=== PATIENT | female | born 1940 | race Caucasian/White ===

== ENCOUNTER → 2016-10-13 | Outpatient (CLI) | payer OTHER ==
[~2016-10-13] MED LIST: ACETTAB14 PO; ALPR-385 PO; ALPR-411 PO; AMLO-110 PO; CHOL1000 PO; COEN100C11 PO; CYAN50TA2 PO; DOCU-94 PO; DOCU100C31 PO; ESOM20CA PO; HYDR-3419 PO; LETR2TAB PO; MAGN1CAP2 PO; MAGN400T6 PO; MONT1TAB3 PO; NRV5 PO; ONDA4TAB4 PO; ONDA4TAB46 PO; PRLSR20 PO; SULF800T23 PO; TURM500T PO; [UNRECOGNIZED DRUG - CODE] PO; coq10 PO; tumeric PO
--- NOTE | 2016-10-13 13:21 | DIAGNOSTIC IMAGING REPORT ---
ABDOMEN 2VIEW W/PA CHEST RTN CLINICAL HISTORY: R14.0 Abdominal [id number] COMPARISON STUDY: Chest x-ray dated 12/05/2014 FINDINGS: The left-sided A-Port catheter has been removed. Surgical clips project over both axillary regions. The heart is at the upper limits of normal in size. There is no free air. There are suspected bilateral breast implants. There is no focal pulmonary consolidation. There are no abnormally dilated loops of large or small bowel. There are no transition zone to indicate bowel obstruction. There are scattered stool throughout the colon. Degenerative changes are present within the lumbar spine. IMPRESSION: No evidence of bowel obstruction. No evidence of free air. Electronically signed by: Je Romero M.D. 10/13/2016 1:19 PM Dictated Date/Time: 10/13/2016 1:18 PM
== END | disposition home or self-care (01) ==
LOC: C.RAD1850 12:44
PROVIDERS: ATTEND Internal Medicine
DX: R14.0 Abdominal distension (gaseous) (principal)

== ENCOUNTER → 2016-10-20 | Outpatient (CLI) | payer OTHER ==
--- NOTE | 2016-10-20 13:54 | DIAGNOSTIC IMAGING REPORT ---
NUCLEAR GASTRIC EMPTYING STUDY HISTORY: Abdominal bloating. COMPARISON: None. TECHNIQUE: Following the oral administration of 1 mCi of technetium 99m sulfur colloid in egg sandwich and 8 ounces of water, static abdominal images are obtained anteriorly and posteriorly at 0 minutes, 1 hour, 2 hour, and 4 hour time intervals. Gastric emptying was calculated utilizing the geometric mean method. FINDINGS: There is approximately 83% activity remaining at the 1 hour time interval (normal is less than 90%), 47% remaining at the 2 hour time interval (normal is less than 60%), and 1% activity remaining at the 4 hour time interval (normal is less than 10%). IMPRESSION: No evidence for delayed gastric emptying. Electronically signed by: Emil Lindsey M.D. 10/20/2016 1:53 PM Dictated Date/Time: 10/20/2016 1:52 PM
== END | disposition home or self-care (01) ==
LOC: C.NUCL 09:10
PROVIDERS: ATTEND Internal Medicine
DX: R14.0 Abdominal distension (gaseous) (principal)

== ENCOUNTER → 2016-11-01 | Outpatient (CLI) | payer OTHER ==
--- NOTE | 2016-11-01 14:09 | DIAGNOSTIC IMAGING REPORT ---
LEFT SHOULDER 3 VIEWS CLINICAL HISTORY: Left shoulder pain. FINDINGS: 3 views of the left shoulder are compared to study dated 07/05/2014. The skeletal structures are osteopenic. There is no radiographic evidence of fracture or dislocation. Minimal productive change is seen at the acromioclavicular articulation. The glenohumeral joint is preserved. The overlying soft tissues are within normal limits. Left axillary surgical clips are identified. The visualized left lung parenchyma appears clear. There is atherosclerotic calcification of the thoracic area. IMPRESSION: No acute bony abnormality is seen in the left shoulder. Electronically signed by: Rashid Jarvis M.D. 11/01/2016 2:08 PM Dictated Date/Time: 11/01/2016 2:07 PM
== END | disposition home or self-care (01) ==
LOC: C.RAD1850 13:15
PROVIDERS: ATTEND Internal Medicine
DX: M25.512 Pain in left shoulder (principal)

== ENCOUNTER → 2016-12-01 | Outpatient (CLI) | payer OTHER ==
[2016-12-01 17:27] LABS: BASO % 1.2 %; BASO ABS # 0.06 K/uL (0-0.2); COMPLETE YES; EOS % 2.3 %; HEMATOCRIT 37.3 % (37-47); IG% 0.4 %; LYMPH % 26.3 %; LYMPH ABS # 1.37 K/uL (1.2-3.4); MEAN CELL VOLUME 85.2 fL (80-100); MEAN CORPUSCULAR HEMOGLOBIN 29.2 pg (25-34); MEAN CORPUSCULAR HGB CONC 34.3 g/dl (32-36); MONO % 6.7 %; NEUT % 63.1 %; PLATELET COUNT 243 K/uL (130-400); RED BLOOD COUNT 4.38 M/uL (4.2-5.4)
[2016-12-01 17:39] LABS: ALT/SGPT 21 U/L (12-78); AST/SGOT 10 U/L (15-37); BLOOD UREA NITROGEN 15 mg/dl (7-18); BUN/CREATININE RATIO 14.9 (10-20); CALCIUM 9.8 mg/dl (8.5-10.1); CARBON DIOXIDE 29 mmol/L (21-32); CHLORIDE 101 mmol/L (98-107); GLUCOSE 100 mg/dl (70-99); SODIUM 139 mmol/L (136-145)
[2016-12-01 17:42] LABS: ALB/GLOB RATIO 1.1 (0.9-2); ALKALINE PHOSPHATASE 84 U/L (45-117)
== END | disposition home or self-care (01) ==
LOC: C.LABBFT 10:16
PROVIDERS: ATTEND Internal Medicine Hematology & Oncology
DX: C50.912 Malignant neoplasm of unspecified site of left female breast (principal); I10 Essential (primary) hypertension

== ENCOUNTER → 2016-12-09 | Outpatient (CLI) | payer OTHER ==
--- NOTE | 2016-12-09 09:53 | DIAGNOSTIC IMAGING REPORT ---
CHEST CT WITH CONTRAST CT DOSE: 341.00 mGy.cm HISTORY: PULMONARY NODULES TECHNIQUE: Multiaxial CT images of the chest were performed following the intravenous administration of contrast. COMPARISON: 12/04/2015 FINDINGS: The small pleural-based nodules present described are stable to slightly diminished in size. There is no evidence for new interval or progressive process. Lungs currently are considered clear. There is no significant hilar or mediastinal adenopathy. Limited evaluation the upper abdomen shows fatty infiltration of liver. Bilateral breast augmentation mammoplasties are noted. IMPRESSION: Stable to improved low suspicion ulnar nodularity primarily of the right hemithorax. 2. No evidence for new interval or progressive process. 3. One additional 1 year follow-up is suggested Electronically signed by: Anthony Hamilton M.D. 12/09/2016 9:52 AM Dictated Date/Time: 12/09/2016 9:47 AM
== END | disposition home or self-care (01) ==
LOC: C.CTS 09:27
PROVIDERS: ATTEND Internal Medicine
DX: R91.1 Solitary pulmonary nodule (principal)

== ENCOUNTER → 2017-01-28 | Outpatient (CLI) | payer OTHER ==
[~2017-01-28] MED LIST changes: -ACETTAB14 PO; +ACETTAB15 PO
== END | disposition home or self-care (01) ==
LOC: C.LABSPEC 14:47
PROVIDERS: ATTEND Internal Medicine
DX: D64.9 Anemia, unspecified (principal)

== ENCOUNTER → 2017-02-01 | Outpatient (CLI) | payer OTHER ==
--- NOTE | 2017-02-15 07:48 | CODING QUERY MEDICAL NECESSITY ---
SUPPORTING DIAGNOSIS NEEDED Dr. Tinajero, A supporting diagnosis is required for the test/procedure performed on this patient in order for us to be reimbursed by the patient's insurance. Please provide a supporting diagnosis for the following test/procedure listed below next to the test name along with your signature. *If there is no additional diagnosis for this patient that would support the following test/procedure please document that below next to the test/procedure. Test(s)/Procedure(s) that require a supporting diagnosis: * ([id number]) DXA BONE DENSITY, AXIAL DIAGNOSIS: DATE OF SERVICE: 02/01/17 Provider Signature: Date: Thank you Aristides Nevarez [facility] Information Management Once completed, please kindly fax back to [phone] For questions please call [phone]
== END | disposition home or self-care (01) ==
LOC: C.MAMM 09:23
PROVIDERS: ATTEND Internal Medicine Hematology & Oncology
DX: C50.412 Malignant neoplasm of upper-outer quadrant of left female breast (principal)

== ENCOUNTER → 2017-03-14 | Outpatient (CLI) | payer OTHER ==
--- NOTE | 2017-03-14 16:46 | DIAGNOSTIC IMAGING REPORT ---
ULTRASOUND RIGHT VENOUS DOPPLER UPR EXT UNILAT CLINICAL HISTORY: Right arm pain and swelling COMPARISON STUDY: No previous studies for comparison. FINDINGS: No intraluminal thrombus was visualized. The internal jugular, subclavian, axillary, cephalic, brachial, basilic, radial, and ulnar veins were patent. IMPRESSION: No evidence of right upper extremity DVT. Electronically signed by: Je Romero M.D. 03/14/2017 4:44 PM Dictated Date/Time: 03/14/2017 4:44 PM
--- NOTE | 2017-03-18 11:26 | CODING QUERY MEDICAL NECESSITY ---
SUPPORTING DIAGNOSIS NEEDED Shapich, A supporting diagnosis is required for the test/procedure performed on this patient in order for us to be reimbursed by the patient's insurance. Please provide a supporting diagnosis for the following test/procedure listed below next to the test name along with your signature. *If there is no additional diagnosis for this patient that would support the following test/procedure please document that below next to the test/procedure. Test(s)/Procedure(s) that require a supporting diagnosis: * ([id number]) VENOUS DOPPLER UPPER EXT UNILA DIAGNOSIS: DATE OF SERVICE: 03/14/17 Provider Signature: Date: Thank you Aristides Nevarez [facility] Information Management Once completed, please kindly fax back to [phone] For questions please call [phone]
== END | disposition home or self-care (01) ==
LOC: C.ULTR 15:27
PROVIDERS: ATTEND Physician Assistant Medical
DX: M79.89 Other specified soft tissue disorders (principal)

== ENCOUNTER 2017-03-25 12:22 | Emergency (ER) | payer OTHER ==
[~2017-03-25] VITALS: Ht 160 cm; Wt 65.1 kg
[~2017-03-25 12:22] MED LIST changes: -ACETTAB15 PO; -ALPR-385 PO; -AMLO-110 PO; -CHOL1000 PO; -COEN100C11 PO; -CYAN50TA2 PO; -DOCU-94 PO; -MAGN400T6 PO; -ONDA4TAB46 PO; -PRLSR20 PO; -SULF800T23 PO; -TURM500T PO; -[UNRECOGNIZED DRUG - CODE] PO
[2017-03-25 12:24] VITALS: Ht 160 cm; Wt 65.1 kg
[2017-03-25] MEDS ORDERED: TURM500T PO (13:15)
[2017-03-25] MEDS ORDERED: DOCU-94 PO (13:15)
[2017-03-25] MEDS ORDERED: CYAN50TA2 PO (13:15)
[2017-03-25] MEDS ORDERED: SULF800T23 PO (13:15)
[2017-03-25] MEDS ORDERED: [UNRECOGNIZED DRUG - CODE] PO (13:15)
[2017-03-25] MEDS ORDERED: ALPR-385 PO (13:15)
[2017-03-25] MEDS ORDERED: MAGN400T6 PO (13:15)
[2017-03-25] MEDS ORDERED: AMLO-110 PO (13:15)
[2017-03-25] MEDS ORDERED: CHOL1000 PO (13:15)
[2017-03-25] MEDS ORDERED: COEN100C11 PO (13:15)
[2017-03-25] MEDS ORDERED: ONDA4TAB46 PO (13:15)
[2017-03-25] MEDS ORDERED: PRLSR20 PO (13:15)
[2017-03-25] MEDS ORDERED: ACETTAB14 PO (13:18)
[2017-03-25 14:34] LABS: BASO % 1.1 %; BASO ABS # 0.05 K/uL (0-0.2); COMPLETE YES; EOS % 1.7 %; HEMATOCRIT 39.2 % (37-47); IG% 0.2 %; LYMPH % 21.8 %; LYMPH ABS # 1.02 K/uL (1.2-3.4); MEAN CELL VOLUME 89.3 fL (80-100); MEAN CORPUSCULAR HEMOGLOBIN 29.6 pg (25-34); MEAN CORPUSCULAR HGB CONC 33.2 g/dl (32-36); MEAN PLATELET VOLUME 8.4 fL (7.4-10.4); MONO % 7.3 %; NEUT % 67.9 %; PLATELET COUNT 217 K/uL (130-400); RED BLOOD COUNT 4.39 M/uL (4.2-5.4); WHITE BLOOD COUNT 4.68 K/uL (4.8-10.8)
[2017-03-25 14:55] LABS: INR 0.9 (0.9-1.1); PARTIAL THROMBOPLASTIN RATIO 0.9; PROTHROMBIN TIME (PATIENT) 9.2 SECONDS (9.0-12.0)
[2017-03-25 15:00] LABS: BUN/CREATININE RATIO 12.9 (10-20); CALCIUM 9.6 mg/dl (8.5-10.1); CREATININE 1.1 mg/dl (0.60-1.20); POTASSIUM 4.8 mmol/L (3.5-5.1)
--- NOTE | 2017-03-25 15:05 | DIAGNOSTIC IMAGING REPORT ---
RIGHT UPPER EXTREMITY VENOUS DOPPLER ULTRASOUND CLINICAL HISTORY: Right arm swelling. COMPARISON STUDY: Right upper extremity venous Doppler March 14, 2017. FINDINGS: No deep venous thrombus is identified within the right upper extremity. The right internal jugular subclavian, axillary, brachial, basilic, radial and ulnar veins were patent. IMPRESSION: No deep venous thrombus within the right upper extremity. Electronically signed by: Stalin Booth M.D. 03/25/2017 3:03 PM Dictated Date/Time: 03/25/2017 3:02 PM
--- NOTE | 2017-03-25 15:50 | EMERGENCY ROOM VISIT NOTE ---
History Report prepared by Alpa: Cici Hodges Under the Supervision of: Dr. Mauricio De La Cruz M.D. First contact with patient: 13:07 Chief Complaint: SWELLING TO EXTREMITY Stated Complaint: SWELLING AND TIGHTNESS TO RIGHT ARM History of Present Illness The patient is a 76 year old female who presents to the Emergency Room with complaints of right arm swelling beginning 2 weeks ago. The patient reports no pain of her arm, just swelling. She reports that the swelling started to go down slowly but then her arm became more swollen this morning. The patient was placed on Bactrim for her symptoms. She reports that she is right-handed and has been doing yard work recently. She also states that she had breast cancer and that 21 lymph nodes were taken out of her right arm. She denies fevers, chest pain, and shortness of breath. Source of History: patient Onset: 2 weeks ago Position: arm (right) Quality: other (swollen ) Associated Symptoms: No fevers, No chest pain, No SOB Note: additional symptom: blisters on tongue Review of Systems See HPI for pertinent positives & negatives. A total of 10 systems reviewed and were otherwise negative. Past Medical & Surgical Medical Problems: (1) Anxiety (2) Breast cancer (3) Carcinoma of upper-outer quadrant of right female breast (4) Gastroenteritis (5) History of left knee replacement (6) Hypertension (7) Kidney stones (8) Urinary tract infection Surgical Problems: (1) H/O bilateral mastectomy (2) H/O: hysterectomy (3) S/P tonsillectomy Family History Cancer Heart disease Hypertension Kidney stones Lung disease Social History Smoking Status: Former Smoker Alcohol Use: occasionally Housing Status: unknown Occupation Status: unemployed Current/Historical Medications Scheduled Alprazolam (Xanax), 1 MG PO BID Amlodipine (Norvasc), 5 MG PO DAILY Cholecalciferol (Vitamin D3), 1 TAB PO DAILY Coenzyme Q10 (Ubidecarenone) (Coq-10), 1 TAB PO DAILY Cyanocobalamin (Vitamin B-12), 1 TAB PO DAILY Docusate Sodium (Colace), 1 CAP PO BID Letrozole (Femara), 2.5 MG PO DAILY Magnesium Oxide (Mag-Ox), 800 MG PO DAILY Montelukast Sodium (Montelukast Sodium), 5 MG PO DAILY Omeprazole (Prilosec), 20 MG PO BID Sulfa/Trimethoprim (Bactrim Ds 800MG/160MG), 1 TAB PO BID Turmeric (Curcuma Longa) (Turmeric), 1 TAB PO DAILY Scheduled PRN Acetaminophen-Caffeine (Excedrin Tension Headache), 1 TAB PO UD PRN for Headache Ondansetron Hcl (Zofran), 4 MG PO UD PRN for Nausea Allergies Coded Allergies: Tetanus Toxoids (Verified Allergy, Severe, Anaphylaxis, 03/07/15) Penicillins (Verified Allergy, Intermediate, Rash, 03/07/15) Sulfa Antibiotics (Verified Allergy, Unknown, RASH, 03/07/15) Physical Exam Vital Signs Date Time Temp Pulse Resp B/P (MAP) Pulse Ox O2 Delivery O2 Flow Rate FiO2 03/25/17 14:13 51 18 149/78 98 Room Air 03/25/17 12:24 36.7 83 18 149/83 93 Room Air Physical Exam Constitutional: Vital signs reviewed. Eyes: Pupils are equal round reactive to light. Conjunctiva are noninjected. ENT: Pharynx is clear without erythema or exudate. Mucous membranes are moist. Neck supple without meningeal signs. Respiratory: Clear to auscultation bilaterally. Breath sounds are equal bilaterally. Cardiovascular: Regular rate and rhythm. No rubs or gallops. GI: Soft, nondistended and nontender. Bowel sounds are present. Musculoskeletal: Swelling to right arm with normal distal pulses. No erythema or increased warmth. No lower extremity tenderness. Integumentary: No cyanosis. Neurological: The patient is awake and alert. No focal deficits. Psychiatric: Normal affect. Medical Decision & Procedures ER Provider Diagnostic Interpretation: Radiology results as stated below per my review and the radiologist's interpretation: RIGHT UPPER EXTREMITY VENOUS DOPPLER ULTRASOUND CLINICAL HISTORY: Right arm swelling. COMPARISON STUDY: Right upper extremity venous Doppler March 14, 2017. FINDINGS: No deep venous thrombus is identified within the right upper extremity. The right internal jugular subclavian, axillary, brachial, basilic, radial and ulnar veins were patent. IMPRESSION: No deep venous thrombus within the right upper extremity. Electronically signed by: Stalin Booth M.D. 03/25/2017 3:03 PM Dictated Date/Time: 03/25/2017 3:02 PM Laboratory Results 03/25/17 14:10 Red Blood Count 4.39, Mean Corpuscular Volume 89.3, Mean Corpuscular Hemoglobin 29.6, Mean Corpuscular Hemoglobin Concent 33.2, Mean Platelet Volume 8.4, Neutrophils (%) (Auto) 67.9, Lymphocytes (%) (Auto) 21.8, Monocytes (%) (Auto) 7.3, Eosinophils (%) (Auto) 1.7, Basophils (%) (Auto) 1.1, Neutrophils # (Auto) 3.18, Lymphocytes # (Auto) 1.02, Monocytes # (Auto) 0.34, Eosinophils # (Auto) 0.08, Basophils # (Auto) 0.05 03/25/17 14:10 Test 03/25/17 14:10 White Blood Count 4.68 K/uL (4.8-10.8) Red Blood Count 4.39 M/uL (4.2-5.4) Hemoglobin 13.0 g/dL (12.0-16.0) Hematocrit 39.2 % (37-47) Mean Corpuscular Volume 89.3 fL (80-100) Mean Corpuscular Hemoglobin 29.6 pg (25-34) Mean Corpuscular Hemoglobin Concent 33.2 g/dl (32-36) Platelet Count 217 K/uL (130-400) Mean Platelet Volume 8.4 fL (7.4-10.4) Neutrophils (%) (Auto) 67.9 % Lymphocytes (%) (Auto) 21.8 % Monocytes (%) (Auto) 7.3 % Eosinophils (%) (Auto) 1.7 % Basophils (%) (Auto) 1.1 % Neutrophils # (Auto) 3.18 K/uL (1.4-6.5) Lymphocytes # (Auto) 1.02 K/uL (1.2-3.4) Monocytes # (Auto) 0.34 K/uL (0.11-0.59) Eosinophils # (Auto) 0.08 K/uL (0-0.5) Basophils # (Auto) 0.05 K/uL (0-0.2) RDW Standard Deviation 44.6 fL (36.4-46.3) RDW Coefficient of Variation 13.5 % (11.5-14.5) Immature Granulocyte % (Auto) 0.2 % Immature Granulocyte # (Auto) 0.01 K/uL (0.00-0.02) Prothrombin Time 9.2 SECONDS (9.0-12.0) Prothromb Time International Ratio 0.9 (0.9-1.1) Activated Partial Thromboplast Time 23.0 SECONDS (21.0-31.0) Partial Thromboplastin Ratio 0.9 Anion Gap 5.0 mmol/L (3-11) Est Creatinine Clear Calc Drug Dose 40.1 ml/min Estimated GFR () 56.9 Estimated GFR (Non- 49.1 BUN/Creatinine Ratio 12.9 (10-20) Calcium Level 9.6 mg/dl (8.5-10.1) Laboratory results as reviewed by me. ED Course 1310: The patient was evaluated in room B6. A complete history and physical exam was performed. 1522: I talked to the patient about her test results. She will continue her Bactrim as prescribed. 1524: Upon reevaluation, the patient appeared to have improvement of her symptoms. I discussed dawnight's findings with her. She verbalized agreement of the treatment plan. She was discharged home. Medical Decision This is a 76-year-old female who presents with right arm swelling. Differential diagnosis includes lymphedema, DVT, superficial thrombophlebitis, infection, myositis. I did perform a limited focused review of portions of the patient's old chart on the electronic medical record. The patient had an ultrasound of the right upper extremity done on March 14 which showed no clot. Blood Pressure Screening: Patient was found to have an elevated blood pressure and was referred to their primary doctor for recheck and further treatment. Medication Reconciliation: I attest that I have personally reviewed the patient' s current medication list. I did evaluate the patient as noted above. The patient is presenting with swelling to her right arm without any pain or any other symptoms. She denies any fever, chest pain or shortness of breath. The arm is unremarkable other than some swelling. She is on antibiotics which was prescribed by her doctor although there are no signs of cellulitis or infection. She does have a prior history of lymph node dissection on that side. IV access was established. I did order and review the patient's blood work as noted in the electronic medical record. I did order Doppler ultrasound of the right upper extremity. I did review the images myself as well as the radiology report as described above. There is no DVT. I did discuss the test results with the patient and her family. I did recommend close follow up with her doctor for further evaluation. She will continue the antibiotics as prescribed and was discharged in good condition. She was given return instructions as outlined below. Impression Primary Impression: Swelling of right upper extremity Scribe Attestation The scribe's documentation has been prepared under my direct and personally reviewed by me in its entirety. I confirm that the note above accurately reflects all work, treatment, procedures, and medical decision making performed by me. Departure Information Dispostion Home / Self-Care Referrals Tip Byers M.D. Forms HOME CARE DOCUMENTATION FORM, IMPORTANT VISIT INFORMATION, WORK / SCHOOL INSTRUCTIONS Patient Instructions My [facility] Additional Instructions You have been examined and treated today on an emergency basis only. This is not a substitute for, or an effort to provide, complete comprehensive medical care. It is impossible to recognize and treat all injuries or illnesses in a single emergency department visit. It is therefore important that you follow up closely with your physician. Call as soon as possible for an appointment. Return for worsening symptoms or if you develop fever, vomiting, chest pain, shortness breath, redness or increased warmth the arm, numbness or weakness to the arm, or any other concerning symptoms.
[2017-03-25 15:55] VITALS: BP 146/76; PULSE 55; TEMP 36.7; O2SAT 96
== END 2017-03-25 15:56 | disposition home or self-care (01) ==
LOC: C.EDB 12:24
DX: M79.89 Other specified soft tissue disorders (principal); Z85.3 Personal history of malignant neoplasm of breast; F41.9 Anxiety disorder, unspecified; I10 Essential (primary) hypertension; Z87.442 Personal history of urinary calculi; Z87.440 Personal history of urinary (tract) infections; Z96.652 Presence of left artificial knee joint; Z80.9 Family history of malignant neoplasm, unspecified; Z82.49 Family history of ischemic heart disease and other diseases of the circulatory system; Z84.1 Family history of disorders of kidney and ureter; Z83.6 Family history of other diseases of the respiratory system; Z87.891 Personal history of nicotine dependence; Z79.899 Other long term (current) drug therapy; M79.601 Pain in right arm

== ENCOUNTER → 2017-07-06 | Outpatient (CLI) | payer OTHER ==
[~2017-07-06] MED LIST changes: +ACETTAB15 PO; +ALPR-385 PO; -ALPR-411 PO; +AMLO-110 PO; +CHOL1000 PO; +COEN100C11 PO; +CYAN50TA2 PO; +DOCU-94 PO; -DOCU100C31 PO; -ESOM20CA PO; -HYDR-3419 PO; -MAGN1CAP2 PO; +MAGN400T6 PO; -MONT1TAB3 PO; -NRV5 PO; -ONDA4TAB4 PO; +ONDA4TAB46 PO; +PRLSR20 PO; +SULF800T23 PO; +TURM500T PO; +[UNRECOGNIZED DRUG - CODE] PO; -coq10 PO; -tumeric PO
[2017-07-06 14:37] VITALS: BP 116/74; PULSE 78; TEMP 36.5; O2SAT 94
--- NOTE | 2017-07-06 17:05 | Radiation Oncology Follow-Up ---
Radiation Oncology Follow-Up Date of Visit Jul 06, 2017. Reason For Visit Annual follow-up Radiation Completion Date 05/16/14 Diagnosis (1) Breast cancer Status: Resolved Onset Date: 06/22/2013 Histology Subtype: ductal Stage: lll Permanent Comment: Abnormal right breast mammogram Status post ultrasound-guided biopsy 06/22/2013 revealing moderately differentiated invasive ductal carcinoma Estrogen receptor positive, progesterone receptor positive HER-2/ismael negative Status post left breast biopsy 07/13/2013 that was benign Status post bilateral mastectomies with sentinel lymph node biopsy, placement of tissue expanders Stage pT3 pN2 M0 Status post completion of systemic chemotherapy comprised of Adriamycin and Cytoxan followed with Taxol Status post completion of radiation therapy 05/16/2014 received 6120 cGy Status post placement of permanent implants Last Edited By: Yolanda Colmenares on Jun 20, 2015 07:52 Interim History She has noticed no changes to the chest wall over this past year. There is no complaint of tenderness. She is noted no masses and no change of the axilla. She did unfortunately develop lymphedema of her right arm. She was seen and referred to [facility]. She received treatment and now wears a sleeve on a regular basis. She is doing her saws exercises as instructed. She does continue to have some swelling in the arm. She continues on Femara. She denies side effects. She is having follow-up X scans through medical oncology. She wished to review the results of her last DEXA scan. She also wanted to review her laboratory studies. She is unhappy that she has gained 30 pounds over this past year. She states that she is very hungry at night. Throughout the day she does well with the calorie intake. Allergies Coded Allergies: Tetanus Toxoids (Verified Allergy, Severe, Anaphylaxis, 03/07/15) Penicillins (Verified Allergy, Intermediate, Rash, 03/07/15) Sulfa Antibiotics (Verified Allergy, Unknown, RASH, 03/07/15) Home Medications Scheduled Alprazolam (Xanax), 1 MG PO BID Amlodipine (Norvasc), 5 MG PO DAILY Cholecalciferol (Vitamin D3), 1 TAB PO DAILY Coenzyme Q10 (Ubidecarenone) (Coq-10), 1 TAB PO DAILY Cyanocobalamin (Vitamin B-12), 1 TAB PO DAILY Docusate Sodium (Colace), 1 CAP PO BID Letrozole (Femara), 2.5 MG PO DAILY Magnesium Oxide (Mag-Ox), 800 MG PO DAILY Montelukast Sodium (Montelukast Sodium), 5 MG PO DAILY Omeprazole (Prilosec), 20 MG PO BID Turmeric (Curcuma Longa) (Turmeric), 1 TAB PO DAILY Scheduled PRN Acetaminophen-Caffeine (Excedrin Tension Headache), 1 TAB PO UD PRN for Headache Ondansetron Hcl (Zofran), 4 MG PO UD PRN for Nausea Review of Systems Gastrointestinal: Symptoms: Indigestion Oral: Symptoms: No Problems Respiratory: Symptoms: WNL Urinary: Symptoms: WNL Skin: Symptoms: No Problems Breast: Right Upper Arm Measurement: 33.5 Right Mid Arm Measurement: 28.0 Right Wrist Measurement: 16.5 Left Upper Arm Measurement: 29.0 Left Mid Arm Measurement: 21.5 Left Wrist Measurement: 15.0 Arm Dominence: Right Physical Exam Vital Signs Date Time Temp Pulse Resp B/P (MAP) Pulse Ox O2 Delivery O2 Flow Rate FiO2 07/06/17 14:37 36.5 78 18 116/74 94 Pain: Patient Pain Scale: 0 - 10 Initial Pain Intensity: 0.0 Fatigue: None General Appearance: no apparent distress Eyes: normal inspection, EOMI ENT: normal ENT inspection, hearing grossly normal Neck: no adenopathy, thyroid normal Respiratory/Chest: lungs clear, no respiratory distress, no accessory muscle use Breast: Examination reveals bilateral implanted breasts. There are no masses or tenderness and no axillary adenopathy. Using the Dublin score cosmesis she has a good outcome. There is some mild fibrous changes the lateral aspect of the right breast. Cardiovascular: regular rate, rhythm, no gallop, no murmur Abdomen: non tender, soft, no organomegaly Extremities: no pedal edema Neurologic/Psychiatric: no motor/sensory deficits, alert, normal mood/affect Skin: warm/dry Laboratory Studies Test 04/22/17 09:40 White Blood Count 4.90 K/uL (4.8-10.8) Red Blood Count 4.40 M/uL (4.2-5.4) Hemoglobin 13.0 g/dL (12.0-16.0) Hematocrit 39.3 % (37-47) Mean Corpuscular Volume 89.3 fL (80-100) Mean Corpuscular Hemoglobin 29.5 pg (25-34) Mean Corpuscular Hemoglobin Concent 33.1 g/dl (32-36) Platelet Count 216 K/uL (130-400) Mean Platelet Volume 8.7 fL (7.4-10.4) Neutrophils (%) (Auto) 56.7 % Lymphocytes (%) (Auto) 30.8 % Monocytes (%) (Auto) 8.4 % Eosinophils (%) (Auto) 2.7 % Basophils (%) (Auto) 1.2 % Neutrophils # (Auto) 2.78 K/uL (1.4-6.5) Lymphocytes # (Auto) 1.51 K/uL (1.2-3.4) Monocytes # (Auto) 0.41 K/uL (0.11-0.59) Eosinophils # (Auto) 0.13 K/uL (0-0.5) Basophils # (Auto) 0.06 K/uL (0-0.2) RDW Standard Deviation 42.3 fL (36.4-46.3) RDW Coefficient of Variation 13.0 % (11.5-14.5) Immature Granulocyte % (Auto) 0.2 % Immature Granulocyte # (Auto) 0.01 K/uL (0.00-0.02) CA 27.29 41 U/ML (<38) Assessment & Plan Plan: We reviewed her DEXA scan. This showed her fracture risk to be low. We discussed her laboratory studies. Though her CA-27-29 is mild elevated it is very stable. We discussed her weight gain. We reviewed increasing exercise. She does have an exercise bicycle that she could use. We discussed her use of Xanax for anxiety. This can cause daytime fatigue which will cause her to nap and then have difficulty with sleep at night. This can lead to weight gain also. She stated that she had contemplated restarting cigarette smoking. This was unadvised. I've asked her to make an appointment with her primary care physician if she continues to have issues with weight gain. We discussed using melatonin to help with sleep at bedtime. We asked her to return to our office in 1 year. She may call if she has any questions or concerns in the interim. Total Time In Follow-Up I spent 25 minutes with the patient performing examination. I spent 15 minutes reviewing information in completing this note. Copy To Tip Byers M.D.; Cinthya Cruz CRNP Problem Qualifiers (1) Breast cancer: Breast location: upper outer quadrant of breast Estrogen receptor status: positive Patient sex: female Laterality: right Qualified Codes: C50.411 - Malignant neoplasm of upper-outer quadrant of right female breast; Z17.0 - Estrogen receptor positive status [ER+]
== END | disposition home or self-care (01) ==
LOC: C.ONC 14:20
PROVIDERS: ATTEND Physician Assistant Medical
DX: Z08 Encounter for follow-up examination after completed treatment for malignant neoplasm (principal); Z92.3 Personal history of irradiation; Z85.3 Personal history of malignant neoplasm of breast

== ENCOUNTER → 2017-12-12 | Outpatient (CLI) | payer OTHER ==
[~2017-12-12] MED LIST changes: -SULF800T23 PO
--- NOTE | 2017-12-12 15:01 | DIAGNOSTIC IMAGING REPORT ---
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 Follow-up study in a patient with pulmonary nodules and history of breast cancer TECHNIQUE: Multiaxial CT images of the chest were performed without contrast. A dose lowering technique was utilized adhering to the principles of ALARA. COMPARISON: CT chest 12/09/2016. FINDINGS: No dominant thyroid nodule identified. Surgical clips of the bilateral axilla compatible with prior axillary node dissection. Bilateral saline breast augmentation devices are noted with suggested radial folds. Heart is normal in size without pericardial effusion. Coronary arterial disease. Moderate calcification of the thoracic aorta without aneurysm. No pathologically enlarged lymph nodes are identified. Mild biapical pleural-parenchymal scarring with moderate centrilobular emphysema. Subpleural reticulation about the right upper lobe may reflect posttreatment changes/pleural parenchymal scarring. Small left Bochdalek hernia. 2 mm nodule of the right upper lobe is noted on image 61 of series 4, not definitely seen on comparison. No new suspicious pulmonary nodules identified. The central airways appear patent. Mild degree of secretions are seen within the bronchi at the level of the lung bases. Unchanged pleural-based 8 mm area of reticulation of the right upper lobe suggest scarring. No acute abnormality of the imaged upper abdomen. Small sliding-type hiatal hernia. No suspicious lytic or blastic bony lesions. Moderate multilevel spurring about the spine. IMPRESSION: 1. No acute intrathoracic abnormality identified. No new or enlarging suspicious pulmonary nodules identified to suggest metastatic disease. 2. No pathologic adenopathy or focal airspace consolidation. 3. Emphysema with areas of chronic scarring. 4. Prior bilateral axillary node dissection with bilateral breast augmentation. Electronically signed by: Zeeshan Birmingham M.D. 12/12/2017 2:59 PM Dictated Date/Time: 12/12/2017 2:46 PM
== END | disposition home or self-care (01) ==
LOC: C.CTS 14:28
PROVIDERS: ATTEND Internal Medicine
DX: C50.919 Malignant neoplasm of unspecified site of unspecified female breast (principal); R91.1 Solitary pulmonary nodule; J43.9 Emphysema, unspecified; Z98.82 Breast implant status

== ENCOUNTER → 2018-01-24 | Outpatient (CLI) | payer OTHER ==
[2018-01-24 16:48] LABS: ALBUMIN 3.6 gm/dl (3.4-5.0); ALT/SGPT 26 U/L (12-78); AST/SGOT 19 U/L (15-37); BLOOD UREA NITROGEN 16 mg/dl (7-18); CARBON DIOXIDE 28 mmol/L (21-32); CREATININE 0.87 mg/dl (0.60-1.20); GLUCOSE 106 mg/dl (70-99); POTASSIUM 4.1 mmol/L (3.5-5.1); SODIUM 136 mmol/L (136-145)
[2018-01-24 16:51] LABS: ALKALINE PHOSPHATASE 86 U/L (45-117); TOTAL PROTEIN 7.3 gm/dl (6.4-8.2)
[2018-01-24 16:54] LABS: BASO % 0.9 %; BASO ABS # 0.04 K/uL (0-0.2); EOS % 3.4 %; EOS ABS # 0.15 K/uL (0-0.5); HEMATOCRIT 38.3 % (37-47); LYMPH % 30.3 %; LYMPH ABS # 1.32 K/uL (1.2-3.4); MEAN CELL VOLUME 83.4 fL (80-100); MEAN CORPUSCULAR HEMOGLOBIN 28.3 pg (25-34); MEAN CORPUSCULAR HGB CONC 33.9 g/dl (32-36); MEAN PLATELET VOLUME 8.9 fL (7.4-10.4); MONO % 8.3 %; MONO ABS # 0.36 K/uL (0.11-0.59); NEUT % 57.1 %; NEUT ABS # 2.48 K/uL (1.4-6.5); PLATELET COUNT 271 K/uL (130-400); RED CELL DISTRIBUTION WIDTH CV 13.6 % (11.5-14.5); RED CELL DISTRIBUTION WIDTH SD 41.3 fL (36.4-46.3); WHITE BLOOD COUNT 4.35 K/uL (4.8-10.8)
== END | disposition home or self-care (01) ==
LOC: C.LABBFT 13:24
PROVIDERS: ATTEND Nurse Practitioner Family
DX: C50.412 Malignant neoplasm of upper-outer quadrant of left female breast (principal)

== ENCOUNTER → 2018-01-26 | Outpatient (CLI) | payer OTHER ==
[~2018-01-26] MED LIST changes: +GADAVIST IV PRN
--- NOTE | 2018-01-26 17:24 | DIAGNOSTIC IMAGING REPORT ---
CHEST COMBO CLINICAL HISTORY: 77 years-old Female presenting with BREAST CA, history of saline breast implants, double mastectomy, status post radiation and chemotherapy, clinical concern for mass behind the implants. TECHNIQUE: Multisequence, multiplanar MR imaging of the chest was performed before and after the administration of intravenous contrast. IV contrast: 6.3 mL of Gadavist. COMPARISON: CT chest from 12/12/2017. FINDINGS: Localizer images: Unremarkable. Postsurgical changes of bilateral mastectomy with bilateral subpectoral breast implants. Signal intensity of the implants is most suggestive of silicone given the loss of signal on fat suppressed images. No evidence of intracapsular or extracapsular implant rupture. No mass lesion superficial or deep to the implants. Postcontrast imaging demonstrates no suspicious nodular enhancement. No axillary, supraclavicular, internal mammary, or mediastinal lymphadenopathy is apparent. Normal heart size. No focal consolidation within limitations of MR. No pericardial or pleural effusion. Atherosclerosis of the normal caliber aorta Upper abdomen demonstrates grossly normal solid and hollow viscera apart from small hiatal hernia. Normal bone marrow signal intensity. IMPRESSION: Expected postsurgical appearance status post bilateral mastectomy with bilateral subpectoral breast implants. No evidence of intracapsular or extracapsular rupture of the presumed silicone implants based on signal characteristics. No suspicious nodular enhancement on postcontrast imaging. No mass identified. No lymphadenopathy. Electronically signed by: Bobby Neves M.D. 01/26/2018 5:23 PM Dictated Date/Time: 01/26/2018 5:13 PM
== END | disposition home or self-care (01) ==
LOC: C.MRI 16:04
PROVIDERS: ATTEND Nurse Practitioner Family
DX: C50.412 Malignant neoplasm of upper-outer quadrant of left female breast (principal); Z98.82 Breast implant status

== ENCOUNTER → 2018-02-13 | Outpatient (CLI) | payer OTHER ==
[~2018-02-13] MED LIST changes: -GADAVIST IV PRN
== END | disposition home or self-care (01) ==
LOC: C.RDSM 17:05
PROVIDERS: ATTEND Family Medicine Sports Medicine
DX: M25.561 Pain in right knee (principal); M25.562 Pain in left knee

== ENCOUNTER 2019-11-21 09:23 | Inpatient (IN) ==
[2019-11-21] MEDS ORDERED: DAPTOmycin 400 MG in SYRINGE 0 ML IV ONE (09:44)
[2019-11-21] MEDS ORDERED: SODIUM CHLORIDE 0.9% 500 ML IV ONE (09:44)
[2019-11-21] MEDS ORDERED: CEFEPIME 2,000 MG/20 ML VIAL IV STA (09:44)
--- NOTE | 2019-11-21 10:17 | XRay Report ---
XR chest 1V portable HISTORY: 79 years-old Female SEPSIS acute sepsis COMPARISON: Chest and rib radiographs 01/10/2019 TECHNIQUE: Portable AP view of the chest FINDINGS: Cardiac silhouette is mildly enlarged. Calcified plaque of the thoracic aortic arch. Unchanged mild r ight hemidiaphragmatic elevation. Emphysema. No pneumothorax, pleural effusion, overt pulmonary edema or airspace consolidation to suggest pneumonia. Surgical clips of the bilateral axilla. Degenerative changes of the shoulders and spine. IMPRESSION: No acute process. ACT 112: Negative or not required by law. The above report was generated using voice recognition software. It may contain grammatical, syntax o r spelling errors. Electronically signed by: Zeeshan Birmingham M.D. 11/21/2019 10:16 AM
[2019-11-21 10:20] LABS: Basophils # (auto) 0.03 K/uL (0-0.2); Basophils % (auto) 0.4 %; Eosinophils # (auto) 0.05 K/uL (0-0.5); Eosinophils % (auto) 0.6 %; Hematocrit (blood only) 31.4 % (37-47); Hemoglobin 10.7 g/dL (12.0-16.0); Immature Granulocytes # (auto) 0.02 K/uL (0.00-0.02); Immature Granulocytes % (auto) 0.3 %; Lymphocytes # (auto) 0.69 K/uL (1.2-3.4); Lymphocytes % (auto) 8.9 %; Mean Corpuscular Hemoglobin 29.6 pg (25-34); Mean Corpuscular Hgb Conc 34.1 g/dL (32-36); Mean Corpuscular Volume 86.7 fL (80-100); Mean Platelet Volume 8.5 fL (7.4-10.4); Monocytes # (auto) 0.68 K/uL (0.11-0.59); Monocytes % (auto) 8.7 %; Neutrophils # (auto) 6.31 K/uL (1.4-6.5); Neutrophils % (auto) 81.1 %; Platelet Count 277 K/uL (130-400); RDW Coefficient of Variation 13.3 % (11.5-14.5); RDW Standard Deviation 42.7 fL (36.4-46.3); Red Blood Count 3.62 M/uL (4.2-5.4); White Blood Count 7.78 K/uL (4.8-10.8)
[2019-11-21 10:37] LABS: Albumin Level 2.7 gm/dl (3.4-5.0); BUN Creatinine Ratio 14.8 (10-20); Calcium 9.5 mg/dl (8.5-10.1); Creatinine Clr Calc Pharmacy 45.2 ml/min; Est GFR (Non-African American) 60.4; Magnesium 1.7 mg/dl (1.8-2.4); Potassium 3.3 mmol/L (3.5-5.1)
[2019-11-21 10:39] LABS: Partial Thromboplastin Ratio 0.9; Partial Thromboplastin Time 25.3 Seconds (21.0-31.0); Prothrombin Time 9.8 Seconds (9.0-12.0)
[2019-11-21 10:40] LABS: Albumin Globulin Ratio 0.6 (0.9-2); Bilirubin,Total 0.5 mg/dl (0.2-1); Globulin 4.3 gm/dl (2.5-4.0)
[2019-11-21] MEDS ORDERED: MAGNESIUM SULFATE / D5W 1 GM/100 ML BAG IV ONE (10:47)
[2019-11-21 11:14] LABS: Appearance Urine Clear (Clear); Bacteria Urine Automated Negative (Negative); Bilirubin Urine Negative (Negative); Blood Urine Trace (Negative); Color Urine Yellow; Glucose Urine UA Negative (Negative); Ketones Urine Negative (Negative); Leukocyte Esterase Urine Negative (Negative); Nitrite Urine Negative (Negative); Protein Urine 2+ (Negative); Urobilinogen Urine Negative (Negative); pH Urine 6.5 (4.5-7.5)
--- NOTE | 2019-11-21 11:17 | Ultrasound Report ---
US extremity non-vascular ltd HISTORY: 79 years-old Female right chest wall, axilla for abscess acute right chest wall pain and so ft tissue swelling with concern for abscess COMPARISON: Chest radiograph 11/21/2019 TECHNIQUE: Multiple real-time sonographic images of the right breast/chest wall distribution was obta ined assessing grayscale appearance and color flow. FINDINGS: Reported postoperative changes of bilateral mastectomy. Large complex fluid collection of the right c hest wall with multiple loculations measures up to 13.0 x 3.3 cm. No significant hypervascularity. Mi ld subcutaneous edema. IMPRESSION: Reported history of prior mastectomy. There is a large complex multiloculated collection with internal septations of the right chest wall measuring up to 13.0 cm. A complex seroma is the anu dom differential consideration. Correlate with clinical exam findings to exclude soft tissue infecti on. ACT 112: Negative or not required by law. The above report was generated using voice recognition software. It may contain grammatical, syntax o r spelling errors. Electronically signed by: Zeeshan Birmingham M.D. 11/21/2019 11:16 AM
--- NOTE | 2019-11-21 11:48 | History & Physical Report ---
Date of Service November 21, 2019 Assessment & Plan (1) Cellulitis of chest wall: Patient with recurrent cellulitis of right upper chest wall status post remote mastectomy. Ultrasound shows fluid collection, consideration to seroma which would be consistent with fluid that is currently draining. Patient was given daptomycin and cefepime in the emergency room as we can continue. Fluid was cultured. I did ask infectious disease as she has seen them in the past to manage antibiotics. Due to the fluid collection, will ask general surgery to evaluate to ensure that no further intervention is required at this time. Patient is on [place] as an outpatient which can be continued. (2) Hypokalemia: Oral repletion of potassium and magnesium. Recheck in the morning. (3) Hypertension: Patient is on amlodipine 5 mg daily, will continue to monitor blood pressure. Consider additional agents if blood pressure remains elevated. History of Present Illness Primary Care Provider: Tip Byers MD This is a 79-year-old female with past medical history of breast cancer status post right mastectomy, lymphedema, recurrent cellulitis that presents today complaining of cellulitis. Patient is pleasant and a very good historian. Patient has had ongoing issues with cellulitis in the right chest wall and right upper extremity. Typically it resolves with a course of doxycycline. However, patient started having flulike symptoms around . These progressed into some localized swelling and erythema in the right upper chest wall near the surgical wound, which is her typical area. She was seen at the cancer center on 11/19 and was started again on oral doxycycline. When she woke up this morning, she found that her bed linens were saturated secondary to drainage from the wound. She says while she does have erythema and pain, the draining is not typical of her course of cellulitis and she came to the emergency room for further evaluation. Patient seems to be in good spirits and is in no distress. She does have some soreness in that area. She is currently afebrile. She does note that the wound continues to drain and the erythema has tracked into her very proximal right upper extremity. Of note, patient has a history of lymphedema but she says that this is improved greatly over time and her arm is only mildly chronically swollen at this point. Allergies Allergy/AdvReac Type Severity Reaction Status Date / Time tetanus toxoid, adsorbed Allergy Severe Anaphylaxis Verified 11/21/19 10:58 vancomycin Allergy Severe throat Verified 11/21/19 10:58 swelling Penicillins Allergy Intermediate Rash Verified 11/21/19 10:58 Sulfa (Sulfonamide Allergy Intermediate RASH Verified 11/21/19 10:58 Antibiotics) erythromycin base Allergy Unknown Unknown Verified 11/21/19 10:58 Cygalir-Fjr-Qlf Reductase AdvReac Mild Leg cramps Verified 11/21/19 10:58 Inhibitor Home Medications Home Medications Medication Instructions Recorded Confirmed Type omeprazole 20 mg capsule,delayed 20 mg PO BID #180 cap 04/04/19 11/21/19 Rx release coenzyme Q10 10 mg capsule 10 mg PO TID 05/03/19 11/21/19 History fluticasone propionate 50 2 sprays INTNAS DAILY PRN 05/03/19 11/21/19 History mcg/actuation nasal spray,suspension magnesium chloride 71.5 mg 143 mg PO BID tab 05/03/19 11/21/19 History (magnesium chloride) tablet,delayed release triamcinolone acetonide 0.1 % 1 appln TOP BID 05/03/19 11/21/19 History topical cream docusate sodium 100 mg capsule 100 mg PO BID #180 cap 05/07/19 11/21/19 History ondansetron HCl 4 mg tablet 4 mg PO Q8H PRN #90 tab 09/14/19 11/21/19 Rx doxycycline hyclate 100 mg capsule 100 mg PO BID #20 cap 10/05/19 11/21/19 Rx alprazolam 1 mg tablet 1 mg PO BID PRN #180 tab 10/12/19 11/21/19 Rx amlodipine 5 mg tablet 5 mg PO DAILY #90 tab 11/08/19 11/21/19 Rx montelukast 10 mg tablet 10 mg PO DAILY #90 tab 11/08/19 11/21/19 Rx acetaminophen-codeine 1 - 2 tab PO Q6H PRN 11/21/19 11/21/19 History cyclobenzaprine 10 mg PO TID PRN 11/21/19 11/21/19 History diclofenac sodium 1 % TOPICAL QID PRN 11/21/19 11/21/19 History fluocinolone acetonide oil 1 drp OTIC (EAR) UD 11/21/19 11/21/19 History ipratropium-albuterol [Combivent 1 puff INHALATION QID 11/21/19 11/21/19 History Respimat] letrozole 2.5 mg PO DAILY 11/21/19 11/21/19 History meloxicam 15 mg PO DAILY PRN 11/21/19 11/21/19 History Past Med/Surg History Medical History Anxiety (Chronic) Breast cancer (Resolved 06/22/13) "Abnormal right breast mammogram Status post ultrasound-guided biopsy 06/22/2013 revealing moderately differentiated invasive ductal carcinoma Estrogen receptor positive, progesterone receptor positive HER-2/ismael negative Status post left breast biopsy 07/13/2013 that was benign Status post bilateral mastectomies with sentinel lymph node biopsy, placement of tissue expanders Stage pT3 pN2 M0 Status post completion of systemic chemotherapy comprised of Adriamycin and Cytoxan followed with Taxol Status post completion of radiation therapy 05/16/2014 received 6120 cGy Status post placement of permanent implants" Breast cancer Carcinoma of upper-outer quadrant of right female breast Dehydration (Acute) Gastroenteritis (Resolved) Headache (Acute) History of left knee replacement (Resolved) Hypertension (Chronic) Hypomagnesemia (Acute) Kidney stones (Resolved) Myalgia (Acute) Nausea, vomiting and diarrhea (Acute) Upper respiratory infection (Acute ~09/2014) Urinary tract infection (Resolved) Surgical History H/O bilateral mastectomy (Resolved) H/O colonoscopy H/O: hysterectomy (Resolved) History of bladder surgery S/P bilateral salpingo-oophorectomy S/P tonsillectomy (Resolved) S/P total abdominal hysterectomy S/P total knee arthroplasty Family History Other Breast cancer Denies family history of Ovarian cancer Colorectal cancer Social History Preferred Language: Belarusian Communication Ability: 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 Beliefs That Will Affect Care: None marital status: Current Living Situation: Spouse and Family current occupational status: retired Other Information That Helps Us Care for You: No Feels Safe at Home: Yes Safety Concerns: Feels Safe At This Time Smoking Status: Former smoker Tobacco Type: cigarettes ; Do You Dip or Chew Tobacco: No ; Second Hand Exposure: No ; Tobacco Cessation Education Requested by Patient: No Hx Alcohol Use: No Hx Substance Use: No Review of Systems Constitutional: + body aches and + fatigue; no fever, no chills, no weakness, no weight loss and no weight gain Eyes: as per Subjective / HPI Respiratory: no cough, no chest congestion, no dyspnea and no dyspnea on exertion Cardiovascular: no chest pain, no orthopnea, no palpitations, no lightheadedness and no edema Gastrointestinal: no abdominal pain, no nausea, no vomiting, no constipation and no diarrhea/loose stools Genitourinary: no dysuria, no difficulty urinating, no urinary frequency, no urinary hesitancy, no urinary urgency and no flank pain Musculoskeletal: no back pain, no neck pain, no joint pain, no stiffness and no myalgia Integumentary: + erythema; no rash Serous drainage as reported above Neurologic: no gait abnormality, no unsteadiness, no falls and no generalized weakness Physical Exam Constitutional: cooperative; no acute distress Neck: trachea midline, no thyromegaly Respiratory: normal respiratory effort Auscultation: lungs clear to auscultation bilaterally; no crackles, no rales, no rhonchi and no wheezes Cardiovascular: Rate/Rhythm: regular rate and regular rhythm Heart Sounds: normal S1, normal S2 and + murmur Chest (Breasts): Additional Comments: Right breast status post mastectomy. Old surgical wound noted. There is erythema around this area is localized. There is no obvious fluid collection to palpation. There is a small opening which is draining small amounts of serous fluid. Gastrointestinal (Abdomen): Inspection/Auscultation: abdomen normal to inspection Percussion/Palpation: abdomen soft; abdomen nontender, no guarding, abdomen not rigid and no hepatosplenomegaly Skin: no rashes, warm and dry Results & Data Vital Signs (Past 12 Hours) Vital Signs Temp Pulse Resp BP Pulse Ox 11/21/19 10:30 67 25 H 143/81 H 96 11/21/19 10:25 69 22 131/56 L 96 11/21/19 09:58 95 11/21/19 09:28 36.9 C 88 20 126/76 94 Laboratory Results WC is a 7.78, hemoglobin 10.7 hematocrit 31.4. Platelets are 277. Sodium 133. Potassium 3.3. Renal function is normal. Glucose 139. Magnesium 1.7. UA has 5-10 RBCs, 1-5 WBCs and 2+ protein. Diagnostic Findings XR chest 1V portable HISTORY: 79 years-old Female SEPSIS acute sepsis COMPARISON: Chest and rib radiographs 01/10/2019 TECHNIQUE: Portable AP view of the chest FINDINGS: Cardiac silhouette is mildly enlarged. Calcified plaque of the thoracic aortic arch. Unchanged mild right hemidiaphragmatic elevation. Emphysema. No pneumothorax, pleural effusion, overt pulmonary edema or airspace consolidation to suggest pneumonia. Surgical clips of the bilateral axilla. Degenerative changes of the shoulders and spine. IMPRESSION: No acute process. --- US extremity non-vascular ltd HISTORY: 79 years-old Female right chest wall, axilla for abscess acute right chest wall pain and soft tissue swelling with concern for abscess COMPARISON: Chest radiograph 11/21/2019 TECHNIQUE: Multiple real-time sonographic images of the right breast/chest wall distribution was obtained assessing grayscale appearance and color flow. FINDINGS: Reported postoperative changes of bilateral mastectomy. Large complex fluid collection of the right chest wall with multiple loculations measures up to 13.0 x 3.3 cm. No significant hypervascularity. Mild subcutaneous edema. IMPRESSION: Reported history of prior mastectomy. There is a large complex multiloculated collection with internal septations of the right chest wall measuring up to 13.0 cm. A complex seroma is the primary differential consideration. Correlate with clinical exam findings to exclude soft tissue infection. Code Status & VTE Plan VTE Prophylaxis Plan VTE Prophylaxis will be ordered: Yes PG Care Time/CCT Total # of Minutes Spent Total Time Spent with Patient: Total time spent is greater than 50% in coordination of care (as documented) at patient's floor/unit and/or counseling patient: Coding Level of Care Code 26464 Initial Inpt Care Lvl 3 Diagnoses Cellulitis of chest wall L03.313 Hypokalemia E87.6 Hypertension I10
[2019-11-21] MEDS ORDERED: MAGNESIUM OXIDE 400 MG TAB PO ONE (13:40)
[2019-11-21] MEDS ORDERED: ZOLPIDEM TARTRATE 5 MG TAB PO PRN (13:40)
[2019-11-21] MEDS ORDERED: POTASSIUM CHLORIDE 20 MEQ TABCR PO STA (13:40)
[2019-11-21] MEDS ORDERED: FLUTICASONE PROPIONATE NA SPR 16 GM BTL PRN (13:40)
[2019-11-21] MEDS ORDERED: MELOXICAM 7.5 MG TAB PO PRN (13:40)
[2019-11-21] MEDS ORDERED: CYCLOBENZAPRINE HCL 10 MG TAB PO PRN (13:44)
[2019-11-21] MEDS ORDERED: ONDANSETRON 4 MG OD TAB PO PRN (13:56)
[2019-11-21] MEDS ORDERED: NON-FORMULARY MEDICATION (Coenzyme Q10 10 MG) PO SCH (14:00)
[2019-11-21] MEDS ORDERED: IPRATROPIUM BROMIDE/ALBUTEROL respimat INH INH ONE (14:00)
--- NOTE | 2019-11-21 15:22 | Surgery Consultation ---
Date of Consultation November 21, 2019 Assessment & Plan (1) Cellulitis of chest wall: This is a 79yF with a PMH of bilateral mastectomy 6 years ago at [place] who presents to the [facility] ED on 11/21/19 with pain and soreness of her right chest along her mastectomy scar. Patient currently receiving IV abx for treatment. Site is draining serous fluid. We will plan to check on the patient tomorrow morning, if the area is not improved or worsening we may consider drainage in the OR tomorrow. Will make NPO at midnight tonight. We will continue to follow. Patient seen and examined with Dr. Faust. History of Present Illness Attending Physician: Ulises Zaidi DO History of Present Illness This is a 79yF with a PMH of bilateral mastectomy 6 years ago at [place] who presents to the [facility] ED on 11/21/19 with pain and soreness of her right chest along her mastectomy scar. The patient reports she has had issues with recurrent cellulitis of this area, 4 times in the past 6 months. Usually the swelling and redness starts by her lower arm and works its way up, but this time it started along her chest. Yesterday the patient reported to the cancer center and they prescribed her with a course of doxycycline. During the night last night patient states that the area started draining through her clothes which worried her and prompted her to come in today for further evaluation. She said the area has never drained before. In the ED patient's WBC 7.7 and she is afebrile. An US of the area was obtained that revealed a large complex multiloculated collection with internal septations of the right chest wall measuring up to 13.0 cm. She was admitted under medicine, started on IV abx, and ID and surgery consulted. Allergies Allergy/AdvReac Type Severity Reaction Status Date / Time tetanus toxoid, adsorbed Allergy Severe Anaphylaxis Verified 11/21/19 10:58 vancomycin Allergy Severe throat Verified 11/21/19 10:58 swelling Penicillins Allergy Intermediate Rash Verified 11/21/19 10:58 Sulfa (Sulfonamide Allergy Intermediate RASH Verified 11/21/19 10:58 Antibiotics) erythromycin base Allergy Unknown Unknown Verified 11/21/19 10:58 Tschxjk-Lrp-Zqb Reductase AdvReac Mild Leg cramps Verified 11/21/19 10:58 Inhibitor Home Medications Home Medications Medication Instructions Recorded Confirmed Type omeprazole 20 mg capsule,delayed 20 mg PO BID #180 cap 04/04/19 11/21/19 Rx release coenzyme Q10 10 mg capsule 10 mg PO TID 05/03/19 11/21/19 History fluticasone propionate 50 2 sprays INTNAS DAILY PRN 05/03/19 11/21/19 History mcg/actuation nasal spray,suspension magnesium chloride 71.5 mg 143 mg PO BID tab 05/03/19 11/21/19 History (magnesium chloride) tablet,delayed release triamcinolone acetonide 0.1 % 1 appln TOP BID 05/03/19 11/21/19 History topical cream docusate sodium 100 mg capsule 100 mg PO BID #180 cap 05/07/19 11/21/19 History ondansetron HCl 4 mg tablet 4 mg PO Q8H PRN #90 tab 09/14/19 11/21/19 Rx doxycycline hyclate 100 mg capsule 100 mg PO BID #20 cap 10/05/19 11/21/19 Rx alprazolam 1 mg tablet 1 mg PO BID PRN #180 tab 10/12/19 11/21/19 Rx amlodipine 5 mg tablet 5 mg PO DAILY #90 tab 11/08/19 11/21/19 Rx montelukast 10 mg tablet 10 mg PO DAILY #90 tab 11/08/19 11/21/19 Rx acetaminophen-codeine 1 - 2 tab PO Q6H PRN 11/21/19 11/21/19 History cyclobenzaprine 10 mg PO TID PRN 11/21/19 11/21/19 History diclofenac sodium 1 % TOPICAL QID PRN 11/21/19 11/21/19 History fluocinolone acetonide oil 1 drp OTIC (EAR) UD 11/21/19 11/21/19 History ipratropium-albuterol [Combivent 1 puff INHALATION QID 11/21/19 11/21/19 History Respimat] letrozole 2.5 mg PO DAILY 11/21/19 11/21/19 History meloxicam 15 mg PO DAILY PRN 11/21/19 11/21/19 History Patient History Medical History Anxiety (Chronic) Breast cancer (Resolved 06/22/13) "Abnormal right breast mammogram Status post ultrasound-guided biopsy 06/22/2013 revealing moderately differentiated invasive ductal carcinoma Estrogen receptor positive, progesterone receptor positive HER-2/ismael negative Status post left breast biopsy 07/13/2013 that was benign Status post bilateral mastectomies with sentinel lymph node biopsy, placement of tissue expanders Stage pT3 pN2 M0 Status post completion of systemic chemotherapy comprised of Adriamycin and Cytoxan followed with Taxol Status post completion of radiation therapy 05/16/2014 received 6120 cGy Status post placement of permanent implants" Breast cancer Carcinoma of upper-outer quadrant of right female breast Dehydration (Acute) Gastroenteritis (Resolved) Headache (Acute) History of left knee replacement (Resolved) Hypertension (Chronic) Hypomagnesemia (Acute) Kidney stones (Resolved) Myalgia (Acute) Nausea, vomiting and diarrhea (Acute) Upper respiratory infection (Acute ~09/2014) Urinary tract infection (Resolved) Surgical History H/O bilateral mastectomy (Resolved) H/O colonoscopy H/O: hysterectomy (Resolved) History of bladder surgery S/P bilateral salpingo-oophorectomy S/P tonsillectomy (Resolved) S/P total abdominal hysterectomy S/P total knee arthroplasty Family History Other Breast cancer Denies family history of Ovarian cancer Colorectal cancer Social History Preferred Language: Czech Communication Ability: Effective 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 Beliefs That Will Affect Care: None marital status: Current Living Situation: Spouse and Family current occupational status: retired Other Information That Helps Us Care for You: No Feels Safe at Home: Yes Safety Concerns: Feels Safe At This Time Smoking Status: Former smoker Tobacco Type: cigarettes ; Do You Dip or Chew Tobacco: No ; Second Hand Exposure: No ; Tobacco Cessation Education Requested by Patient: No Hx Alcohol Use: No Hx Substance Use: No Review of Systems Integumentary: redness & pain of right chest with + drainage Physical Exam Physical Exam: awake/alert Constitutional: well developed and well nourished; no acute distress Respiratory: normal respiratory effort Chest (Breasts): Additional Comments: h/o bilateral mastectomy, ttp over R mastectomy scar w/ fluctuation. serous output on 4x4 gauze Results & Data Vital Signs (Past 12 Hours) Vital Signs Temp Pulse Resp BP BP Pulse Ox 11/21/19 13:15 36.9 C 16 152/88 H 96 11/21/19 12:15 68 20 142/74 H 95 11/21/19 12:00 68 18 151/79 H 96 11/21/19 11:45 68 22 135/91 95 11/21/19 10:30 67 25 H 143/81 H 96 11/21/19 10:25 69 22 131/56 L 96 11/21/19 09:58 95 11/21/19 09:28 36.9 C 88 20 126/76 94 US extremity non-vascular ltd HISTORY: 79 years-old Female right chest wall, axilla for abscess acute right chest wall pain and soft tissue swelling with concern for abscess COMPARISON: Chest radiograph 11/21/2019 TECHNIQUE: Multiple real-time sonographic images of the right breast/chest wall distribution was obtained assessing grayscale appearance and color flow. FINDINGS: Reported postoperative changes of bilateral mastectomy. Large complex fluid collection of the right chest wall with multiple loculations measures up to 13.0 x 3.3 cm. No significant hypervascularity. Mild subcutaneous edema. IMPRESSION: Reported history of prior mastectomy. There is a large complex multiloculated collection with internal septations of the right chest wall measuring up to 13.0 cm. A complex seroma is the primary differential consideration. Correlate with clinical exam findings to exclude soft tissue infection. ACT 112: Negative or not required by law. The above report was generated using voice recognition software. It may contain grammatical, syntax or spelling errors. Electronically signed by: Zeeshan Birmingham M.D. 11/21/2019 11:16 AM PG Care Time/CCT Total # of Minutes Spent Total Time Spent with Patient: Total time spent is greater than 50% in coordination of care (as documented) at patient's floor/unit and/or counseling patient: Coding Level of Care Code 06196 Initial Inpt Care Lvl 1 Diagnoses Cellulitis of chest wall L03.313
[2019-11-21] MEDS: IPRATROPIUM BROMIDE/ALBUTEROL respimat INH INH SCH ×2 (17:07→19:41)
--- NOTE | 2019-11-21 18:15 | Emergency Department Note ---
Entered by Jerel Dotson acting as a scribe for History of Present Illness General Chief complaint: Infection Stated complaint: CELLULITIS RT ARM, OPEN AND DRAINING Time Seen by Provider: 11/21/19 09:32 Source: patient Limitations: no limitations History of Present Illness Onset (ago): day(s) 5 Location: right (breast) Severity: similar to prior episodes Pain Consistency: + constant Quality: + other (feeling hot, area is damp, fluid draining) Associated symptoms: + denies other symptoms (diarrhea) and + nausea/vomiting (nausea. No vomiting) Treatments prior to arrival: other (Doxycycline) The patient is a 79 year old female who presents to the Emergency Room with complaints of constant and worsening cellulitis on her right breast starting 5 days ago. The patient states she has a history of breast cancer. She states she had a double mastectomy and then had implants put in. She states she would frequently get infections, and so she got the implants removed. She states she keeps getting an infection on her right breast. She states she saw Cinthya Cruz at the cancer center. She notes Cinthya Cruz gave her doxycycline, and the patient states she started taking doxycycline yesterday. She states her right arm is more swollen. She states the area is more red this morning and there is liquid coming from the incision site today. She states her right breast area is damp now. She states she has been feeling hot. The patient states she has been feeling nauseous. She denies having diarrhea and vomiting. She states her PCP is Dr. Byers. She states she recently had surgery on her right arm about [address] Vega. Home Medications Home Medications Medication Instructions Recorded Confirmed Type omeprazole 20 mg capsule,delayed 20 mg PO BID #180 cap 04/04/19 11/21/19 Rx release coenzyme Q10 10 mg capsule 10 mg PO TID 05/03/19 11/21/19 History fluticasone propionate 50 2 sprays INTNAS DAILY PRN 05/03/19 11/21/19 History mcg/actuation nasal spray,suspension magnesium chloride 71.5 mg 143 mg PO BID tab 05/03/19 11/21/19 History (magnesium chloride) tablet,delayed release triamcinolone acetonide 0.1 % 1 appln TOP BID 05/03/19 11/21/19 History topical cream docusate sodium 100 mg capsule 100 mg PO BID #180 cap 05/07/19 11/21/19 History ondansetron HCl 4 mg tablet 4 mg PO Q8H PRN #90 tab 09/14/19 11/21/19 Rx doxycycline hyclate 100 mg capsule 100 mg PO BID #20 cap 10/05/19 11/21/19 Rx alprazolam 1 mg tablet 1 mg PO BID PRN #180 tab 10/12/19 11/21/19 Rx amlodipine 5 mg tablet 5 mg PO DAILY #90 tab 11/08/19 11/21/19 Rx montelukast 10 mg tablet 10 mg PO DAILY #90 tab 11/08/19 11/21/19 Rx acetaminophen-codeine 1 - 2 tab PO Q6H PRN 11/21/19 11/21/19 History cyclobenzaprine 10 mg PO TID PRN 11/21/19 11/21/19 History diclofenac sodium 1 % TOPICAL QID PRN 11/21/19 11/21/19 History fluocinolone acetonide oil 1 drp OTIC (EAR) UD 11/21/19 11/21/19 History ipratropium-albuterol [Combivent 1 puff INHALATION QID 11/21/19 11/21/19 History Respimat] letrozole 2.5 mg PO DAILY 11/21/19 11/21/19 History meloxicam 15 mg PO DAILY PRN 11/21/19 11/21/19 History Allergies Allergy/AdvReac Type Severity Reaction Status Date / Time tetanus toxoid, adsorbed Allergy Severe Anaphylaxis Verified 11/21/19 10:58 vancomycin Allergy Severe throat Verified 11/21/19 10:58 swelling Penicillins Allergy Intermediate Rash Verified 11/21/19 10:58 Sulfa (Sulfonamide Allergy Intermediate RASH Verified 11/21/19 10:58 Antibiotics) erythromycin base Allergy Unknown Unknown Verified 11/21/19 10:58 Ibyofaf-Jhr-Ajn Reductase AdvReac Mild Leg cramps Verified 11/21/19 10:58 Inhibitor Past Med/Surg History Medical History Anxiety (Chronic) Breast cancer (Resolved 06/22/13) "Abnormal right breast mammogram Status post ultrasound-guided biopsy 06/22/2013 revealing moderately differentiated invasive ductal carcinoma Estrogen receptor positive, progesterone receptor positive HER-2/ismael negative Status post left breast biopsy 07/13/2013 that was benign Status post bilateral mastectomies with sentinel lymph node biopsy, placement of tissue expanders Stage pT3 pN2 M0 Status post completion of systemic chemotherapy comprised of Adriamycin and Cytoxan followed with Taxol Status post completion of radiation therapy 05/16/2014 received 6120 cGy Status post placement of permanent implants" Breast cancer Carcinoma of upper-outer quadrant of right female breast Dehydration (Acute) Gastroenteritis (Resolved) Headache (Acute) History of left knee replacement (Resolved) Hypertension (Chronic) Hypomagnesemia (Acute) Kidney stones (Resolved) Myalgia (Acute) Nausea, vomiting and diarrhea (Acute) Upper respiratory infection (Acute ~09/2014) Urinary tract infection (Resolved) Surgical History H/O bilateral mastectomy (Resolved) H/O colonoscopy H/O: hysterectomy (Resolved) History of bladder surgery S/P bilateral salpingo-oophorectomy S/P tonsillectomy (Resolved) S/P total abdominal hysterectomy S/P total knee arthroplasty Family History Other Breast cancer Denies family history of Ovarian cancer Colorectal cancer Social History Preferred Language: Thai Communication Ability: Effective 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 and A total of 10 systems reviewed and were otherwise negative Physical Exam Vital Signs Vital Signs - 24 hr 11/21/19 09:28 11/21/19 09:58 11/21/19 10:25 Temperature 36.9 C Temperature Source Oral Pulse Rate 88 69 Pulse Rate from SpO2 Sensor 69 Respiratory Rate 20 22 Blood Pressure 126/76 131/56 L Blood Pressure Mean 92 73 Pulse Oximetry 94 95 96 Oxygen Delivery Method Room Air Room Air Sepsis Recent Fever Within 48 Hours Yes Sepsis New/Unexplained Change in Mental Status No Sepsis Action Taken by Nursing No Action Required 11/21/19 10:30 Temperature Temperature Source Pulse Rate 67 Pulse Rate from SpO2 Sensor 67 Respiratory Rate 25 H Blood Pressure 143/81 H Blood Pressure Mean 95 Pulse Oximetry 96 Oxygen Delivery Method Sepsis Recent Fever Within 48 Hours Sepsis New/Unexplained Change in Mental Status Sepsis Action Taken by Nursing GENERAL: Patient is in no acute distress. HEENT: No acute trauma, normocephalic atraumatic, mucous membranes moist, no nasal congestion, no scleral icterus. NECK: No stridor, no adenopathy, no meningismus, trachea is midline. CHEST: Yellow liquidy drainage from an old incision from the right breast/chest wall. There is surrounding erythema and warmth. The area is tender to touch. Culture obtained. LUNGS: Clear to auscultation bilaterally, no wheeze, no rhonchi, breath sounds equal. HEART: Without murmurs gallops or rubs, regular rate and rhythm. ABDOMEN: Soft, nontender, bowel sounds positive, no hernias, no peritonitis. EXTREMITIES: No edema to the lower extremities. There is some edema to the right upper extremity with some mild forearm erythema. NEUROLOGIC: Oriented x 3, no acute motor or sensory deficits, no focal weakness. SKIN: No rash, no jaundice, no diaphoresis. Course Course 09: The patient was evaluated in room B9, and a complete history and physical examination were performed. 1055: I discussed the patient's case with Dr. Zaidi - [facility] Hospitalist. He will evaluate the patient for further management. 1128: I updated the patient on her labs and imaging results. I recommended admission, and she agrees with the plan. Administered Medications Albuterol (Combivent Respimat) 1 puffs INH QID [facility] Stop: 12/21/19 16:59 Last Admin: 11/21/19 17:07 Dose: 1 puffs Documented by: [id number] Miscellaneous (Order Awaiting Action) 1 ea N/A QS DEJA Stop: 12/21/19 15:59 Last Admin: 11/21/19 15:44 Dose: Not Given Documented by: [id number] Discontinued Medications Albuterol (Combivent Respimat) 1 puffs INH ONE ONE Stop: 11/21/19 14:01 Last Admin: 11/21/19 14:29 Dose: 1 puffs Documented by: [id number] Sodium Chloride (Nss) 500 mls @ 999 mls/hr IV .Q31M ONE Stop: 11/21/19 10:14 Last Infusion: 11/21/19 11:01 Dose: 0 mls/hr Documented by: [id number] Admin: 11/21/19 10:25 Dose: 999 mls/hr Documented by: [id number] Daptomycin 400 mg/ Syringe 8 mls @ 4 mls/min IV NOW ONE; Protocol Stop: 11/21/19 09:45 Last Admin: 11/21/19 10:26 Dose: 4 mls/min Documented by: [id number] Cefepime HCl (Maxipime) 2,000 mg in 20 mls @ 5 mls/min IV NOW STA; Protocol Stop: 11/21/19 09:47 Last Admin: 11/21/19 10:25 Dose: 5 mls/min Documented by: [id number] Magnesium Sulfate/Dextrose (Magnesium Sulfate / D5w) 1 gm in 100 mls @ 100 mls/hr IV ONE ONE Stop: 11/21/19 11:46 Last Infusion: 11/21/19 12:38 Dose: 0 mls/hr Documented by: [id number] Admin: 11/21/19 11:30 Dose: 100 mls/hr Documented by: [id number] Magnesium Oxide (Mag-Ox) 400 mg PO ONCE ONE Stop: 11/21/19 13:41 Last Admin: 11/21/19 14:26 Dose: 400 mg Documented by: [id number] Potassium Chloride (Klor-Con M20) 40 meq PO NOW STA Stop: 11/21/19 13:41 Last Admin: 11/21/19 14:26 Dose: 40 meq Documented by: [id number] Medical Decision Making Differential Diagnosis Differential Diagnosis includes but is not limited to cellulitis, abscess, failed outpatient treatment, sepsis, bacteremia, pneumonia, UTI, dehydration, and electrolyte or metabolic abnormality. Medical Records Attestation: I reviewed the patient's medical records. Home Medications Current Medication List: was personally reviewed by me Laboratory Data Attestation: I reviewed the patient's lab results. Result diagrams: 11/21/19 09:59 11/21/19 09:59 Lab Results 11/21/19 11/21/19 11/21/19 Range/Units 09:59 09:59 09:59 WBC 7.78 (4.8-10.8) K/uL RBC 3.62 L (4.2-5.4) M/uL Hgb 10.7 L (12.0-16.0) g/dL Hct 31.4 L (37-47) % MCV 86.7 (80-100) fL MCH 29.6 (25-34) pg MCHC 34.1 (32-36) g/dL RDW Std Deviation 42.7 (36.4-46.3) fL RDW Coeff of [place] 13.3 (11.5-14.5) % Plt Count 277 (130-400) K/uL MPV 8.5 (7.4-10.4) fL Immature Gran % (Auto) 0.3 % Neut % (Auto) 81.1 % Lymph % (Auto) 8.9 % [place] % (Auto) 8.7 % Eos % (Auto) 0.6 % Baso % (Auto) 0.4 % Immature Gran # (Auto) 0.02 (0.00-0.02) K/uL Neut # (Auto) 6.31 (1.4-6.5) K/uL Lymph # (Auto) 0.69 L (1.2-3.4) K/uL [place] # (Auto) 0.68 H (0.11-0.59) K/uL Eos # (Auto) 0.05 (0-0.5) K/uL Baso # (Auto) 0.03 (0-0.2) K/uL PT 9.8 (9.0-12.0) Seconds INR 1.0 (0.9-1.1) APTT 25.3 (21.0-31.0) Seconds PTT Ratio 0.9 Sodium 133 L (136-145) mmol/L Potassium 3.3 L (3.5-5.1) mmol/L Chloride 102 (98-107) mmol/L Carbon Dioxide 27 (21-32) mmol/L Anion Gap 4.0 (3-11) BUN 13 (7-18) mg/dl Creatinine 0.91 (0.6-1.2) mg/dl Est Cr Clr Drug Dosing 45.2 ml/min Est GFR ( Amer) 70.0 Est GFR (Non-Af Amer) 60.4 BUN/Creatinine Ratio 14.8 (10-20) Glucose 139 H (70-99) mg/dl Lactate (0.4-2.0) mmol/L Calcium 9.5 (8.5-10.1) mg/dl Magnesium 1.7 L (1.8-2.4) mg/dl Total Bilirubin 0.5 (0.2-1) mg/dl AST 9 L (15-37) U/L ALT 15 (12-78) U/L Alkaline Phosphatase 75 (45-117) U/L Total Protein 7.0 (6.4-8.2) gm/dl Albumin 2.7 L (3.4-5.0) gm/dl Globulin 4.3 H (2.5-4.0) gm/dl Albumin/Globulin Ratio 0.6 L (0.9-2) Procalcitonin (0-0.5) ng/ml Urine Color Urine Appearance (Clear) Urine pH (4.5-7.5) Ur Specific Kimberly (1.000-1.030) Urine Protein (Negative) Urine Glucose (UA) (Negative) Urine Ketones (Negative) Urine Blood (Negative) Urine Nitrite (Negative) Urine Bilirubin (Negative) Urine Urobilinogen (Negative) Ur Leukocyte Esterase (Negative) Urine WBC (Auto) (0-5) /hpf Urine RBC (Auto) (0-4) /hpf U Hyaline Cast (Auto) (0-5) /lpf U Epithel Cells (Auto) (0-5) /lpf Urine Bacteria (Auto) (Negative) 11/21/19 11/21/19 11/21/19 Range/Units 09:59 09:59 10:46 WBC (4.8-10.8) K/uL RBC (4.2-5.4) M/uL Hgb (12.0-16.0) g/dL Hct (37-47) % MCV (80-100) fL MCH (25-34) pg MCHC (32-36) g/dL RDW Std Deviation (36.4-46.3) fL RDW Coeff of [place] (11.5-14.5) % Plt Count (130-400) K/uL MPV (7.4-10.4) fL Immature Gran % (Auto) % Neut % (Auto) % Lymph % (Auto) % [place] % (Auto) % Eos % (Auto) % Baso % (Auto) % Immature Gran # (Auto) (0.00-0.02) K/uL Neut # (Auto) (1.4-6.5) K/uL Lymph # (Auto) (1.2-3.4) K/uL [place] # (Auto) (0.11-0.59) K/uL Eos # (Auto) (0-0.5) K/uL Baso # (Auto) (0-0.2) K/uL PT (9.0-12.0) Seconds INR (0.9-1.1) APTT (21.0-31.0) Seconds PTT Ratio Sodium (136-145) mmol/L Potassium (3.5-5.1) mmol/L Chloride (98-107) mmol/L Carbon Dioxide (21-32) mmol/L Anion Gap (3-11) BUN (7-18) mg/dl Creatinine (0.6-1.2) mg/dl Est Cr Clr Drug Dosing ml/min Est GFR ( Amer) Est GFR (Non-Af Amer) BUN/Creatinine Ratio (10-20) Glucose (70-99) mg/dl Lactate 1.2 (0.4-2.0) mmol/L Calcium (8.5-10.1) mg/dl Magnesium (1.8-2.4) mg/dl Total Bilirubin (0.2-1) mg/dl AST (15-37) U/L ALT (12-78) U/L Alkaline Phosphatase (45-117) U/L Total Protein (6.4-8.2) gm/dl Albumin (3.4-5.0) gm/dl Globulin (2.5-4.0) gm/dl Albumin/Globulin Ratio (0.9-2) Procalcitonin 0.25 (0-0.5) ng/ml Urine Color Yellow Urine Appearance Clear (Clear) Urine pH 6.5 (4.5-7.5) Ur Specific Kimberly 1.020 (1.000-1.030) Urine Protein 2+ H (Negative) Urine Glucose (UA) Negative (Negative) Urine Ketones Negative (Negative) Urine Blood Trace H (Negative) Urine Nitrite Negative (Negative) Urine Bilirubin Negative (Negative) Urine Urobilinogen Negative (Negative) Ur Leukocyte Esterase Negative (Negative) Urine WBC (Auto) 1-5 (0-5) /hpf Urine RBC (Auto) 5-10 H (0-4) /hpf U Hyaline Cast (Auto) 1-5 (0-5) /lpf U Epithel Cells (Auto) 10-20 H (0-5) /lpf Urine Bacteria (Auto) Negative (Negative) Imaging Data Radiologist's Impression: Radiology results as stated below per my review and the radiologist's interpretation: XR chest 1V portable HISTORY: 79 years-old Female SEPSIS acute sepsis COMPARISON: Chest and rib radiographs 01/10/2019 TECHNIQUE: Portable AP view of the chest FINDINGS: Cardiac silhouette is mildly enlarged. Calcified plaque of the thoracic aortic arch. Unchanged mild right hemidiaphragmatic elevation. Emphysema. No pneumothorax, pleural effusion, overt pulmonary edema or airspace consolidation to suggest pneumonia. Surgical clips of the bilateral axilla. Degenerative changes of the shoulders and spine. IMPRESSION: No acute process. ACT 112: Negative or not required by law. The above report was generated using voice recognition software. It may contain grammatical, syntax or spelling errors. Electronically signed by: Zeeshan Birmingham M.D. 11/21/2019 10:16 AM extremity non-vascular ltd HISTORY: 79 years-old Female right chest wall, axilla for abscess acute right chest wall pain and soft tissue swelling with concern for abscess COMPARISON: Chest radiograph 11/21/2019 TECHNIQUE: Multiple real-time sonographic images of the right breast/chest wall distribution was obtained assessing grayscale appearance and color flow. FINDINGS: Reported postoperative changes of bilateral mastectomy. Large complex fluid collection of the right chest wall with multiple loculations measures up to 13.0 x 3.3 cm. No significant hypervascularity. Mild subcutaneous edema. IMPRESSION: Reported history of prior mastectomy. There is a large complex multiloculated collection with internal septations of the right chest wall measuring up to 13.0 cm. A complex seroma is the primary differential consideration. Correlate with clinical exam findings to exclude soft tissue infection. ACT 112: Negative or not required by law. The above report was generated using voice recognition software. It may contain grammatical, syntax or spelling errors. Electronically signed by: Zeeshan Birmingham M.D. 11/21/2019 11:16 AM Blood Pressure Blood Pressure Findings: Elevated blood pressure Blood Pressure Disposition: further management by hospitalist GUDELIA Narrative There is no leukocytosis. The patient does have a mild anemia with a hemoglobin of 10.7. No coagulopathy. Magnesium was somewhat low at 1.7, no kidney failure. No worrisome liver enzyme elevation. Lactic acid level was not elevated making sepsis less likely. Urinalysis did not show any obvious infection. Chest wall ultrasound did show a fluid collection. Chest film did not show pneumonia or CHF. The patient presents with a worsening chest wall and arm cellulitis. She is already on oral doxycycline. She has a history of similar infections. The patient was given IV daptomycin, IV cefepime, IV saline and IV magnesium, she is currently resting comfortably. I spoke to the patient about her findings. Given the worsening cellulitis despite the outpatient antibiotics, hospitalization is warranted. I did speak with case management, the on-call hospitalist was consulted. Impression & Plan Cellulitis of chest wall, Hypomagnesemia, Failure of outpatient treatment, History of breast cancer Discharge Plan Visit Data *Final* Discharge Date/Time: 11/21/19 12:36 Chief Complaint: Infection Stated Complaint: CELLULITIS RT ARM, OPEN AND DRAINING ED Provider: Rashid Banda Discharge Problem: Cellulitis of chest wall, Hypomagnesemia, Failure of outpatient treatment, History of breast cancer Patient Disposition: Admitted As Inpatient Discharge Instructions Interventions: ED Discharge Assessment Last Done: 11/21/19 12:36 The scribe's documentation has been prepared under my direction and personally reviewed by me in its entirety. I confirm that the note above accurately reflects all work, treatment, procedures, and medical decision making performed by me.
[2019-11-21] MEDS: MAGNESIUM CHLORIDE 64MG DELAYED REL TAB PO SCH (19:40)
[2019-11-21] MEDS: ACETAMINOPHEN W/CODEINE #3 1 TAB PO PRN (19:40)
[2019-11-21] MEDS: DOCUSATE SODIUM 100 MG CAP PO SCH (19:40)
[2019-11-21] MEDS: PANTOprazole 40 MG TAB PO SCH (19:41)
[2019-11-21] MEDS: ALPRAZolam 0.5 MG TABLET PO PRN (19:45)
[2019-11-21] MEDS ORDERED: ENOXAPARIN INJ 40 MG/0.4 ML SYR SQ SCH (21:00)
[2019-11-22 05:45] LABS: Basophils # (auto) 0.03 K/uL (0-0.2); Basophils % (auto) 0.5 %; Eosinophils # (auto) 0.08 K/uL (0-0.5); Eosinophils % (auto) 1.3 %; Hematocrit (blood only) 30.4 % (37-47); Hemoglobin 10.1 g/dL (12.0-16.0); Immature Granulocytes # (auto) 0.01 K/uL (0.00-0.02); Immature Granulocytes % (auto) 0.2 %; Lymphocytes # (auto) 1.25 K/uL (1.2-3.4); Mean Corpuscular Hemoglobin 29.1 pg (25-34); Mean Corpuscular Hgb Conc 33.2 g/dL (32-36); Mean Corpuscular Volume 87.6 fL (80-100); Mean Platelet Volume 8.7 fL (7.4-10.4); Monocytes # (auto) 0.55 K/uL (0.11-0.59); Monocytes % (auto) 8.8 %; Neutrophils # (auto) 4.33 K/uL (1.4-6.5); Neutrophils % (auto) 69.2 %; Platelet Count 268 K/uL (130-400); RDW Coefficient of Variation 13.6 % (11.5-14.5); RDW Standard Deviation 43.3 fL (36.4-46.3); Red Blood Count 3.47 M/uL (4.2-5.4); White Blood Count 6.25 K/uL (4.8-10.8)
--- NOTE | 2019-11-22 06:06 | Surgery Progress Note ---
Date of Service November 22, 2019 Assessment & Plan (1) Cellulitis of chest wall: Discussed with the patient will take her to the OR later this morning incision and drainage this multiloculated fluid collection likely packet obtain cultures and probably place a VAC system tomorrow This was discussed with the patient and she is agreeable to it She has been n.p.o. Present on Admission?: Yes Subjective Had a good night still has some discomfort on right chest wall Physical Exam Physical Exam: Area of fluctuance anterior chest wall site of previous mastectomy incision very tender abscess fairly unchanged with continued some serous drainage Results & Data Vital Signs (Past 12 Hours) Vital Signs Temp Pulse Resp BP Pulse Ox 11/21/19 23:05 36.8 C 67 18 115/71 93 PG Care Time/CCT Total # of Minutes Spent Total Time Spent with Patient: Total time spent is greater than 50% in coordination of care (as documented) at patient's floor/unit and/or counseling patient: Coding Level of Care Code 34077 Subseq Hosp Care Lvl 3 Diagnoses Cellulitis of chest wall L03.313
[2019-11-22 06:18] LABS: BUN Creatinine Ratio 15.1 (10-20); Calcium 9.4 mg/dl (8.5-10.1); Creatinine Clr Calc Pharmacy 47.8 ml/min; Est GFR (Non-African American) 64.7; Magnesium 1.9 mg/dl (1.8-2.4); Potassium 3.8 mmol/L (3.5-5.1)
[2019-11-22] MEDS: DOCUSATE SODIUM 100 MG CAP PO SCH ×2 (08:04→21:27)
[2019-11-22] MEDS: PANTOprazole 40 MG TAB PO SCH ×2 (08:05→21:29)
[2019-11-22] MEDS: IPRATROPIUM BROMIDE/ALBUTEROL respimat INH INH SCH ×4 (08:05→21:27)
[2019-11-22] MEDS: LETROZOLE 2.5 MG TAB PO SCH (08:05)
[2019-11-22] MEDS: MAGNESIUM CHLORIDE 64MG DELAYED REL TAB PO SCH ×2 (08:05→21:27)
[2019-11-22] MEDS: MONTELUKAST SODIUM 10 MG TABLET PO SCH (08:05)
[2019-11-22] MEDS: AMLODIPINE BESYLATE 5 MG TAB PO SCH (08:05)
[2019-11-22] MEDS: DAPTOmycin 200 MG in SYRINGE 0 ML IV SCH (09:27)
[2019-11-22] MEDS: CEFEPIME 2,000 MG in SYRINGE 7.5 ML IV SCH (09:27)
[2019-11-22] MEDS ORDERED: MIDAZOLAM HCL 1 MG/ML 2ML VIAL ONE (11:03)
[2019-11-22] MEDS ORDERED: fentaNYL citrate 100 MCG/2 ML VIAL ONE (11:03)
[2019-11-22] MEDS: ONDANSETRON INJ 2 MG/ML 2 ML VIAL IV PRN (11:12)
--- NOTE | 2019-11-22 11:12 | Hospitalist Progress Note ---
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: - This is recurrent and involves the R upper chest wall as well - S/P I&D on 11/22 - Cx obtained during surgery - Cx from drainage on admission with no growth - surgical cx with rare gram positive cocci - await further culture - Will continue Cefepime and Dapto currently - jt can de-escalate and can get ID input - Gen Surg following - appreciate surgical management (2) Hypertension: - Continue Norvasc 5 mg daily (3) Breast cancer: - S/P Mastectomy - Continue Femara 2.5 mg daily Disposition: Await Cx and antibiotic adjustment/surgical management - home on D/C Admission and Anticipated Discharge Date Admission Date: November 21, 2019 Supervising Physician Co-Signing Physician Notes Attending Attestation - Chart reviewed in detail, care plan d/w CHERRY Gallo. I agree w/ the car components of her documentation. Right chest wall cellulitis + abscess vs seroma -- s/p I/D by Dr Faust. Await culture. Continue IV abx. Oswald Mcelroy MD Subjective Reports currently not having pain but thinks the pain medication from over the night is still working. She is due for I&D this afternoon. She feels well overall. Has some nausea this morning which is normal for her and she takes Zofran daily for this. Review of Systems Constitutional: no fever and no chills Respiratory: no cough and no dyspnea Cardiovascular: no chest pain, no palpitations and no lightheadedness Gastrointestinal: + nausea; no abdominal pain, no vomiting, no constipation and no diarrhea/loose stools Genitourinary: no dysuria Integumentary: + erythema and + skin swelling (chronic - RUE edema) Physical Exam Constitutional: WD/WN, vitals as above Eyes: + anicteric sclerae ENMT: Ears: no hearing impairment Neck: trachea midline Respiratory: normal respiratory effort, lungs clear to auscultation Cardiovascular: RRR, no murmur, no edema Chest (Breasts): Additional Comments: Dressing C/D/I placed to anterior axillary line; mild purple/red coloration around, did not remove dressing at thi s time Gastrointestinal (Abdomen): Inspection/Auscultation: normal bowel sounds Percussion/Palpation: abdomen soft; abdomen nontender Musculoskeletal: no cyanosis or clubbing, extremities motor strength 5/5 Skin: no rashes, warm and dry (other then mentioned in chest) Neurologic: moves all extremities Psychiatric: A+Ox3, euthymic affect Results & Data ([facility]) Vital Signs (Past 12 Hours) Vital Signs Temp Pulse Resp BP Pulse Ox 11/22/19 07:20 37.0 C 81 16 152/85 H 92 PG Care Time/CCT Total # of Minutes Spent Total Time Spent with Patient: Total time spent is greater than 50% in coordination of care (as documented) at patient's floor/unit and/or counseling patient: Coding Level of Care Code 24440 Subseq Hosp Care Lvl 3 Diagnoses 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
[2019-11-22] MEDS ORDERED: BUPIVACAINE 0.5 % 5 MG/1 ML MPF 30ML VIAL ONE (11:25)
--- NOTE | 2019-11-22 11:30 | Anesthesiology Consultation ---
Date of Service November 22, 2019 Assessment & Plan Chart Review Chart Review: Acceptable Risk for Surgery and Patient NOT seen in Pre Admission Testing Consults Requested none ASA ASA4 Proposed Anesthesia Anesthesia Type: General History Surgery Operation Date: 11/22/19 11:15 Proposed Procedures p Incision and Drainage Chest Wall - Giorgio Faust MD Height/Weight Height: 5 ft 2 in Weight: 65.2 kg Allergies Allergy/AdvReac Type Severity Reaction Status Date / Time tetanus toxoid, adsorbed Allergy Severe Anaphylaxis Verified 11/21/19 10:58 vancomycin Allergy Severe throat Verified 11/21/19 10:58 swelling Penicillins Allergy Intermediate Rash Verified 11/21/19 10:58 Sulfa (Sulfonamide Allergy Intermediate RASH Verified 11/21/19 10:58 Antibiotics) erythromycin base Allergy Unknown Unknown Verified 11/21/19 10:58 [id number]-Iuo Reductase AdvReac Mild Leg cramps Verified 11/21/19 10:58 Inhibitor Medications Home Medications Medication Instructions Recorded Confirmed Last Taken omeprazole 20 mg capsule,delayed 20 mg PO BID #180 cap 04/04/19 11/21/19 Unknown release coenzyme Q10 10 mg capsule 10 mg PO TID 05/03/19 11/21/19 Unknown fluticasone propionate 50 2 sprays INTNAS DAILY PRN 05/03/19 11/21/19 Unknown mcg/actuation nasal spray,suspension magnesium chloride 71.5 mg 143 mg PO BID tab 05/03/19 11/21/19 Unknown (magnesium chloride) tablet,delayed release triamcinolone acetonide 0.1 % 1 appln TOP BID 05/03/19 11/21/19 Unknown topical cream docusate sodium 100 mg capsule 100 mg PO BID #180 cap 05/07/19 11/21/19 Unknown ondansetron HCl 4 mg tablet 4 mg PO Q8H PRN #90 tab 09/14/19 11/21/19 Unknown doxycycline hyclate 100 mg capsule 100 mg PO BID #20 cap 10/05/19 11/21/19 11/21/19 alprazolam 1 mg tablet 1 mg PO BID PRN #180 tab 10/12/19 11/21/19 11/21/19 amlodipine 5 mg tablet 5 mg PO DAILY #90 tab 11/08/19 11/21/19 Unknown montelukast 10 mg tablet 10 mg PO DAILY #90 tab 11/08/19 11/21/19 Unknown acetaminophen-codeine 1 - 2 tab PO Q6H PRN 11/21/19 11/21/19 Unknown cyclobenzaprine 10 mg PO TID PRN 11/21/19 11/21/19 Unknown diclofenac sodium 1 % TOPICAL QID PRN 11/21/19 11/21/19 Unknown fluocinolone acetonide oil 1 drp OTIC (EAR) UD 11/21/19 11/21/19 Unknown ipratropium-albuterol [Combivent 1 puff INHALATION QID 11/21/19 11/21/19 Unknown Respimat] letrozole 2.5 mg PO DAILY 11/21/19 11/21/19 Unknown meloxicam 15 mg PO DAILY PRN 11/21/19 11/21/19 Unknown Active Medications Generic Name Dose Route Start Last Admin Trade Name Freq PRN Reason Stop Dose Admin Acetaminophen/Codeine Phosphate 1 - 2 tab 11/21/19 13:40 11/21/19 19:40 Tylenol W/Codeine #3 PO 12/21/19 13:39 2 tab Q6H PRN Administration Pain Albuterol 1 puffs 11/21/19 17:00 11/22/19 08:05 Combivent Respimat INH 12/21/19 16:59 Not Given QID DEJA Alprazolam 1 mg 11/21/19 13:40 11/21/19 19:45 Xanax PO 12/21/19 13:39 0.5 mg BID PRN Administration anxiety Amlodipine Besylate 5 mg 11/22/19 09:00 11/22/19 08:05 Norvasc PO 12/22/19 08:59 Not Given DAILY [facility] Docusate Sodium 100 mg 11/21/19 21:00 11/22/19 08:04 Colace PO 12/21/19 20:59 Not Given BID [facility] Enoxaparin Sodium 40 mg 11/21/19 21:00 11/21/19 19:36 Lovenox SQ 12/21/19 20:59 Not Given Q24H DEJA Cefepime HCl 2,000 mg/ Syringe 20 mls @ 5.5 mls/min 11/22/19 10:00 11/22/19 09:27 IV 11/29/19 09:59 5.5 mls/min Q24H DEJA Administration Protocol Daptomycin 200 mg/ Syringe 4 mls @ 2 mls/min 11/22/19 10:00 11/22/19 09:27 IV 11/29/19 09:59 2 mls/min Q24H DEJA Administration Protocol Letrozole 2.5 mg 11/22/19 09:00 11/22/19 08:05 Femara PO 12/22/19 08:59 Not Given DAILY DEJA Magnesium Chloride 128 mg 11/21/19 21:00 11/22/19 08:05 Slow-Mag PO 12/21/19 20:59 Not Given BID DEJA Miscellaneous 1 ea 11/21/19 16:00 11/22/19 08:04 Order Awaiting Action N/A 12/21/19 15:59 Not Given QS DEJA Montelukast Sodium 10 mg 11/22/19 09:00 11/22/19 08:05 Singulair PO 12/22/19 08:59 Not Given DAILY DEJA Ondansetron HCl 4 mg 11/21/19 13:40 11/22/19 11:12 Zofran IV 12/21/19 13:39 4 mg Q6H PRN Administration Nausea Pantoprazole Sodium 40 mg 11/21/19 21:00 11/22/19 08:05 Protonix PO 12/21/19 20:59 Not Given BID DEJA NPO Date Last Intake of Fluids: 11/22/19 Time Last Intake of Fluids: 00:00 Past Medical History Medical History Anxiety (Chronic) Breast cancer (Resolved 06/22/13) "Abnormal right breast mammogram Status post ultrasound-guided biopsy 06/22/2013 revealing moderately differentiated invasive ductal carcinoma Estrogen receptor positive, progesterone receptor positive HER-2/ismael negative Status post left breast biopsy 07/13/2013 that was benign Status post bilateral mastectomies with sentinel lymph node biopsy, placement of tissue expanders Stage pT3 pN2 M0 Status post completion of systemic chemotherapy comprised of Adriamycin and Cytoxan followed with Taxol Status post completion of radiation therapy 05/16/2014 received 6120 cGy Status post placement of permanent implants" Breast cancer Carcinoma of upper-outer quadrant of right female breast Dehydration (Acute) Gastroenteritis (Resolved) Headache (Acute) History of left knee replacement (Resolved) Hypertension (Chronic) Hypomagnesemia (Acute) Kidney stones (Resolved) Myalgia (Acute) Nausea, vomiting and diarrhea (Acute) Upper respiratory infection (Acute ~09/2014) Urinary tract infection (Resolved) Exercise / Class Metabolic Activity III < 4 Walking/Shop/Light housework Past Family History Family History Other Breast cancer Denies family history of Ovarian cancer Colorectal cancer Past Surgical History Surgical History H/O bilateral mastectomy (Resolved) H/O colonoscopy H/O: hysterectomy (Resolved) History of bladder surgery S/P bilateral salpingo-oophorectomy S/P tonsillectomy (Resolved) S/P total abdominal hysterectomy S/P total knee arthroplasty Past Anesthesia History No Hx of Anesthesia Complications and No Family Hx of Anesthesia Complications History of PONV No Hx of PONV and No Hx of Motion Sickness Social History Smoking Status: Former smoker tobacco type: cigarettes Do You Dip or Chew Tobacco: No Hx Alcohol Use: No Hx Substance Use: No substance use type: does not use Physical Exam Vital Signs Last Vital Signs Temp 37.0 C 11/22/19 07:20 Pulse 81 11/22/19 07:20 Resp 16 11/22/19 07:20 BP 152/85 H 11/22/19 07:20 Pulse Ox 92 11/22/19 07:20 Testing Laboratory Results 11/22/19 05:11 11/22/19 05:11 PT 9.8 Seconds (9.0-12.0) 11/21/19 09:59 INR 1.0 (0.9-1.1) 11/21/19 09:59 APTT 25.3 Seconds (21.0-31.0) 11/21/19 09:59 Urine Color Yellow 11/21/19 10:46 Urine Appearance Clear (Clear) 11/21/19 10:46 Urine pH 6.5 (4.5-7.5) 11/21/19 10:46 Ur Specific [place] 1.020 (1.000-1.030) 11/21/19 10:46 Urine Protein 2+ (Negative) H 11/21/19 10:46 Urine Glucose (UA) Negative (Negative) 11/21/19 10:46 Urine Ketones Negative (Negative) 11/21/19 10:46 Urine Nitrite Negative (Negative) 11/21/19 10:46 Ur Leukocyte Esterase Negative (Negative) 11/21/19 10:46 Urine WBC (Auto) 1-5 /hpf (0-5) 11/21/19 10:46 Urine RBC (Auto) 5-10 /hpf (0-4) H 11/21/19 10:46 U Hyaline Cast (Auto) 1-5 /lpf (0-5) 11/21/19 10:46 U Epithel Cells (Auto) 10-20 /lpf (0-5) H 11/21/19 10:46 Urine Bacteria (Auto) Negative (Negative) 11/21/19 10:46 11/21/19 09:59 Aerobic Blood Culture - Preliminary Blood No growth in Aerobic bottle after 24 hours. Anaerobic Blood Culture - Preliminary No growth in Anaerobic bottle after 24 hours. 11/21/19 09:50 Gram Stain - Final Breast,Right Deep Wound Culture - Preliminary No growth to date.
--- NOTE | 2019-11-22 12:06 | Post Operative Brief Note ---
PG Immediate Post Op with CF Date of Surgery November 22, 2019 Pre & Post Diagnosis Operation Date: 11/22/19 11:15 Pre-Op Diagnosis: MASTITIS/CELLULITIS Post-Op Diagnosis: MASTITIS/CELLULITIS I identified the patient and participated in the time-out.: Yes Procedure Operation Date: 11/22/19 11:15 Actual Procedures p Incision and Drainage Right Chest Wall, Excision of Right wall abscess(Right) - Giorgio Faust MD Surgeon Giorgio Faust MD Industrial Economics Professor b arcelia skelton Estimated Blood Loss 5 Findings Consistent with Post-Op Diagnosis Specimens Specimen Description: Culture: A. Right chest wall abscess Permanent: B. Biopsy of right chest abscess cavity Drains Kade Drain
--- NOTE | 2019-11-22 12:16 | Operative Report ---
PG Post Operative Report Pre & Post Diagnosis Operation Date: 11/22/19 11:15 Pre-Op Diagnosis: MASTITIS/CELLULITIS Post-Op Diagnosis: MASTITIS/CELLULITIS I identified the patient and participated in the time-out.: Yes Procedure Operation Date: 11/22/19 11:15 Actual Procedures p Incision and Drainage Right Chest Wall, Excision of Right wall abscess(Right) - Giorgio Faust MD The patient was brought into the operating theater in supine position IV analgesics was given the right chest wall was prepped byline solution properly draped the patient was on antibiotics the area of interest which was a multiloculated fluid collection in the anterior chest wall through the previous incision that she has had for mastectomy and implants had a central core which were spontaneous drainage of serous fluid on this was what brought into the patient to the hospital she was admitted recently where at that time she was treated with IV antibiotics but never had any drainage from the incision until this time therefore I made an incision approximately an inch long easily get into the abscess cavity which was quite fluctuant we were able to suction things out and found mostly serous fluid was small to be loculated areas. We did take cultures of this for aerobes and anaerobes. Once we were done we could see that the this was a chronic and seroma that apparently was quite extensive and he broke through the skin wall we can feel the abscess cavity and it typically chronically inflamed in the inferior aspect of the incision I can feel indurated area which was similarly all probably the Cyst wall itself I did take a biopsy of that making sure that it was not anything's more significant than that issue at this time is whether to put a drain in or possibly just pack a day elected to pack of 1/4 inch Kade plain at this point and then tomorrow we will see how she does and await for cultures and then may consider putting a VAC system versu s drain addendum Brett skelton helped with exposure during the procedure Surgeon Giorgio Faust MD Synthetic Filament Extruder bianca skelton Estimated Blood Loss 5 Findings Consistent with Post-Op Diagnosis Specimens biopsy abscess cavity Description of Procedure c and s fluid I attest to the content of the Intraoperative Record and any orders documented therein. Any exceptions are noted below.
[2019-11-22] MEDS ORDERED: LIDOCAINE HCL 2% 2 ML VIAL/AMP(20MG/ML) INFIL ONE (12:17)
[2019-11-22] MEDS ORDERED: PROPOFOL IV EMULSION 10 MG/ML 20 ML VIAL IV ONE (12:17)
[2019-11-22] MEDS ORDERED: ATROPINE SULFATE 0.1 MG/ML 10ML SYR IV PRN (12:26)
[2019-11-22] MEDS ORDERED: ePHEDrine sulfate 50 MG/ML AMP IV PRN (12:26)
--- NOTE | 2019-11-22 12:28 | Anesthesiology Progress Note ---
Date of Service November 22, 2019 Anesthesia Post Procedure Vital Signs Vital Signs: Temp Pulse Pulse Resp BP Pulse Ox 11/22/19 12:20 65 16 128/65 99 11/22/19 12:12 37.5 C 66 16 120/73 98 11/22/19 07:20 37.0 C 81 16 152/85 H 92 11/21/19 23:05 36.8 C 67 18 115/71 93 11/21/19 15:39 37.1 C 73 17 144/74 H 94 11/21/19 13:15 36.9 C 16 152/88 H 96 Pain Intensity Right Breast: Pain Intensity: 2 Transfer of Care Handoff Completed per policy Notes Mental Status: alert / awake / arousable Patient Amnestic to Procedure: Yes Nausea / Vomiting: adequately controlled Pain: adequately controlled Airway Patency, RR, SpO2: stable & adequate BP & HR: stable & adequate Hydration State: stable & adequate Anesthetic Complications: no major complications apparent
[2019-11-22] MEDS ORDERED: MoRPHine SULFATE 2 MG/ML CARP IV PRN (12:49)
[2019-11-22] MEDS: ACETAMINOPHEN W/CODEINE #3 1 TAB PO PRN ×2 (15:24→21:33)
[2019-11-22] MEDS: ACETAMINOPHEN 325 MG TAB PO PRN (19:54)
[2019-11-23] MEDS: ONDANSETRON INJ 2 MG/ML 2 ML VIAL IV PRN ×2 (07:42→23:49)
[2019-11-23] MEDS: DOCUSATE SODIUM 100 MG CAP PO SCH ×2 (07:46→20:38)
[2019-11-23] MEDS: MAGNESIUM CHLORIDE 64MG DELAYED REL TAB PO SCH ×2 (07:46→20:38)
[2019-11-23] MEDS: MONTELUKAST SODIUM 10 MG TABLET PO SCH (07:46)
[2019-11-23] MEDS: IPRATROPIUM BROMIDE/ALBUTEROL respimat INH INH SCH ×4 (07:46→20:38)
[2019-11-23] MEDS: PANTOprazole 40 MG TAB PO SCH ×2 (07:46→20:38)
[2019-11-23] MEDS: AMLODIPINE BESYLATE 5 MG TAB PO SCH (07:46)
[2019-11-23] MEDS: LETROZOLE 2.5 MG TAB PO SCH (07:47)
--- NOTE | 2019-11-23 08:04 | Surgery Progress Note ---
Date of Service November 23, 2019 Assessment & Plan (1) Cellulitis of chest wall: POD 1 I&D right chest wall await wound care eval, packing can be removed, ? wound vac Subjective c/o AM nausea which is chronic Physical Exam Chest (Breasts): Additional Comments: dressing, clean, dry Results & Data Vital Signs (Past 12 Hours) Vital Signs Temp Pulse Pulse Resp BP Pulse Ox 11/23/19 07:14 36.9 C 82 16 155/86 H 91 11/23/19 03:44 36.9 C 67 16 146/82 H 92 11/22/19 23:20 36.7 C 67 16 136/74 93 PG Care Time/CCT Total # of Minutes Spent Total Time Spent with Patient: Total time spent is greater than 50% in coordination of care (as documented) at patient's floor/unit and/or counseling patient: Coding Level of Care Code None Diagnoses Cellulitis of chest wall L03.313
--- NOTE | 2019-11-23 09:16 | Anesthesiology Progress Note ---
Date of Service November 23, 2019 Anesthesia Post Procedure Vital Signs Vital Signs: Temp Pulse Pulse Resp BP Pulse Ox 11/23/19 07:14 36.9 C 82 16 155/86 H 91 11/23/19 03:44 36.9 C 67 16 146/82 H 92 11/22/19 23:20 36.7 C 67 16 136/74 93 11/22/19 20:00 36.6 C 72 18 154/74 H 92 11/22/19 15:19 36.8 C 64 18 127/77 96 11/22/19 14:49 36.5 C 79 16 133/79 97 11/22/19 13:45 71 16 149/80 H 98 11/22/19 13:18 67 16 148/78 H 97 11/22/19 12:45 36.9 C 69 69 16 123/74 93 11/22/19 12:30 37.2 C 68 16 131/70 99 11/22/19 12:20 65 16 128/65 99 11/22/19 12:12 37.5 C 66 16 120/73 98 Pain Intensity Right Breast: Pain Intensity: 4 Notes Mental Status: alert / awake / arousable and participated in evaluation Patient Amnestic to Procedure: Yes Nausea / Vomiting: adequately controlled Pain: adequately controlled Airway Patency, RR, SpO2: stable & adequate BP & HR: stable & adequate Hydration State: stable & adequate Anesthetic Complications: no major complications apparent and Pt Satisfied with anesthetic care
[2019-11-23] MEDS: CEFEPIME 2,000 MG in SYRINGE 7.5 ML IV SCH (09:52)
[2019-11-23] MEDS: DAPTOmycin 200 MG in SYRINGE 0 ML IV SCH (09:52)
[2019-11-23] MEDS: ACETAMINOPHEN W/CODEINE #3 1 TAB PO PRN ×2 (12:32→20:39)
--- NOTE | 2019-11-23 12:59 | Infectious Disease Consult ---
Date of Consultation November 23, 2019 Assessment & Plan (1) Cellulitis of chest wall: continue abx, follow culture results. local care to wound History of Present Illness Attending Physician: Oswald Mcelroy pt admitted with erythema pain ovre left breast mastectomy site, ultrasound showed [id number] collection, drained in OR, serous fluid, cultures pending, blood cutlures pending, afebrile. on vanco and cefepime and tolerating well. wbc 6. having some pain over incision, denies f/c no abd pain, no n/v/d. no cp, sob, cough. Allergies Allergy/AdvReac Type Severity Reaction Status Date / Time tetanus toxoid, adsorbed Allergy Severe Anaphylaxis Verified 11/21/19 10:58 vancomycin Allergy Severe throat Verified 11/21/19 10:58 swelling Penicillins Allergy Intermediate Rash Verified 11/21/19 10:58 Sulfa (Sulfonamide Allergy Intermediate RASH Verified 11/21/19 10:58 Antibiotics) erythromycin base Allergy Unknown Unknown Verified 11/21/19 10:58 Umuekez-Uvn-Oxg Reductase AdvReac Mild Leg cramps Verified 11/21/19 10:58 Inhibitor Home Medications Home Medications Medication Instructions Recorded Confirmed Type omeprazole 20 mg capsule,delayed 20 mg PO BID #180 cap 04/04/19 11/21/19 Rx release coenzyme Q10 10 mg capsule 10 mg PO TID 05/03/19 11/21/19 History fluticasone propionate 50 2 sprays INTNAS DAILY PRN 05/03/19 11/21/19 History mcg/actuation nasal spray,suspension magnesium chloride 71.5 mg 143 mg PO BID tab 05/03/19 11/21/19 History (magnesium chloride) tablet,delayed release triamcinolone acetonide 0.1 % 1 appln TOP BID 05/03/19 11/21/19 History topical cream docusate sodium 100 mg capsule 100 mg PO BID #180 cap 05/07/19 11/21/19 History ondansetron HCl 4 mg tablet 4 mg PO Q8H PRN #90 tab 09/14/19 11/21/19 Rx doxycycline hyclate 100 mg capsule 100 mg PO BID #20 cap 10/05/19 11/21/19 Rx alprazolam 1 mg tablet 1 mg PO BID PRN #180 tab 01/17/20 02/26/20 Rx amlodipine 5 mg tablet 5 mg PO DAILY #90 tab 11/08/19 11/21/19 Rx montelukast 10 mg tablet 10 mg PO DAILY #90 tab 11/08/19 11/21/19 Rx acetaminophen-codeine 1 - 2 tab PO Q6H PRN 11/21/19 11/21/19 History cyclobenzaprine 10 mg PO TID PRN 11/21/19 11/21/19 History diclofenac sodium 1 % TOPICAL QID PRN 11/21/19 11/21/19 History fluocinolone acetonide oil 1 drp OTIC (EAR) UD 11/21/19 11/21/19 History ipratropium-albuterol [Combivent 1 puff INHALATION QID 11/21/19 11/21/19 History Respimat] letrozole 2.5 mg PO DAILY 11/21/19 11/21/19 History meloxicam 15 mg PO DAILY PRN 11/21/19 11/21/19 History Patient History Medical History Anxiety (Chronic) Breast cancer (Resolved 06/22/13) "Abnormal right breast mammogram Status post ultrasound-guided biopsy 06/22/2013 revealing moderately differentiated invasive ductal carcinoma Estrogen receptor positive, progesterone receptor positive HER-2/ismael negative Status post left breast biopsy 07/13/2013 that was benign Status post bilateral mastectomies with sentinel lymph node biopsy, placement of tissue expanders Stage pT3 pN2 M0 Status post completion of systemic chemotherapy comprised of Adriamycin and Cytoxan followed with Taxol Status post completion of radiation therapy 05/16/2014 received 6120 cGy Status post placement of permanent implants" Breast cancer Carcinoma of upper-outer quadrant of right female breast Dehydration (Acute) Gastroenteritis (Resolved) Headache (Acute) History of left knee replacement (Resolved) Hypertension (Chronic) Hypomagnesemia (Acute) Kidney stones (Resolved) Myalgia (Acute) Nausea, vomiting and diarrhea (Acute) Upper respiratory infection (Acute ~09/2014) Urinary tract infection (Resolved) Surgical History H/O bilateral mastectomy (Resolved) H/O colonoscopy H/O: hysterectomy (Resolved) History of bladder surgery S/P bilateral salpingo-oophorectomy S/P tonsillectomy (Resolved) S/P total abdominal hysterectomy S/P total knee arthroplasty Family History Other Breast cancer Denies family history of Ovarian cancer Colorectal cancer Social History Preferred Language: Estonian Communication Ability: Effective Farm Machine Tender Required: No Beliefs That Will Affect Care: None marital status: Current Living Situation: Spouse and Family current occupational status: retired Other Information That Helps Us Care for You: No Feels Safe at Home: Yes Safety Concerns: Feels Safe At This Time Smoking Status: Former smoker Tobacco Type: cigarettes ; Do You Dip or Chew Tobacco: No ; Second Hand Exposure: No ; Tobacco Cessation Education Requested by Patient: No Hx Alcohol Use: No Hx Substance Use: No Review of Systems Review of Systems: All systems reviewed & are unremarkable except as noted in HPI & below Physical Exam Constitutional: WD/WN, vitals as above Eyes: PERRL, conjunctivae normal, anicteric sclerae ENMT: external ear and nose normal, oropharynx normal Neck: normal visual inspection Respiratory: normal respiratory effort, lungs clear to auscultation Cardiovascular: RRR, no murmur, no edema Gastrointestinal (Abdomen): normal bowel sounds, soft, nontender, no hepatosplenomegaly Musculoskeletal: no cyanosis or clubbing, extremities motor strength 5/5 Skin: no rashes, warm and dry + wound (dressing c/d/i) Psychiatric: A+Ox3, euthymic affect Results & Data ([facility]) Vital Signs (Past 12 Hours) Vital Signs Temp Pulse Pulse Resp BP Pulse Ox 11/23/19 07:14 36.9 C 82 16 155/86 H 91 11/23/19 03:44 36.9 C 67 16 146/82 H 92 Laboratory Results Microbiology 11/21/19 09:59 Blood Aerobic Blood Culture - Preliminary No growth in Aerobic bottle after 48 hours. 11/21/19 09:59 Blood Anaerobic Blood Culture - Preliminary No growth in Anaerobic bottle after 48 hours. 11/22/19 Unknown Chest Gram Stain - Final 11/22/19 Unknown Chest Aerobic and Anaerobic Culture - Preliminary Pin-point growth present, reincubating. 11/21/19 10:22 Blood Aerobic Blood Culture - Preliminary No growth in Aerobic bottle after 24 hours. 11/21/19 10:22 Blood Anaerobic Blood Culture - Preliminary No growth in Anaerobic bottle after 24 hours. 11/21/19 09:50 Breast,Right Gram Stain - Final 11/21/19 09:50 Breast,Right Deep Wound Culture - Preliminary No growth to date. PG Care Time/CCT Total # of Minutes Spent Total Time Spent with Patient: Total time spent is greater than 50% in coordination of care (as documented) at patient's floor/unit and/or counseling patient: Coding Level of Care Code 77088 Inpt Consult Level 4 Diagnoses Cellulitis of chest wall L03.313
[2019-11-23] MEDS: ACETAMINOPHEN 325 MG TAB PO PRN (15:39)
[2019-11-23] MEDS: ALPRAZolam 0.5 MG TABLET PO PRN ×2 (15:40→23:38)
--- NOTE | 2019-11-23 18:55 | Hospitalist Progress Note ---
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: - This is recurrent and involves the R upper chest wall as well - S/P I&D on 11/22 - Cx obtained during surgery - Cx from drainage on admission with no growth - surgical cx with rare gram positive cocci on stain but only pinpoint growth so far - Will continue Cefepime and Dapto currently - jt can de-escalate and can get ID input - Gen Surg following - appreciate surgical management - Wound care following - recommend wound vac to chest wall at - 150 mmHg continuous mode and change every MWF (2) Hypertension: - Continue Norvasc 5 mg daily (3) Breast cancer: - S/P Mastectomy - Continue Femara 2.5 mg daily Disposition: Await Cx and antibiotic adjustment/surgical management - home on D/C with [facility]; will need wound vac approval - possible D/C next 1-2 days Admission and Anticipated Discharge Date Admission Date: November 21, 2019 Supervising Physician Co-Signing Physician Notes Attending Attestation - Chart reviewed in detail, care plan d/w CHERRY Gallo. I agree w/ the car components of her documentation. Right chest wall cellulitis + abscess vs seroma -- s/p I/D by Dr Faust. Culture still negative. Continue IV abx however. Wound vac has been applied as well. Oswald Mcelroy MD Subjective Reports feeling well today. Pain is controlled. Tolerating diet and verbalizes no complaints. Re-visited in the afternoon and now has a wound vac placed and tolerating this. So far now growth on cultures. Remains afebrile Review of Systems Constitutional: no fever and no chills Respiratory: no cough and no dyspnea Cardiovascular: + edema (mild in RUE - chronic related to lymphedema); no chest pain and no palpitations Gastrointestinal: no abdominal pain, no nausea, no vomiting, no constipation and no diarrhea/loose stools Genitourinary: no dysuria Musculoskeletal: no body aches Physical Exam Constitutional: WD/WN, vitals as above Eyes: + anicteric sclerae ENMT: Ears: no hearing impairment Neck: trachea midline Respiratory: normal respiratory effort, lungs clear to auscultation Cardiovascular: RRR, no murmur, no edema Gastrointestinal (Abdomen): Inspection/Auscultation: normal bowel sounds Percussion/Palpation: abdomen soft; abdomen nontender Musculoskeletal: Head/Neck/Chest: normocephalic and head atraumatic Gait: normal gait Skin: surgical site with dressing on in AM; on reassessment wound vac in place - did review wound care imaging in chart Neurologic: moves all extremities Psychiatric: A+Ox3, euthymic affect Results & Data ([facility]) Vital Signs (Past 12 Hours) Vital Signs Temp Pulse Pulse Resp BP Pulse Ox 11/23/19 15:20 37.0 C 73 18 132/79 92 11/23/19 13:07 37.2 C 90 16 144/81 H 92 11/23/19 07:14 36.9 C 82 16 155/86 H 91 PG Care Time/CCT Total # of Minutes Spent Total Time Spent with Patient: Total time spent is greater than 50% in coordin ation of care (as documented) at patient's floor/unit and/or counseling patient: Coding Level of Care Code 42794 Subseq Hosp Care Lvl 2 Diagnoses 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
[2019-11-24 07:01] LABS: Hematocrit (blood only) 28.9 % (37-47); Hemoglobin 9.7 g/dL (12.0-16.0); Mean Corpuscular Hemoglobin 29.4 pg (25-34); Mean Corpuscular Hgb Conc 33.6 g/dL (32-36); Mean Corpuscular Volume 87.6 fL (80-100); Mean Platelet Volume 8.4 fL (7.4-10.4); Platelet Count 345 K/uL (130-400); RDW Coefficient of Variation 13.4 % (11.5-14.5); RDW Standard Deviation 43.1 fL (36.4-46.3); White Blood Count 6.51 K/uL (4.8-10.8)
[2019-11-24 07:25] LABS: BUN Creatinine Ratio 17.4 (10-20); Calcium 9.2 mg/dl (8.5-10.1); Creatinine Clr Calc Pharmacy 45.2 ml/min; Est GFR (Non-African American) 60.4; Potassium 4.3 mmol/L (3.5-5.1)
--- NOTE | 2019-11-24 08:51 | Surgery Progress Note ---
Date of Service November 24, 2019 Assessment & Plan (1) Cellulitis of chest wall: wound vac in place continue IV antibiotics doing well Subjective no complaints Review of Systems Constitutional: no fever and no chills Respiratory: no cough and no dyspnea Cardiovascular: no chest pain Gastrointestinal: no abdominal pain, no nausea and no vomiting Physical Exam Constitutional: WD/WN, vitals as above Neck: trachea midline Respiratory: normal respiratory effort, lungs clear to auscultation wound vac in place; tolerating well Cardiovascular: RRR, no murmur, no edema Gastrointestinal (Abdomen): normal bowel sounds, soft, nontender, no hepatosplenomegaly Musculoskeletal: Head/Neck/Chest: normocephalic and head atraumatic Skin: no rashes, warm and dry Results & Data Vital Signs (Past 12 Hours) Vital Signs Temp Pulse Pulse Resp BP Pulse Ox 11/24/19 08:00 36.9 C 72 18 134/79 91 11/23/19 23:34 36.8 C 76 16 138/75 91
[2019-11-24] MEDS: DOCUSATE SODIUM 100 MG CAP PO SCH ×2 (09:04→20:18)
[2019-11-24] MEDS: AMLODIPINE BESYLATE 5 MG TAB PO SCH (09:05)
[2019-11-24] MEDS: IPRATROPIUM BROMIDE/ALBUTEROL respimat INH INH SCH ×4 (09:05→20:18)
[2019-11-24] MEDS: MONTELUKAST SODIUM 10 MG TABLET PO SCH (09:06)
[2019-11-24] MEDS: PANTOprazole 40 MG TAB PO SCH ×2 (09:06→20:18)
[2019-11-24] MEDS: MAGNESIUM CHLORIDE 64MG DELAYED REL TAB PO SCH ×2 (09:07→20:18)
[2019-11-24] MEDS: LETROZOLE 2.5 MG TAB PO SCH (09:07)
[2019-11-24] MEDS: ACETAMINOPHEN W/CODEINE #3 1 TAB PO PRN ×2 (09:12→22:07)
[2019-11-24] MEDS: DAPTOmycin 200 MG in SYRINGE 0 ML IV SCH (10:10)
[2019-11-24] MEDS: CEFEPIME 2,000 MG in SYRINGE 7.5 ML IV SCH (10:14)
--- NOTE | 2019-11-24 19:39 | Hospitalist Progress Note ---
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: - This is recurrent and involves the R upper chest wall as well - S/P I&D on 11/22 - Cx obtained during surgery - Cx from drainage on admission with no growth - surgical cx with rare gram positive cocci on stain but only pinpoint growth so far but no identification - Will continue Cefepime and Dapto currently - jt can de-escalate and await ID input - Gen Surg following - appreciate surgical management - Wound care following - recommend wound vac to chest wall at - 150 mmHg continuous mode and change every MWF * Wound vac paperwork needs signed by a physician whether surgery or medicine - at medical secretary receptionist station - needs signed to get approval from insurance - pending approval likely can D/C home tomorrow or Tuesday (2) Hypertension: - Continue Norvasc 5 mg daily (3) Breast cancer: - S/P Mastectomy - Patient is no longer taking Femara - but was on med rec on admission - will remove but did get doses in hospital Disposition: Await Cx and antibiotic adjustment/surgical management - home on D/C with [facility]; will need wound vac approval (form needs signed by physician) - possible D/C when approved Admission and Anticipated Discharge Date Admission Date: November 21, 2019 Supervising Physician Co-Signing Physician Notes Attending Attestation - Chart reviewed in detail, care plan d/w CHERRY Gallo. I agree w/ the car components of her documentation. Right chest wall cellulitis + abscess vs seroma -- s/p I/D by Dr Faust. Culture remains negative but IV abx to be continued. Wound vac in place. Dispo planning. Oswald Mcelroy MD Subjective Reports feeling well today. Pain is controlled. Tolerating diet. Tolerating wound vac. So far no growth on culture and ID is following, should be able to de-escalate. Anticipate return home with home services. Wound vac paperwork needs signed. Review of Systems Constitutional: no fever and no chills Respiratory: no cough and no dyspnea Cardiovascular: no chest pain, no palpitations and no lightheadedness Gastrointestinal: no abdominal pain, no nausea, no vomiting, no constipation and no diarrhea/loose stools Genitourinary: no dysuria Musculoskeletal: no joint pain Integumentary: no rash Neurologic: no tingling and no numbness Physical Exam Constitutional: WD/WN, vitals as above Eyes: + anicteric sclerae ENMT: Ears: no hearing impairment Neck: trachea midline Respiratory: normal respiratory effort, lungs clear to auscultation Cardiovascular: RRR, no murmur, no edema Chest (Breasts): Additional Comments: wound vac placed to R upper chest/anterior axillary region Gastrointestinal (Abdomen): Inspection/Auscultation: normal bowel sounds Percussion/Palpation: abdomen soft; abdomen nontender Musculoskeletal: no cyanosis or clubbing, extremities motor strength 5/5 Head/Neck/Chest: normocephalic and head atraumatic Gait: normal gait Skin: no rashes, warm and dry (other then mentioned in chest) Neurologic: moves all extremities Psychiatric: A+Ox3, euthymic affect Results & Data ([facility]) Vital Signs (Past 12 Hours) Vital Signs Temp Pulse Pulse Resp BP Pulse Ox 11/24/19 15:22 36.5 C 64 18 112/68 94 11/24/19 08:00 36.9 C 72 18 134/79 91 PG Care Time/CCT Total # of Minutes Spent Total Time Spent with Patient: Total time spent is greater than 50% in coordination of care (as documented) at patient's floor/unit and/or counseling patient: Coding Level of Care Code 47513 Subseq Hosp Care Lvl 2 Diagnoses 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
[2019-11-24] MEDS: ALPRAZolam 0.5 MG TABLET PO PRN (22:05)
[2019-11-25] MEDS: DOCUSATE SODIUM 100 MG CAP PO SCH ×2 (08:46→20:09)
[2019-11-25] MEDS: PANTOprazole 40 MG TAB PO SCH ×2 (08:46→20:09)
[2019-11-25] MEDS: AMLODIPINE BESYLATE 5 MG TAB PO SCH (08:46)
[2019-11-25] MEDS: MONTELUKAST SODIUM 10 MG TABLET PO SCH (08:47)
[2019-11-25] MEDS: MAGNESIUM CHLORIDE 64MG DELAYED REL TAB PO SCH ×2 (08:47→20:09)
[2019-11-25] MEDS: ACETAMINOPHEN W/CODEINE #3 1 TAB PO PRN ×2 (09:32→21:53)
[2019-11-25] MEDS: DAPTOmycin 200 MG in SYRINGE 0 ML IV SCH (09:33)
[2019-11-25] MEDS: CEFEPIME 2,000 MG in SYRINGE 7.5 ML IV SCH (09:33)
--- NOTE | 2019-11-25 10:52 | Surgery Progress Note ---
Date of Service November 25, 2019 Assessment & Plan (1) Cellulitis of chest wall: continue IV abx await final cultures continue wound vac Subjective doing well no complaints wound vac in place likely change tomorrrow Review of Systems Constitutional: no fever and no chills Respiratory: no dyspnea Cardiovascular: no chest pain Gastrointestinal: no abdominal pain, no nausea and no vomiting Physical Exam Constitutional: WD/WN, vitals as above Neck: trachea midline Respiratory: normal respiratory effort, lungs clear to auscultation vac in place minimal surrounding erythema Cardiovascular: RRR, no murmur, no edema Gastrointestinal (Abdomen): Inspection/Auscultation: abdomen normal to inspection and normal bowel sounds; abdomen not distended Percussion/Palpation: abdomen nontender Musculoskeletal: Head/Neck/Chest: normocephalic and head atraumatic Skin: no rashes, warm and dry Results & Data Vital Signs (Past 12 Hours) Vital Signs Temp Pulse Resp BP Pulse Ox 11/25/19 07:09 36.5 C 62 16 131/77 93 11/24/19 23:02 37.0 C 78 16 131/82 91
[2019-11-25] MEDS: IPRATROPIUM BROMIDE/ALBUTEROL respimat INH INH SCH ×4 (12:31→20:06)
--- NOTE | 2019-11-25 17:42 | Hospitalist Progress Note ---
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 King today - appreciate recs - Gen Surg following - appreciate recs - Wound care following - recommend wound vac to chest wall at - 150 mmHg continuous mode and change every MWF * Wound vac paperwork needs signed by a physician whether surgery or medicine - at medical secretary teacher station - needs signed to get approval from insurance - pending approval - likely dc home tomorrow once [facility] with wound vac set up, appreciate CM assistance (2) Hypertension: - Continue Norvasc 5 mg daily (3) Breast cancer: - S/P Mastectomy - Patient is no longer taking Femara - but was on med rec on admission - will remove but did get doses in hospital Disposition: Follow wound cx, transition to oral abx upon dc with [facility]; will need wound vac approval (form needs signed by physician) Admission and Anticipated Discharge Date Admission Date: November 21, 2019 Supervising Physician Co-Signing Physician Notes Attending Attestation - Chart reviewed in detail, care plan d/w CHERRY Chahal. I agree w/ the car components of her documentation. Right chest wall cellulitis + suspected abscess -- s/p I/D by Dr Faust. Culture remains negative. ID consult appreciated; they have recommended transitioning IV abx to PO abx. Plan is for 2 weeks of PO abx. Wound vac in place. Discharge hopefully next 24 hours. Oswald Mcelroy MD Subjective The patient was seen and examined this morning. Pt states she is doing well. She reports that she has minimal pain but still feels swollen in the right chest wall and axilla. She denies any fevers or chills or sweats overnight. She has been eating and drinking without much difficulty. She reports hesitancy about discharge today as her daughter is not home this weekend to help care for her this evening. Her is much older than her and would be unable to help her at home. Wound VAC changes to be set up by case management with home health services, still in process as it is the weekend. Patient has no other acute complaints. Review of Systems Review of Systems: Constitutional: No fever, sweats or chills Eyes: No diplopia, no worsening or blurred vision ENT: normal hearing, no trouble swallowing Respiratory: No cough, sputum, dyspnea at rest or on exertion Chest wall: VAC in place, good seal, nontender Cardiovascular: No chest pain, tightness or palpitations Abdomen: No pain, nausea, vomiting, diarrhea or constipation Musculoskeletal: No joint pain, calf pain, swelling Neurologic: No weakness, numbness/tingling, or balance problems Psychiatric: No anxiety or depression Skin: No rash or itch Physical Exam Physical Exam: General: awake, alert, no apparent distress Head: Normocephalic, atraumatic ENT: PERRL, EOMI, no pharyngeal exudate, mucous membranes moist, + wearing sunglasses throughout exam Chest: + Wound VAC in place, minimally surrounding erythema, clear to auscultation, on room air, no adventitious breath sounds Cardiac: Regular rate and rhythm, no murmur, no JVD, normal peripheral pulses, good capillary refill Abdominal: NABS x 4 quadrants, soft, nontender to palpation, no rebound, guarding or tenderness Extremities: Normal inspection, no peripheral edema or erythema, calfs nontender to palpation Psych: Normal mood and affect Neuro: AAO x 3, strength intact bilaterally and rated 5/5, no motor deficits, speech is clear, no peripheral sensory deficits Skin: no rash or erythema Results & Data ([facility]) Vital Signs (Past 12 Hours) Vital Signs Temp Pulse Resp BP Pulse Ox 11/25/19 15:00 36.6 C 66 16 122/72 90 11/25/19 07:09 36.5 C 62 16 131/77 93 PG Care Time/CCT Total # of Minutes Spent Total Time Spent with Patient: Total time spent is greater than 50% in coordination of care (as documented) at patient's floor/unit and/or counseling patient: Coding Level of Care Code 61528 Inpt Consult Level 3 Diagnoses 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
[2019-11-25] MEDS: ALPRAZolam 0.5 MG TABLET PO PRN (21:53)
[2019-11-26 06:23] LABS: Creatinine Clr Calc Pharmacy 55.5 ml/min; Est GFR (African American) 89.9; Est GFR (Non-African American) 77.6
--- NOTE | 2019-11-26 08:13 | Surgery Progress Note ---
Date of Service November 26, 2019 Assessment & Plan (1) Cellulitis of chest wall: The patient can be discharged from my point of view and follow-up with the wound clinic there is no need to follow-up with us in the office unless new issues arise Present on Admission?: Yes Subjective No acute problems she states her right arm may be more swollen than normal he has minimal drainage from her VAC system no pain Physical Exam Physical Exam: Is alert coherent VAC system in place there is no surrounding edema or cellulitis grossly the right upper extremity appears the same to me as preop Results & Data Vital Signs (Past 12 Hours) Vital Signs Temp Pulse Pulse Resp BP Pulse Ox 11/26/19 07:51 36.8 C 70 14 118/68 91 11/25/19 22:56 36.7 C 78 16 138/74 91 PG Care Time/CCT Total # of Minutes Spent Total Time Spent with Patient: Total time spent is greater than 50% in coordination of care (as documented) at patient's floor/unit and/or counseling patient: Coding Level of Care Code None Diagnoses Cellulitis of chest wall L03.313
[2019-11-26 08:16] LABS: Hematocrit (blood only) 28.9 % (37-47); Hemoglobin 9.6 g/dL (12.0-16.0); Mean Corpuscular Hemoglobin 29.3 pg (25-34); Mean Corpuscular Hgb Conc 33.2 g/dL (32-36); Mean Corpuscular Volume 88.1 fL (80-100); Mean Platelet Volume 8.4 fL (7.4-10.4); Platelet Count 417 K/uL (130-400); RDW Coefficient of Variation 13.1 % (11.5-14.5); RDW Standard Deviation 42.6 fL (36.4-46.3); Red Blood Count 3.28 M/uL (4.2-5.4); White Blood Count 6.69 K/uL (4.8-10.8)
[2019-11-26 08:22] LABS: BUN Creatinine Ratio 19.4 (10-20); Calcium 9.9 mg/dl (8.5-10.1); Creatinine Clr Calc Pharmacy 54.8 ml/min; Est GFR (African American) 88.5; Est GFR (Non-African American) 76.3; Potassium 4.3 mmol/L (3.5-5.1)
[2019-11-26] MEDS: DOCUSATE SODIUM 100 MG CAP PO SCH (08:36)
[2019-11-26] MEDS: AMLODIPINE BESYLATE 5 MG TAB PO SCH (08:36)
[2019-11-26] MEDS: PANTOprazole 40 MG TAB PO SCH (08:37)
[2019-11-26] MEDS: MONTELUKAST SODIUM 10 MG TABLET PO SCH (08:37)
[2019-11-26] MEDS: MAGNESIUM CHLORIDE 64MG DELAYED REL TAB PO SCH (08:38)
[2019-11-26] MEDS: IPRATROPIUM BROMIDE/ALBUTEROL respimat INH INH SCH ×2 (08:38→13:20)
[2019-11-26] MEDS: ACETAMINOPHEN W/CODEINE #3 1 TAB PO PRN (08:45)
[2019-11-26] MEDS: CEFEPIME 2,000 MG in SYRINGE 7.5 ML IV SCH (09:30)
[2019-11-26] MEDS: DAPTOmycin 200 MG in SYRINGE 0 ML IV SCH (09:30)
[2019-11-26] MEDS: ALPRAZolam 0.5 MG TABLET PO PRN (11:47)
[2019-11-26] MEDS ORDERED: DOXYCYCLINE HYCLATE 100 MG CAP PO SCH (12:30)
--- NOTE | 2019-11-26 13:07 | Discharge Summary ---
Date of Service November 26, 2019 Admission HPI Per Admitting Provider This is a 79-year-old female with past medical history of breast cancer status post right mastectomy, lymphedema, recurrent cellulitis that presents today complaining of cellulitis. Patient is pleasant and a very good historian. Patient has had ongoing issues with cellulitis in the right chest wall and right upper extremity. Typically it resolves with a course of doxycycline. However, patient started having flulike symptoms around . These progressed into some localized swelling and erythema in the right upper chest wall near the surgical wound, which is her typical area. She was seen at the cancer center on 11/19 and was started again on oral doxycycline. When she woke up this morning, she found that her bed linens were saturated secondary to drainage from the wound. She says while she does have erythema and pain, the draining is not typical of her course of cellulitis and she came to the emergency room for further evaluation. Patient seems to be in good spirits and is in no distress. She does have some soreness in that area. She is currently afebrile. She does note that the wound continues to drain and the erythema has tracked into her very proximal right upper extremity. Of note, patient has a history of lymphedema but she says that this is improved greatly over time and her arm is only mildly chronically swollen at this point. Admission Exam Per Admitting Provider Constitutional: cooperative; no acute distress Neck: trachea midline, no thyromegaly Respiratory: normal respiratory effort Auscultation: lungs clear to auscultation bilaterally; no crackles, no rales, no rhonchi and no wheezes Cardiovascular: Rate/Rhythm: regular rate and regular rhythm Heart Sounds: normal S1, normal S2 and + murmur Chest (Breasts): Additional Comments: Right breast status post mastectomy. Old surgical wound noted. There is erythema around this area is localized. There is no obvious fluid collection to palpation. There is a small opening which is draining small amounts of serous fluid. 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 No erythema of posterior pharynx Neck: Supple and nontender Cardiac: RRR Lungs: CTA bilaterally Abdomen: Bowel normoactive X 4; Nontender to palpation Extremities: Warm. No edema present Neuro: No focal weakness Skin: Wound vac right chest wall, no surrounding erythema noted. Discharge Data Allergies Allergy/AdvReac Type Severity Reaction Status Date / Time tetanus toxoid, adsorbed Allergy Severe Anaphylaxis Verified 11/21/19 10:58 vancomycin Allergy Severe throat Verified 11/21/19 10:58 swelling Penicillins Allergy Intermediate Rash Verified 11/21/19 10:58 Sulfa (Sulfonamide Allergy Intermediate RASH Verified 11/21/19 10:58 Antibiotics) erythromycin base Allergy Unknown Unknown Verified 11/21/19 10:58 Emkqfps-Vys-Mit Reductase AdvReac Mild Leg cramps Verified 11/21/19 10:58 Inhibitor Consultations 11/21/19 11:25 ED Decision to Admit Stat 11/21/19 13:40 Consult General Surgery Stat 11/22/19 18:03 Consult Infectious Diseases Routine Procedures Performed Operation Date: 11/22/19 11:15 Actual Procedures p Incision and Drainage Right Chest Wall, Excision of Right chest wall abscess(Right) - Giorgio Ruth MD Ordered Studies 11/21/19 09:44 US extremity non-vascular ltd Stat CXR Hospital Course (1) 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 Blood cultures were negative. Received Cefepime/Daptomycin as inpatient; will transition to Levaquin/Doxycyline as outpatient per ID to complete total of 2 weeks. General surgery consulted, appreciate input. Wound care consulted -- wound vac was placed with -150 mmHg continuous mode. Wound vac will need changes qMWF - can be completed by home nursing but pt. will need to follow up with wound clinic periodically for evaluation by Dr. Lopez. F/u with PCP as well post discharge for evaluation. (2) Hypertension: Continued Norvasc 5 mg daily. (3) Anemia: Hgb 9.6 on day of discharge. Possibly related to acute blood loss anemia. Baseline hgb ~12-13. Consider outpatient lab monitoring per PCP. (4) Anxiety disorder: On Xanax 1 mg BID prn at home. Can continue med as prescribed if needed at discharge. (5) Gastroesophageal reflux disease: On Omeprazole 20 mg BID. Continue med at discharge. (6) Hyponatremia: Na level trending down, was 130 on day of discharge. Urine sodium >60 - not strictly related to dehydration. Consider outpatient labs per PCP to monitor Na levels. (7) Breast cancer: S/P Mastectomy Patient is no longer taking Femara - but was on med rec on admission. Now discontinued. Discharged to home on 11/26/19 with home health support. Has appt in wound clinic scheduled on December 02 at 9 am. Total Time Total Time Spent Total Time Spent (In Minutes): >30 minutes Total Time Includes: Examination of the Patient, Discharge Planning, Medication Reconciliation, Communication With Other Providers and Other Discharge Plan Discharge Items Patient Disposition: Home - Self-Care Reason For Visit: MASTITIS/CELLULITIS Discharge Diagnosis: Mastitis/Cellulitis Condition on Discharge: Fair Goals: You have been hospitalized for an acute medical problem. During your stay at [facility], we have made an effort to correct the problem that brought you to the hospital while keeping you as comfortable as possible. Medications were used to bring your condition under control and your discharge instructions will include directions for any medications you should take after leaving the hospital. Please make sure you see your Primary Care Provider as part of your follow up plan. Activity: As commented below Exercise/Sports: Gradually increase as tolerated Non-emergency contact: Primary Care Provider Call non-emergency contact if: you have any medication questions, your symptoms worsen, you have a fever, your wound has increased redness, your wound has increased drainage and your wound pain has increased Follow-up/Referrals: Gerson Byers MD [Primary Care Provider] - 12/03/19 12:30 pm (APPT MADE WITH CRISTINA CASTILLO AT THE [facility]. IF YOU NEED TO CHANGE APPT PLEASE CALL [phone].) Giorgio Ruth MD [Surgeon] - (DR RUTH DOESN'T NEED TO F/U WITH PATIENT. PATIENT IS TO F/U WITH WOUND CLINIC-PER OFFICE STAFF.) Saji Lopez DO [Physician] - 12/03/19 9:00 am Diet: Heart Healthy Addtl Attending Provider Instructions: 1. Right upper extremity wound * Home nursing has been arranged for wound vac changes every Tuesday, Tuesday and Tuesday. - Wound dressing instructions: [employer] wound vac to right chest wall, apply skin prep to periphery and allow to dry. Apply drape to periphery. Fill wound with white foam, top off with black foam. Set VAC to -150 mmhg continuous mode. * You will also need to follow up in the wound clinic periodically for evaluation by Dr. Lopez. Your first appointment is on December 02 at 9 am. Their office number is [phone]. * Please continue Levaquin 750 mg daily and Doxycycline 100 mg twice daily for treatment of infection. * Please follow up with PCP to discuss this hospital admission. Pending Studies at Discharge: Yes Studies:: Chest wound: Coag neg staph (prelim) Blood cultures 11/21: negative (prelim) Stand-Alone Forms: [facility], Opioid Pain Management Medications and DC Order Prescriptions: New doxycycline hyclate 100 mg Capsule 100 mg PO BID 8 Days Qty: 16 RF: 0 levofloxacin 750 mg Tablet 750 mg PO DAILY@1100 Qty: 8 RF: 0 Continued omeprazole 20 mg capsule,delayed release(DR/EC) 20 mg PO BID Qty: 180 RF: 3 ondansetron HCl 4 mg tablet 4 mg PO Q8H PRN (Reason: nausea and vomiting) Qty: 90 RF: 0 alprazolam 1 mg tablet 1 mg PO BID PRN (Reason: anxiety) Qty: 180 RF: 0 montelukast 10 mg tablet 10 mg PO DAILY Qty: 90 RF: 3 amlodipine 5 mg tablet 5 mg PO DAILY Qty: 90 RF: 3 fluticasone propionate 50 mcg/actuation spray,suspension 2 sprays INTNAS DAILY PRN (Reason: dryness) RF: 0 coenzyme Q10 10 mg capsule 10 mg PO TID RF: 0 Slow-Mag 71.5 mg tablet,delayed release (DR/EC) 143 mg PO BID RF: 0 triamcinolone acetonide 0.1 % cream 1 appln TOP BID RF: 0 docusate sodium 100 mg capsule 100 mg PO BID Qty: 180 RF: 0 cyclobenzaprine 10 mg Tablet 10 mg PO TID PRN (Reason: Muscle Spasm) RF: 0 meloxicam 15 mg Tablet 15 mg PO DAILY PRN (Reason: Pain) RF: 0 acetaminophen-codeine 300-30 mg tablet 1 - 2 tab PO Q6H PRN (Reason: Pain) RF: 0 fluocinolone acetonide oil 0.01 % drops 1 drp otic (ear) UD RF: 0 diclofenac sodium 1 % gel 1 % TOPICAL QID PRN (Reason: arthralgia) RF: 0 Combivent Respimat 20-100 mcg/actuation Mist 1 puff INHALATION QID RF: 0 Discontinued doxycycline hyclate 100 mg capsule 100 mg PO BID Qty: 20 RF: 0 Discharge Orders: Discharge Order (Routine); Ordered 11/26/19 Ordered By: Florence Mcallister/Other Patient Handouts: Surgery Prevent DVT After, Cellulitis Dc Admission Data Admit Date/Time: 11/21/19 11:29 Attending Provider: Stefan Martínez Admit Provider: Ulises Zaidi Primary Care Provider: Gerson Byers Other Providers: Shar Monterroso ; Marisa King ; [place] ; Florence Sinha Other Interventions: Discharge Summary Assessment (RN) Last Done: 11/26/19 08:25 Coding Level of Care Code D/C Day Management >30 mins Diagnoses 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
[2019-11-26 15:04] VITALS: BP 128/71; PULSE 66; TEMP 97.9; O2SAT 93
[2019-11-27] MEDS ORDERED: levoFLOXacin 750 MG TAB PO SCH (11:00)
== END 2019-11-26 18:36 | disposition home health service (06) | DRG 580 ==
LOC: ED 09:23 → SUATTDRO 11:29 → 3W 11:29

== ENCOUNTER 2020-10-18 22:39 | Observation (INO) ==
[2020-10-18] MEDS ORDERED: CEFEPIME 2,000 MG/20 ML VIAL IV STA (23:06)
[2020-10-18 23:25] LABS: Basophils # (auto) 0.01 K/uL (0-0.2); Basophils % (auto) 0.1 %; Hematocrit (blood only) 36.8 % (37-47); Hemoglobin 12.1 g/dL (12.0-16.0); Immature Granulocytes # (auto) 0.05 K/uL (0.00-0.02); Immature Granulocytes % (auto) 0.3 %; Lymphocytes # (auto) 1.01 K/uL (1.2-3.4); Lymphocytes % (auto) 5.8 %; Mean Corpuscular Hemoglobin 27.3 pg (25-34); Mean Corpuscular Hgb Conc 32.9 g/dL (32-36); Mean Corpuscular Volume 82.9 fL (80-100); Mean Platelet Volume 8.8 fL (7.4-10.4); Monocytes # (auto) 0.35 K/uL (0.11-0.59); Neutrophils # (auto) 15.87 K/uL (1.4-6.5); Neutrophils % (auto) 91.8 %; Platelet Count 253 K/uL (130-400); RDW Coefficient of Variation 15.9 % (11.5-14.5); RDW Standard Deviation 48.2 fL (36.4-46.3); Red Blood Count 4.44 M/uL (4.2-5.4); White Blood Count 17.29 K/uL (4.8-10.8)
[2020-10-18] MEDS ORDERED: DAPTOmycin 325 MG in SYRINGE 0 ML IV ONE (23:36)
[2020-10-18] MEDS ORDERED: SODIUM CHLORIDE 0.9% 1000ML 1,000 ML IV ONE (23:36)
--- NOTE | 2020-10-18 23:36 | Emergency Department Note ---
History of Present Illness General Chief complaint: Swelling/Edema to Extremity Stated complaint: HAND SWELLING Time Seen by Provider: 10/18/20 22:51 Source: patient Mode of arrival: ambulatory Limitations: no limitations History of Present Illness Maximum Pain Intensity: 4 This patient comes in redness and swelling of her right arm. She has a history of recurrent cellulitis in that arm. She has had abscesses before as well and had reconstructive surgery done at [place] a couple months ago. She said she has some mild discoloration and warmth for a couple days but got worse today where she had swelling. She did call and talk to her plastic surgeon Dr. Vega who recommend she come to the ER. No known exposure to Covid. No cough or shortness of breath or pleurisy. She felt a little nauseated earlier but think she was just anxious. No diarrhea. No injury to the arm. She normally does have a little bit of swelling on that arm. No history of blood clots. Home Medications Medication Instructions Recorded Confirmed Type montelukast 10 mg tablet 10 mg PO DAILY #90 tab 11/08/19 10/18/20 Rx coenzyme Q10 10 mg capsule 10 mg PO BID cap 11/27/19 10/18/20 History magnesium oxide 400 mg PO DAILY 12/03/19 10/18/20 History docusate sodium 100 mg capsule 100 mg PO BID #180 cap 12/18/19 10/18/20 Rx L.acid,gasseri,plant,rham-B.animalis-cran 250 mg PO UD 03/07/20 10/18/20 History 5 billion cell-250mg capsule melatonin 10 mg tablet 10 mg PO HS PRN 03/07/20 10/18/20 History multivitamin 1 tab PO DAILY 03/07/20 10/18/20 History sertraline 25 mg tablet 25 mg PO DAILY 03/10/20 10/18/20 History amlodipine 5 mg tablet 5 mg PO DAILY #90 tab 05/19/20 10/18/20 Rx omeprazole 20 mg capsule,delayed 20 mg PO BID #180 cap 06/03/20 10/18/20 Rx release diclofenac sodium 1 % topical gel 2 g TOPICAL QID PRN #100 g 08/20/20 10/18/20 Rx ondansetron HCl 4 mg tablet 4 mg PO Q8H PRN #90 tab 08/20/20 10/18/20 Rx acetaminophen 300 mg-codeine 30 mg 1 - 2 tab PO Q6H PRN #20 tab 08/29/20 10/18/20 Rx tablet alprazolam 1 mg tablet 1 mg PO BID PRN #180 tab 09/15/20 10/18/20 Rx doxycycline hyclate 100 mg PO BID 10/18/20 10/18/20 History Allergies Allergy/AdvReac Type Severity Reaction Status Date / Time tetanus toxoid, adsorbed Allergy Severe Anaphylaxis Verified 10/18/20 23:36 vancomycin Allergy Severe throat Verified 10/18/20 23:36 swelling Penicillins Allergy Intermediate Rash Verified 10/18/20 23:36 Sulfa (Sulfonamide Allergy Intermediate RASH Verified 10/18/20 23:36 Antibiotics) erythromycin base Allergy Unknown Unknown Verified 10/18/20 23:36 Lnyidav-Oeq-Urk Reductase AdvReac Mild Leg cramps Verified 10/18/20 23:36 Inhibitor Past Med/Surg History Medical History (Updated 10/19/20 @ 00:50 by Isaias De Anda MD) Allergic rhinitis Anemia Anxiety Atherosclerosis Breast cancer (06/22/13) "Abnormal right breast mammogram Status post ultrasound-guided biopsy 06/22/2013 revealing moderately differentiated invasive ductal carcinoma Estrogen receptor positive, progesterone receptor positive HER-2/ismael negative Status post left breast biopsy 07/13/2013 that was benign Status post bilateral mastectomies with sentinel lymph node biopsy, placement of tissue expanders Stage pT3 pN2 M0 Status post completion of systemic chemotherapy comprised of Adriamycin and Cytoxan followed with Taxol Status post completion of radiation therapy 05/16/2014 received 6120 cGy Status post placement of permanent implants" Breast cancer Carcinoma of upper-outer quadrant of right female breast Chronic interstitial cystitis Dehydration Depression Diverticulosis Dizziness Edema Gastroenteritis Gastroesophageal reflux disease Headache History of left knee replacement Hypercalcemia Hyperlipidemia Hypertension Hypokalemia Hypomagnesemia Hyponatremia Kidney stones Lymphedema Myalgia Nausea, vomiting and diarrhea Plantar fasciitis Restless legs syndrome Sacroiliitis Solitary pulmonary nodule Spondylosis Stress incontinence in female Surgical wound present Upper respiratory infection (~09/2014) Urinary tract infection Surgical History (Updated 10/19/20 @ 00:50 by Isaias De Anda MD) H/O bilateral mastectomy H/O colonoscopy H/O: hysterectomy History of bladder surgery S/P bilateral salpingo-oophorectomy S/P tonsillectomy S/P total abdominal hysterectomy S/P total knee arthroplasty Family History Other Breast cancer Denies family history of Ovarian cancer Prostate cancer Myocardial infarction Colorectal cancer Social History Smoking Status: Former smoker Second Hand Exposure: No; Hx Alcohol Use: No Hx Substance Use: No Preferred Language: Scottish Communication Ability: Effective Engineering Programmer Required: No Beliefs That Will Affect Care: None marital status: Current Living Situation: Spouse and Family current occupational status: retired Feels Safe at Home: Yes Assistive Devices: Glasses Review of Systems A total of 10 systems reviewed and were otherwise negative Physical Exam Vital Signs Vital Signs - 24 hr 10/18/20 22:41 10/18/20 23:15 10/19/20 00:06 Temperature 36.9 C Temperature Source Oral Pulse Rate 113 H Pulse Rate [Apical] 89 92 H Respiratory Rate 18 18 18 Respiratory Effort / Characteristics Non-Labored Non-Labored Respiratory Depth Normal Normal Normal Blood Pressure 138/79 Blood Pressure [Left Arm] 149/86 H Blood Pressure Mean 98 Blood Pressure Mean [Left Arm] 107 Pulse Oximetry 92 98 96 Oxygen Delivery Method Room Air Room Air Room Air Sepsis Recent Fever Within 48 Hours No Sepsis New/Unexplained Change in Mental Status No Sepsis Action Taken by Nursing No Action Required General: Well developed well nourished older female who appears in no acute distress, breathing comfortably on room air. Normal speech HEENT: Normal cephalic atraumatic. Pupils are equal round and reactive to light. Sclera anicteric. Extraocular movements are intact. Oropharynx is pink with moist mucous membranes. No swelling of the mouth lips or tongue. Neck: Supple with a midline trachea. No meningeal signs or stiffness, no JVD or bruits. No Stridor. Chest: Clear to auscultation bilaterally. No wheezes or rhonchi. No increased work of breathing. She has reconstructive surgery and scars but no obvious abscess or fluctuance or drainage. Heart: Regular rate and rhythm without murmurs or gallops. Abdomen: Soft nontender, nondistended without rebound guarding or rigidity. Extremities: The right arm is diffusely pink and warm. Extends up in the shoulder and slightly into the chest. There is no crepitus. She has full range of motion. She has good pulse exam and normal motor and sensation. No cyanosis clubbing or edema. No calf tenderness or assymetry Spine/Back. Non tender to palpation. No CVA tenderness Skin: Good turgor without rashes. Neurologic exam: Cranial nerves two through 12 are intact. Motor and sensation are intact and symmetrical throughout. Course Administered Medications Discontinued Medications Alprazolam (Alprazolam 0.5 Mg Tablet) 0.5 mg PO NOW STA Stop: 10/19/20 00:06 Last Admin: 10/19/20 00:14 Dose: 0.5 mg Documented by: [id number] Cefepime HCl (Maxipime) 2,000 mg in 20 mls @ 5 mls/min IV NOW STA Stop: 10/18/20 23:09 Last Admin: 10/18/20 23:42 Dose: 5 mls/min Documented by: [id number] Daptomycin 325 mg/ Syringe 6.5 mls @ 3.25 mls/min IV NOW ONE; Protocol Stop: 10/18/20 23:37 Last Admin: 10/19/20 00:00 Dose: 3.25 mls/min Documented by: [id number] Sodium Chloride (Nss 1000ml) 1,000 mls @ 999 mls/hr IV .Q1H1M ONE Stop: 10/19/20 00:36 Last Infusion: 10/19/20 00:38 Dose: 0 mls/hr Documented by: [id number] Admin: 10/18/20 23:41 Dose: 999 mls/hr Documented by: [id number] Medical Decision Making Differential Diagnosis Cellulitis, sepsis, abscess, DVT, postop complication, Covid, electrolyte or metabolic abnormality Medical Records Attestation: I reviewed the patient's medical records. Home Medications Current Medication List: was personally reviewed by me Laboratory Data Attestation: I reviewed the patient's lab results. Result diagrams: 10/18/20 23:10 10/18/20 23:10 Lab Results 10/18/20 10/18/20 10/18/20 Range/Units 23:10 23:10 23:10 WBC 17.29 H (4.8-10.8) K/uL RBC 4.44 (4.2-5.4) M/uL Hgb 12.1 (12.0-16.0) g/dL Hct 36.8 L (37-47) % MCV 82.9 (80-100) fL MCH 27.3 (25-34) pg MCHC 32.9 (32-36) g/dL RDW Std Deviation 48.2 H (36.4-46.3) fL RDW Coeff of Donavan 15.9 H (11.5-14.5) % Plt Count 253 (130-400) K/uL MPV 8.8 (7.4-10.4) fL Immature Gran % (Auto) 0.3 % Neut % (Auto) 91.8 % Lymph % (Auto) 5.8 % Forest % (Auto) 2.0 % Eos % (Auto) 0.0 % Baso % (Auto) 0.1 % Neut # (Auto) 15.87 H (1.4-6.5) K/uL Lymph # (Auto) 1.01 L (1.2-3.4) K/uL Forest # (Auto) 0.35 (0.11-0.59) K/uL Eos # (Auto) 0.00 (0-0.5) K/uL Baso # (Auto) 0.01 (0-0.2) K/uL Immature Gran # (Auto) 0.05 H (0.00-0.02) K/uL PT 10.8 (9.0-12.0) Seconds INR 1.0 (0.9-1.1) APTT 23.3 (21.0-31.0) Seconds PTT Ratio 0.8 Sodium 136 (136-145) mmol/L Potassium 3.9 (3.5-5.1) mmol/L Chloride 102 (98-107) mmol/L Carbon Dioxide 26 (21-32) mmol/L Anion Gap 8.0 (3-11) BUN 29 H (7-18) mg/dl Creatinine 1.12 (0.6-1.2) mg/dl Est Cr Clr Drug Dosing 32.2 ml/min Est GFR ( Amer) 54.1 Est GFR (Non-Af Amer) 46.7 BUN/Creatinine Ratio 26.3 H (10-20) Glucose 139 H (70-99) mg/dl Lactate (0.4-2.0) mmol/L Calcium 9.9 (8.5-10.1) mg/dl Magnesium 2.0 (1.8-2.4) mg/dl Total Bilirubin 0.4 (0.2-1) mg/dl AST 21 (15-37) U/L ALT 30 (12-78) U/L Alkaline Phosphatase 80 (45-117) U/L Total Protein 7.8 (6.4-8.2) gm/dl Albumin 3.7 (3.4-5.0) gm/dl Globulin 4.1 H (2.5-4.0) gm/dl Albumin/Globulin Ratio 0.9 (0.9-2) COVID-19 Eval Order SARS-CoV-2, RNA, NAAT (NEGATIVE) 10/18/20 10/18/20 10/18/20 Range/Units 23:10 23:36 23:36 WBC (4.8-10.8) K/uL RBC (4.2-5.4) M/uL Hgb (12.0-16.0) g/dL Hct (37-47) % MCV (80-100) fL MCH (25-34) pg MCHC (32-36) g/dL RDW Std Deviation (36.4-46.3) fL RDW Coeff of Donavan (11.5-14.5) % Plt Count (130-400) K/uL MPV (7.4-10.4) fL Immature Gran % (Auto) % Neut % (Auto) % Lymph % (Auto) % Forest % (Auto) % Eos % (Auto) % Baso % (Auto) % Neut # (Auto) (1.4-6.5) K/uL Lymph # (Auto) (1.2-3.4) K/uL Forest # (Auto) (0.11-0.59) K/uL Eos # (Auto) (0-0.5) K/uL Baso # (Auto) (0-0.2) K/uL Immature Gran # (Auto) (0.00-0.02) K/uL PT (9.0-12.0) Seconds INR (0.9-1.1) APTT (21.0-31.0) Seconds PTT Ratio Sodium (136-145) mmol/L Potassium (3.5-5.1) mmol/L Chloride (98-107) mmol/L Carbon Dioxide (21-32) mmol/L Anion Gap (3-11) BUN (7-18) mg/dl Creatinine (0.6-1.2) mg/dl Est Cr Clr Drug Dosing ml/min Est GFR ( Amer) Est GFR (Non-Af Amer) BUN/Creatinine Ratio (10-20) Glucose (70-99) mg/dl Lactate 1.3 (0.4-2.0) mmol/L Calcium (8.5-10.1) mg/dl Magnesium (1.8-2.4) mg/dl Total Bilirubin (0.2-1) mg/dl AST (15-37) U/L ALT (12-78) U/L Alkaline Phosphatase (45-117) U/L Total Protein (6.4-8.2) gm/dl Albumin (3.4-5.0) gm/dl Globulin (2.5-4.0) gm/dl Albumin/Globulin Ratio (0.9-2) COVID[facility]19 [facility]-2, RNA, NAAT NEGATIVE (NEGATIVE) Imaging Data Attestation: I personally reviewed and interpreted this imaging study as follows: My Impression: Chest x-rayno acute infiltrate, failure, pneumothorax seen MDM Narrative This patient comes in as described above she has cellulitis of her right arm she is had mastectomy there before she has had recurrent cellulitis. She has multiple allergies and I did review them in the chart she is had cefepime and daptomycin IV before I did order both of these. Blood work and blood culture cultures were obtained she did have an elevated white count 17. She did receive IV fluid bolus, she has been normotensive here. Her lactic acid was normal. She has no significant electrolyte or metabolic abnormalities. She did receive the IV antibiotics with both daptomycin and cefepime. Chest x-ray does not show congestive heart failure, pneumonia, or pneumothorax. I do think she needs to be admitted for IV antibiotics and further treatment. She has nothing on exam to suggest cellulitis or mastitis. I have consult Dr. Ca to see her in the ER for these measures. Continuous cardiac monitoring: Due to the patient's infection and concern for sepsis, an order was placed in the EMR for continuous cardiac monitoring. The patient was noted to be in normal sinus rhythm with a pulse of 90. 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, Cellulitis, S/P bilateral mastectomy Forms Stand Alone Forms: [employer] Prescriptions Prescriptions: No Action sertraline 25 mg tablet 25 mg PO DAILY RF: 0 montelukast 10 mg tablet 10 mg PO DAILY Qty: 90 RF: 3 docusate sodium 100 mg capsule 100 mg PO BID Qty: 180 RF: 3 omeprazole 20 mg capsule,delayed release(DR/EC) 20 mg PO BID Qty: 180 RF: 3 ondansetron HCl 4 mg tablet 4 mg PO Q8H PRN (Reason: nausea and vomiting) Qty: 90 RF: 0 diclofenac sodium 1 % gel 2 g TOPICAL QID PRN (Reason: arthralgia) Qty: 100 RF: 3 acetaminophen-codeine 300-30 mg tablet 1 - 2 tab PO Q6H PRN (Reason: Pain) Qty: 20 RF: 0 alprazolam 1 mg tablet 1 mg PO BID PRN (Reason: anxiety) Qty: 180 RF: 0 magnesium oxide 400 mg magnesium tablet 400 mg PO DAILY RF: 0 multivitamin [Daily Multi-Vitamin] Tablet 1 tab PO DAILY RF: 0 up4 Probiotics Women's 5 billion cell- 250 mg capsule 250 mg PO UD RF: 0 melatonin 10 mg tablet 10 mg PO HS PRN (Reason: Sleep) RF: 0 coenzyme Q10 10 mg capsule 10 mg PO BID RF: 0 amlodipine 5 mg tablet 5 mg PO DAILY Qty: 90 RF: 3 doxycycline hyclate 100 mg tablet 100 mg PO BID RF: 0 Discharge Problem: Cellulitis Qualifiers: Site of cellulitis: extremity Site of cellulitis of extremity: upper extremity Laterality: right Qualified Code(s): L03.113 - Cellulitis of right upper limb
[2020-10-18 23:38] LABS: Partial Thromboplastin Ratio 0.8; Partial Thromboplastin Time 23.3 Seconds (21.0-31.0); Prothrombin Time 10.8 Seconds (9.0-12.0)
[2020-10-18 23:42] LABS: Albumin Level 3.7 gm/dl (3.4-5.0); BUN Creatinine Ratio 26.3 (10-20); Calcium 9.9 mg/dl (8.5-10.1); Creatinine Clr Calc Pharmacy 32.2 ml/min; Est GFR (African American) 54.1; Est GFR (Non-African American) 46.7; Potassium 3.9 mmol/L (3.5-5.1)
[2020-10-18 23:45] LABS: Albumin Globulin Ratio 0.9 (0.9-2); Bilirubin,Total 0.4 mg/dl (0.2-1); Globulin 4.1 gm/dl (2.5-4.0); Total Protein 7.8 gm/dl (6.4-8.2)
[2020-10-19] MEDS ORDERED: ALPRAZolam 0.5 MG TABLET PO STA (00:05)
--- NOTE | 2020-10-19 00:52 | History & Physical Report ---
Date of Service October 19, 2020 Assessment & Plan (1) Right arm cellulitis: Secondary to underlying lymphedema associated with mastectomy- Continue daptomycin IV and cefepime IV begun in the ED Follow clinical examination Acetaminophen 650 mg p.o. every 6 hours as needed mild pain or temperature Present on Admission?: Yes (2) Anxiety: Anxiety and depression- Continue alprazolam 1 mg p.o. twice daily as needed, sertraline 25 mg daily and melatonin 10 mg p.o. at bedtime as needed Present on Admission?: Yes (3) Gastroesophageal reflux disease: Change omeprazole to pantoprazole Present on Admission?: Yes (4) Depression: See above Present on Admission?: Yes (5) Hypertension: Continue amlodipine 5 mg p.o. daily. Present on Admission?: Yes History of Present Illness Chief Complaint: The patient presents to the emergency department with complaint of worsening swelling, erythema, warmth and pain of right upper extremity that began 4 days ago. Primary Care Provider: Tip Byers MD The patient is a 80-year-old female with a past medical history including status post bilateral mastectomy, anxiety, right arm cellulitis, lymphedema, cellulitis of chest wall, urinary stress incontinence, solitary pulmonary nodule, restless leg syndrome, hyponatremia, hypokalemia, hyperlipidemia, hypercalcemia, GERD, anemia, impaired fasting glucose, hypertension, breast cancer and kidney stones. She presents with symptoms as noted above. Allergies Allergy/AdvReac Type Severity Reaction Status Date / Time tetanus toxoid, adsorbed Allergy Severe Anaphylaxis Verified 10/18/20 23:36 vancomycin Allergy Severe throat Verified 10/18/20 23:36 swelling Penicillins Allergy Intermediate Rash Verified 10/18/20 23:36 Sulfa (Sulfonamide Allergy Intermediate RASH Verified 10/18/20 23:36 Antibiotics) erythromycin base Allergy Unknown Unknown Verified 10/18/20 23:36 Avpdubs-Niw-Aug Reductase AdvReac Mild Leg cramps Verified 10/18/20 23:36 Inhibitor Home Medications Medication Instructions Recorded Confirmed Type montelukast 10 mg tablet 10 mg PO DAILY #90 tab 11/08/19 10/18/20 Rx coenzyme Q10 10 mg capsule 10 mg PO BID cap 11/27/19 10/18/20 History magnesium oxide 400 mg PO DAILY 12/03/19 10/18/20 History docusate sodium 100 mg capsule 100 mg PO BID #180 cap 12/18/19 10/18/20 Rx L.acid,gasseri,plant,rham-B.animalis-cran 250 mg PO UD 03/07/20 10/18/20 History 5 billion cell-250mg capsule melatonin 10 mg tablet 10 mg PO HS PRN 03/07/20 10/18/20 History multivitamin 1 tab PO DAILY 03/07/20 10/18/20 History sertraline 25 mg tablet 25 mg PO DAILY 03/10/20 10/18/20 History amlodipine 5 mg tablet 5 mg PO DAILY #90 tab 05/19/20 10/18/20 Rx omeprazole 20 mg capsule,delayed 20 mg PO BID #180 cap 06/03/20 10/18/20 Rx release diclofenac sodium 1 % topical gel 2 g TOPICAL QID PRN #100 g 08/20/20 10/18/20 Rx ondansetron HCl 4 mg tablet 4 mg PO Q8H PRN #90 tab 08/20/20 10/18/20 Rx acetaminophen 300 mg-codeine 30 mg 1 - 2 tab PO Q6H PRN #20 tab 08/29/20 10/18/20 Rx tablet alprazolam 1 mg tablet 1 mg PO BID PRN #180 tab 09/15/20 10/18/20 Rx doxycycline hyclate 100 mg PO BID 10/18/20 10/18/20 History Past Med/Surg History Medical History (Updated 10/19/20 @ 00:50 by Isaias De Anda MD) Allergic rhinitis Anemia Anxiety Atherosclerosis Breast cancer (06/22/13) "Abnormal right breast mammogram Status post ultrasound-guided biopsy 06/22/2013 revealing moderately differentiated invasive ductal carcinoma Estrogen receptor positive, progesterone receptor positive HER-2/ismael negative Status post left breast biopsy 07/13/2013 that was benign Status post bilateral mastectomies with sentinel lymph node biopsy, placement of tissue expanders Stage pT3 pN2 M0 Status post completion of systemic chemotherapy comprised of Adriamycin and Cytoxan followed with Taxol Status post completion of radiation therapy 05/16/2014 received 6120 cGy Status post placement of permanent implants" Breast cancer Carcinoma of upper-outer quadrant of right female breast Chronic interstitial cystitis Dehydration Depression Diverticulosis Dizziness Edema Gastroenteritis Gastroesophageal reflux disease Headache History of left knee replacement Hypercalcemia Hyperlipidemia Hypertension Hypokalemia Hypomagnesemia Hyponatremia Kidney stones Lymphedema Myalgia Nausea, vomiting and diarrhea Plantar fasciitis Restless legs syndrome Sacroiliitis Solitary pulmonary nodule Spondylosis Stress incontinence in female Surgical wound present Upper respiratory infection (~09/2014) Urinary tract infection Surgical History (Updated 10/19/20 @ 00:50 by Isaias De Anda MD) H/O bilateral mastectomy H/O colonoscopy H/O: hysterectomy History of bladder surgery S/P bilateral salpingo-oophorectomy S/P tonsillectomy S/P total abdominal hysterectomy S/P total knee arthroplasty Family History Other Breast cancer Denies family history of Ovarian cancer Prostate cancer Myocardial infarction Colorectal cancer Social History Smoking Status: Former smoker Second Hand Exposure: No; Hx Alcohol Use: Yes Alcohol type: beer and wine Hx Substance Use: No Preferred Language: Swedish Communication Ability: Effective Investigation Lieutenant Required: No Beliefs That Will Affect Care: None marital status: Current Living Situation: Spouse Current Living Situation Comment: current occupational status: retired Feels Safe at Home: Yes Safety Concerns: Feels Safe At This Time Assistive Devices: Glasses Review of Systems Review of Systems: The patient denies chest pain, palpitations, shortness of breath, dyspnea on exertion, cough, lower extremity swelling, sore throat, fevers, chills, sweats, weight change, fatigue, nausea, vomiting, diarrhea , constipation, abdominal pain, pelvic pain, blood in urine or stool, dysuria, urinary frequency or urgency, lightheadedness, dizziness, headache, memory loss, loss of consciousness, abnormal bruising or bleeding, imbalance, focal or generalized weakness, numbness or tingling in legs, generalized arthralgias or myalgias, back or neck pain, or night sweats. The review of systems is otherwise negative other than for that already noted above, and at least 10 systems have been reviewed. Physical Exam Physical Exam: The patient is awake, alert and oriented 3, well developed and well nourished, normocephalic and atraumatic, lying in bed and in no acute distress. HEENT--PERRL, EOMI, mucous membranes and oropharynx normal. Neck--supple. No JVD. No bruits. Thyroid normal, trachea midline, no adenopathy. Heart--normal S1 and S2. No murmurs, rubs or gallops. Lungs--clear bilaterally, no respiratory distress, no accessory muscle use. Abdomen--normal bowel sounds and soft. Nontender. Nondistended, no hernias or masses, no organomegaly. Extremities--normal lower extremity exam. --Right upper extremity with nonpitting edema, erythema and warmth from digits to shoulder Dermatologic--see above Neurologic--cranial nerves II through XII grossly intact. Rheumatologic--normal range of motion. Psychiatric--normal affect. Results & Data Results & Data ([facility]) Vital Signs (Past 12 Hours) Vital Signs Temp Pulse Pulse Resp BP BP Pulse Ox 10/19/20 00:06 92 H 18 149/86 H 96 10/18/20 23:15 89 18 98 10/18/20 22:41 98.4 F 113 H 18 138/79 92 Laboratory Results Laboratory Results WBC 17.29 K/uL (4.8-10.8) H 10/18/20 23:10 RBC 4.44 M/uL (4.2-5.4) 10/18/20 23:10 Hgb 12.1 g/dL (12.0-16.0) 10/18/20 23:10 Hct 36.8 % (37-47) L 10/18/20 23:10 MCV 82.9 fL (80-100) 10/18/20 23:10 MCH 27.3 pg (25-34) 10/18/20 23:10 MCHC 32.9 g/dL (32-36) 10/18/20 23:10 RDW Std Deviation 48.2 fL (36.4-46.3) H 10/18/20 23:10 RDW Coeff of Donavan 15.9 % (11.5-14.5) H 10/18/20 23:10 Plt Count 253 K/uL (130-400) 10/18/20 23:10 MPV 8.8 fL (7.4-10.4) 10/18/20 23:10 Immature Gran % (Auto) 0.3 % 10/18/20 23:10 Neut % (Auto) 91.8 % 10/18/20 23:10 Lymph % (Auto) 5.8 % 10/18/20 23:10 Mccormick % (Auto) 2.0 % 10/18/20 23:10 Eos % (Auto) 0.0 % 10/18/20 23:10 Baso % (Auto) 0.1 % 10/18/20 23:10 Neut # (Auto) 15.87 K/uL (1.4-6.5) H 10/18/20 23:10 Lymph # (Auto) 1.01 K/uL (1.2-3.4) L 10/18/20 23:10 Mccormick # (Auto) 0.35 K/uL (0.11-0.59) 10/18/20 23:10 Eos # (Auto) 0.00 K/uL (0-0.5) 10/18/20 23:10 Baso # (Auto) 0.01 K/uL (0-0.2) 10/18/20 23:10 Immature Gran # (Auto) 0.05 K/uL (0.00-0.02) H 10/18/20 23:10 PT 10.8 Seconds (9.0-12.0) 10/18/20 23:10 INR 1.0 (0.9-1.1) 10/18/20 23:10 APTT 23.3 Seconds (21.0-31.0) 10/18/20 23:10 PTT Ratio 0.8 10/18/20 23:10 Sodium 136 mmol/L (136-145) 10/18/20 23:10 Potassium 3.9 mmol/L (3.5-5.1) 10/18/20 23:10 Chloride 102 mmol/L (98-107) 10/18/20 23:10 Carbon Dioxide 26 mmol/L (21-32) 10/18/20 23:10 Anion Gap 8.0 (3-11) 10/18/20 23:10 BUN 29 mg/dl (7-18) H 10/18/20 23:10 Creatinine 1.12 mg/dl (0.6-1.2) 10/18/20 23:10 Est Cr Clr Drug Dosing 32.2 ml/min 10/18/20 23:10 Est GFR ( Amer) 54.1 10/18/20 23:10 Est GFR (Non-Af Amer) 46.7 10/18/20 23:10 BUN/Creatinine Ratio 26.3 (10-20) H 10/18/20 23:10 Glucose 139 mg/dl (70-99) H 10/18/20 23:10 Lactate 1.3 mmol/L (0.4-2.0) 10/18/20 23:10 Calcium 9.9 mg/dl (8.5-10.1) 10/18/20 23:10 Magnesium 2.0 mg/dl (1.8-2.4) 10/18/20 23:10 Total Bilirubin 0.4 mg/dl (0.2-1) 10/18/20 23:10 AST 21 U/L (15-37) 10/18/20 23:10 ALT 30 U/L (12-78) 10/18/20 23:10 Alkaline Phosphatase 80 U/L (45-117) 10/18/20 23:10 Total Protein 7.8 gm/dl (6.4-8.2) 10/18/20 23:10 Albumin 3.7 gm/dl (3.4-5.0) 10/18/20 23:10 Globulin 4.1 gm/dl (2.5-4.0) H 10/18/20 23:10 Albumin/Globulin Ratio 0.9 (0.9-2) 10/18/20 23:10 COVID-19 Eval Order Covid19 [facility] 10/18/20 23:36 SARS-CoV-2, RNA, NAAT NEGATIVE (NEGATIVE) 10/18/20 23:36 Code Status & VTE Plan Code Status Full code VTE Prophylaxis Plan VTE Prophylaxis will be ordered: Yes PG Care Time/CCT Total # of Minutes Spent Total Time Spent with Patient: Total time spent is greater than 50% in coordination of care (as documented) at patient's floor/unit and/or counseling patient: Coding Level of Care Code 09925 Initial Inpt Care Lvl 2 Diagnoses Right arm cellulitis L03.113 Anxiety F41.9 Gastroesophageal reflux disease K21.9 Depression F32.9 Hypertension I10
[2020-10-19] MEDS ORDERED: ONDANSETRON INJ 2 MG/ML 2 ML VIAL IV PRN (01:34)
[2020-10-19] MEDS ORDERED: MELATONIN 3 MG TAB PO PRN (01:58)
[2020-10-19] MEDS: MELATONIN 3 MG TAB PO PRN (02:07)
[2020-10-19] MEDS: DOCUSATE SODIUM 100 MG CAP PO SCH ×4 (02:29→20:26)
[2020-10-19 06:15] LABS: Appearance Urine Clear (Clear); Bacteria Urine Automated Negative (Negative); Bilirubin Urine Negative (Negative); Blood Urine Negative (Negative); Cast Urine Automated 0 /lpf (0-5); Color Urine Yellow; Glucose Urine UA Negative (Negative); Ketones Urine Negative (Negative); Leukocyte Esterase Urine Trace (Negative); Nitrite Urine Negative (Negative); Protein Urine Negative (Negative); RBC Urine Automated 0-4 /hpf (0-4); Specific Gravity Urine 1.015 (1.000-1.030); Urobilinogen Urine Negative (Negative)
[2020-10-19] MEDS: MULTIVITAMIN TAB PO SCH (07:52)
[2020-10-19] MEDS: amLODIPine BESYLATE 5 MG TAB PO SCH (07:52)
[2020-10-19] MEDS: MONTELUKAST SODIUM 10 MG TABLET PO SCH (07:52)
[2020-10-19] MEDS: SERTRALINE HCL 50 MG TABLET PO SCH ×2 (07:53→08:03)
[2020-10-19] MEDS: PANTOprazole 40 MG TAB PO SCH ×2 (07:54→20:26)
[2020-10-19] MEDS ORDERED: CEFEPIME 1,000 MG in SYRINGE 0 ML IV SCH (08:00)
[2020-10-19] MEDS: ACETAMINOPHEN 325 MG TAB PO PRN ×2 (08:02→19:29)
--- NOTE | 2020-10-19 08:51 | Hospitalist Progress Note ---
Date of Service October 19, 2020 Assessment & Plan (1) Right arm cellulitis: Italia Wadsworth is a 80 y/o F w/ hx of R breast cancer (s/p bilateral mastectomy, radiation therapy, and RUE lymphovenous bypass, and breast reconstruction), hx of recurrent RUE cellulitis, HTN, HLD, GERD who presents w/ 2 days of RUE swelling and erythema. Stable. Right upper extremity swelling - lymphedema vs cellulitis, less likely dvt (neg doppler), or chronic venous insufficiency (no varicose veins, less common in upper extremity only). - leukocytosis (17.29 10/18/20), elevated procalc (15.7 10/19/20) and crp (1.09 10/19/20) support infectious etiology e.g. cellulitis (less likely erysipelas based on appearance on physical exam. erythema is subtle). - no acute changes on CXR. 12/2019 normal echo EF 55-60. - may be exacerbation of chronic lymphedema associated with mastectomy - hx of recent overexertion of RUE - daptomycin IV and cefepime IV started in ED. cefepime IV d/c'd 10/19/20 because less likely gram neg infection even if cellulitis. review of prior RUE wound cultures grew MSSA. - 10/19/20 continuing empiric MRSA coverage because started during admission. cellulitis vs lymphedema not fully elucidated. Mild tenderness. Edema is moderate, erythema mild, faint dull red. may consider transitioning to MSSA coverage if inflammatory markers downtrend and RUE continues to clinically improve. Overall, patient's condition is good. No fever. Does not meet SIRS criteria. Clinically, appears well. 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 - using unfractionated heparin 5000u BID instead of Lovenox for dvt ppx - avoid nephrotoxins - daily bmp anxiety and depression Continue alprazolam 1 mg p.o. twice daily as needed, sertraline 25 mg daily and melatonin 10 mg p.o. at bedtime as needed GERD - continue PPI (pantoprazole instead of home omeprazole because of formulary) HTN Continue amlodipine 5 mg p.o. daily. FEN/GI: heart healthy. not on mIVF. dvt ppx: heparin sodium sq 5000u BID (starting 10/19/20 PM) code status: full dispo: med/surg. tentative dispo home ~10/21/20 (watching for improvement of RUE swelling/erythema, following inflammatory markers). (2) Anxiety: (3) Gastroesophageal reflux disease: (4) Depression: (5) Hypertension: (6) Leukocytosis: (7) CKD (chronic kidney disease), stage III: Admission and Anticipated Discharge Date Admission Date: October 19, 2020 Supervising Physician Co-Signing Physician Notes I personally examined the patient and verified all car points of history and exam, discussed case, and agree with decision making with Dr Martin. arm still swollen and painful, but maybe a little better, definitely not worse vitals noted nad heent nc at mmm. R arm diffusely ~2+ edema and erythema, moderately tender. no areas of fluctuance. R arm cellulitis and lymphedema -suspect swelling more impressive than infection alone would be causing due to poor lymphatic drainage. does have WBC elevation and overall clinical picture c/w infection, but swelling appears disproportionate to the severity of infectious parameters ---continue gram positive coverage. since she was on abx in last 90 days and because she's had purulence then - reasonable to cover for MRSA ---no clear need for gram negative coverage - will stop cefepime ---compression/elevation/supportive care ---home once improves further Subjective RUE swelling, erythema, and pain started 2 days ago (s/p changing bedsheets / lifting arm strenuously 3 days ago). Phoned her plastics doctor at [facility] and was advised to visit the ED. She has had multiple hosp admissions requiring IV abx for RUE cellulitis in past. S/p bilat mastectomy 6-7 yrs ago for R breast cancer (in remission per patient). Her right arm feels warm but she has not experienced fevers. Denies recent trauma to arm. She is not on anticoagulation at home or steroids. Former smoker, quit ~7 years ago. Denies etoh or other substances. Other than her right arm which is not bothering her too much, no complaints this morning. Has not needed Tylenol so far. - follows [facility] and [facility] oncology Review of Systems Review of Systems: Constitutional: Denies fever. + chills yesterday, resolved today Eyes: Denies blurry vision, vision changes ENT: Denies sore throat Cardiovascular: Denies chest pain, palpitations Respiratory: Denies shortness of breath Gastrointestinal: Denies abdominal pain,vomiting, constipation, diarrhea. no new nausea Genitourinary: Denies urinary symptoms including dysuria Musculoskeletal: Denies weakness Neurological: Denies headache, numbness, tingling, focal weakness Physical Exam Physical Exam: General: Grossly A&O. NAD. Cooperative. HEENT: Atraumatic, normocephalic. mild R neck ttp. Pulm: CTAB. -wheezes, -rales, -rhonchi. No respiratory distress. Cardiac: RRR, -mrg. no LE edema Abdominal: Nontender, nondistended, soft. Msk: Grossly moving RUE without difficulty. Integumentary: RUE is warmer to touch, swollen and mildly erythematous. Mild/minimal TTP. Results & Data Results & Data ([facility]) Vital Signs (Past 12 Hours) Vital Signs Temp Pulse Pulse Pulse Resp BP BP 10/19/20 07:40 37 C 80 16 142/72 H 10/19/20 01:53 36.9 C 95 H 16 146/85 H 10/19/20 00:06 92 H 18 149/86 H 10/18/20 23:15 89 18 10/18/20 22:41 36.9 C 113 H 18 138/79 Pulse Ox 10/19/20 07:40 92 10/19/20 01:53 96 10/19/20 00:06 96 10/18/20 23:15 98 10/18/20 22:41 92 Resident Activity Tracking Resident Involvement: Resident Care Provided Care Provided: Adult Hospital Medicine
--- NOTE | 2020-10-19 08:54 | XRay Report ---
SINGLE VIEW CHEST CLINICAL HISTORY: Sepsis. FINDINGS: An AP, portable, upright chest radiograph is compared to study dated 11/21/2019 and correlat ed with chest CT dated 01/04/2020. The examination is degraded by portable technique and apical lordot ic positioning. The cardiomediastinal silhouette is unremarkable noting atherosclerotic calcification of the thoracic aorta. The pulmonary vasculature is noncongested. Emphysema with chronic interstitia l thickening is similar to previous. There is mild bibasilar scarring/atelectasis. No airspace consol idation or large pleural effusion is identified. No pneumothorax is seen. The skeletal structures are osteopenic. The bony thorax is grossly intact. Surgical clips are present in the axilla bilaterally. IMPRESSION: Emphysematous change with no acute cardiopulmonary abnormality. ACT 112: Negative or not required by law. Electronically signed by: Rashid Jarvis M.D. 10/19/2020 8:53 AM
[2020-10-19] MEDS ORDERED: NON-FORMULARY MEDICATION (Coenzyme Q10 10 mg capsule) PO SCH (09:00)
[2020-10-19] MEDS ORDERED: CEFEPIME 1,000 MG in SYRINGE 0 ML IV ONE (10:00)
--- NOTE | 2020-10-19 12:18 | Ultrasound Report ---
ULTRASOUND RIGHT UPPER EXTREMITY VENOUS CLINICAL HISTORY: Right arm swelling and erythema. COMPARISON STUDY: Right upper extremity venous ultrasound dated 01/01/2020. TECHNIQUE: Real-time, grayscale, and color Doppler sonography of the deep veins of the right upper ex tremity is performed. Compression and augmentation were utilized. FINDINGS: There is no sonographic evidence of deep venous thrombosis identified in the right upper ex tremity. The right internal jugular, axillary, and brachial veins are patent and normally compressibl e. Normal venous waveforms and augmentation are seen within the right subclavian vein. The cephalic a nd basilic veins are clear. The visualized radial and ulnar veins are patent. Soft tissue edema is pr esent in the right upper extremity. IMPRESSION: There is no sonographic evidence of deep venous thrombosis identified in the right upper extremity. ACT 112: Negative or not required by law. Electronically signed by: Rashid Jarvis M.D. 10/19/2020 12:17 PM
[2020-10-19] MEDS: ALPRAZolam 0.5 MG TABLET PO PRN (12:50)
--- NOTE | 2020-10-19 16:02 | Billing Data ---
Date of Service October 19, 2020 Coding Level of Care Code 27342 Subseq Hosp Care Lvl 3
[2020-10-19] MEDS: HEPARIN SOD 5,000 UNIT/0.5 ML VIAL SQ SCH (20:26)
[2020-10-20] MEDS ORDERED: DAPTOmycin 225 MG in SYRINGE 0 ML IV SCH
[2020-10-20] MEDS: MELATONIN 3 MG TAB PO PRN (00:01)
[2020-10-20 00:21] VITALS: O2SAT 93
[2020-10-20 06:55] LABS: Hematocrit (blood only) 34.4 % (37-47); Hemoglobin 11.2 g/dL (12.0-16.0); Mean Corpuscular Hgb Conc 32.6 g/dL (32-36); Mean Corpuscular Volume 82.9 fL (80-100); Mean Platelet Volume 8.7 fL (7.4-10.4); Platelet Count 205 K/uL (130-400); RDW Coefficient of Variation 16.1 % (11.5-14.5); RDW Standard Deviation 49.5 fL (36.4-46.3); Red Blood Count 4.15 M/uL (4.2-5.4); White Blood Count 10.12 K/uL (4.8-10.8)
[2020-10-20 07:15] VITALS: BP 133/77; TEMP 98.2
[2020-10-20 07:48] LABS: BUN Creatinine Ratio 19.7 (10-20); C Reactive Protein 14.1 mg/dl (0-0.29); Calcium 9.7 mg/dl (8.5-10.1); Potassium 3.9 mmol/L (3.5-5.1)
[2020-10-20] MEDS: amLODIPine BESYLATE 5 MG TAB PO SCH (08:27)
[2020-10-20] MEDS: MULTIVITAMIN TAB PO SCH (08:27)
[2020-10-20] MEDS: PANTOprazole 40 MG TAB PO SCH (08:27)
[2020-10-20] MEDS: DOCUSATE SODIUM 100 MG CAP PO SCH (08:27)
[2020-10-20] MEDS: MONTELUKAST SODIUM 10 MG TABLET PO SCH (08:27)
[2020-10-20] MEDS: HEPARIN SOD 5,000 UNIT/0.5 ML VIAL SQ SCH ×2 (08:29→09:00)
[2020-10-20] MEDS: SERTRALINE HCL 50 MG TABLET PO SCH (08:29)
[2020-10-20] MEDS: ACETAMINOPHEN 325 MG TAB PO PRN (08:30)
[2020-10-20] MEDS ORDERED: CEFEPIME 2,000 MG in SYRINGE 0 ML IV SCH (10:00)
--- NOTE | 2020-10-20 14:58 | Discharge Summary ---
Date of Service October 20, 2020 Admission HPI Per Admitting Provider The patient is a 80-year-old female with a past medical history including status post bilateral mastectomy, anxiety, right arm cellulitis, lymphedema, cellulitis of chest wall, urinary stress incontinence, solitary pulmonary nodule, restless leg syndrome, hyponatremia, hypokalemia, hyperlipidemia, hypercalcemia, GERD, anemia, impaired fasting glucose, hypertension, breast cancer and kidney stones. She presents with symptoms as noted above. Admission Exam Per Admitting Provider The patient is awake, alert and oriented 3, well developed and well nourished, normocephalic and atraumatic, lying in bed and in no acute distress. HEENT--PERRL, EOMI, mucous membranes and oropharynx normal. Neck--supple. No JVD. No bruits. Thyroid normal, trachea midline, no adenopathy. Heart--normal S1 and S2. No murmurs, rubs or gallops. Lungs--clear bilaterally, no respiratory distress, no accessory muscle use. Abdomen--normal bowel sounds and soft. Nontender. Nondistended, no hernias or masses, no organomegaly. Extremities--normal lower extremity exam. --Right upper extremity with nonpitting edema, erythema and warmth from digits to shoulder Dermatologic--see above Neurologic--cranial nerves II through XII grossly intact. Rheumatologic--normal range of motion. Psychiatric--normal affect. Principal Diagnosis Right Upper Extremity Cellulitis Discharge Exam General: A+Ox4. NAD. Cooperative. HEENT: Atraumatic, normocephalic. Pulm: CTAB. -wheezes, -rales, -rhonchi. No respiratory distress. Cardiac: RRR, -mrg. no LE edema Abdominal: Nontender, nondistended, soft. Msk: Grossly moving RUE without difficulty. Integumentary: RUE is warm, significantly edematous and erythematous throughout. Minimal TTP. No red streaking or crepitus. No visible lacerations. Patient reports improvement from yesterday. Discharge Data Allergies Allergy/AdvReac Type Severity Reaction Status Date / Time tetanus toxoid, adsorbed Allergy Severe Anaphylaxis Verified 10/18/20 23:36 vancomycin Allergy Severe throat Verified 10/18/20 23:36 swelling Penicillins Allergy Intermediate Rash Verified 10/18/20 23:36 Sulfa (Sulfonamide Allergy Intermediate RASH Verified 10/18/20 23:36 Antibiotics) erythromycin base Allergy Unknown Unknown Verified 10/18/20 23:36 [id number] Reductase AdvReac Mild Leg cramps Verified 10/18/20 23:36 Inhibitor Consultations 10/19/20 00:04 ED Decision to Admit Stat Ordered Studies 10/19/20 11:14 US venous doppler UE RT Urgent Hospital Course (1) Right arm cellulitis: Italia Wadsworth is a 80 y/o F w/ hx of R breast cancer (s/p bilateral mastectomy, radiation therapy, and RUE lymphovenous bypass, and breast reconstruction), hx of recurrent RUE cellulitis, HTN, HLD, GERD who was admitted to [facility] on 10/19 for RUE cellulitis. Right upper extremity swelling - suspect cellulitis based on acute increase in warmth/swelling/redness in days leading up to admission. however likely component of lymphedema contributing to redness/swelling as well - daptomycin IV and cefepime IV started in ED --> transitioned to Dapto IV - tenderness/redness improved on exam as of 10/20, without signs/symptoms of sepsis - transitioned to Clindamycin 300mg PO QID x10 days on discharge - f/u with PCP in 1 week to determine if can d/c Clinda after 7 days - will speak with PCP if develops GI symptoms - continue to use PRN arm sleeve to assist with chronic swelling 2/2 lymphedema CKD3a - per review of 07/2020 and egfr this admission. - using unfractionated heparin 5000u BID instead of Lovenox for dvt ppx - avoid nephrotoxins - stable Cr at discharge anxiety and depression Continue alprazolam 1 mg p.o. twice daily as needed, sertraline 25 mg daily and melatonin 10 mg p.o. at bedtime as needed GERD - continue PPI (pantoprazole instead of home omeprazole because of formulary) HTN Continue amlodipine 5 mg p.o. daily. (2) Anxiety: (3) Gastroesophageal reflux disease: (4) Depression: (5) Hypertension: (6) Leukocytosis: (7) CKD (chronic kidney disease), stage III: Total Time Total Time Spent Total Time Spent (In Minutes): 30 minutes Total Time Includes: Examination of the Patient, Discharge Planning and Medication Reconciliation Discharge Plan Discharge Items Patient Disposition: Home - Self-Care Reason For Visit: RUE CELLULITIS Discharge Diagnosis: Right Upper Extremity Cellulitis Activity: Per Instructions section Non-emergency contact: Primary Care Provider Call non-emergency contact if: you have any medication questions, your symptoms worsen, your pain is worsening and you have a fever Follow-up/Referrals: Gerson Byers MD [Primary Care Provider] - Diet: Heart Healthy Addtl Attending Provider Instructions: You were admitted to [facility] on 10/19/2020 for a skin infection of your right arm (cellulitis). Of note, the swelling as well as some of the redness was thought to be due to chronic lymphedema, although your worsening symptoms are likely due to infection. You were initially started on two IV antibiotics for this infection (Daptomycin and Cefepime), and one of the antibiotics was subsequently stopped on 10/19. You did well on these medications, and on 10/20, you reported decreased tenderness of your right arm and slightly decreased redness as well. You will be discharged in improved condition on 10/20/2020. We will transition your IV antibiotic to an oral antibiotic called Clindamycin. You should take this medication 4 times per day for the next 10 days, starting tonight. You should also schedule a follow up appointment with Dr. Byers (your PCP) in one week to determine improvement in your symptoms and if you can stop taking the antibiotics at that time. You can continue to take all of your other home medications. You should try to continue to use your arm sleeve as tolerated in order to help with chronic lymphedema. Pending Studies at Discharge: No Stand-Alone Forms: My [facility], Smoking Cessation Medications and DC Order Prescriptions: New clindamycin HCl 300 mg capsule 300 mg PO Q6H 10 Days Qty: 40 RF: 0 Continued sertraline 25 mg tablet 25 mg PO DAILY RF: 0 montelukast 10 mg tablet 10 mg PO DAILY Qty: 90 RF: 3 docusate sodium 100 mg capsule 100 mg PO BID Qty: 180 RF: 3 omeprazole 20 mg capsule,delayed release(DR/EC) 20 mg PO BID Qty: 180 RF: 3 ondansetron HCl 4 mg tablet 4 mg PO Q8H PRN (Reason: nausea and vomiting) Qty: 90 RF: 0 diclofenac sodium 1 % gel 2 g TOPICAL QID PRN (Reason: arthralgia) Qty: 100 RF: 3 acetaminophen-codeine 300-30 mg tablet 1 - 2 tab PO Q6H PRN (Reason: Pain) Qty: 20 RF: 0 alprazolam 1 mg tablet 1 mg PO BID PRN (Reason: anxiety) Qty: 180 RF: 0 magnesium oxide 400 mg magnesium tablet 400 mg PO DAILY RF: 0 multivitamin [Daily Multi-Vitamin] Tablet 1 tab PO DAILY RF: 0 up4 Probiotics Women's 5 billion cell- 250 mg capsule 250 mg PO UD RF: 0 melatonin 10 mg tablet 10 mg PO HS PRN (Reason: Sleep) RF: 0 coenzyme Q10 10 mg capsule 10 mg PO BID RF: 0 amlodipine 5 mg tablet 5 mg PO DAILY Qty: 90 RF: 3 Discontinued doxycycline hyclate 100 mg tablet 100 mg PO BID RF: 0 Discharge Orders: Discharge Order (Routine); Ordered 10/20/20 Ordered By: Alan Mcallister/Other Patient Handouts: Clindamycin capsules Admission Data Admit Date/Time: 10/19/20 00:51 Attending Provider: Gerson Guzman Admit Provider: Sukhjinder Montilla Primary Care Provider: Gerson Byers Other Providers: Sukhjinder Montilla ; Erwin Martin Other Interventions: Discharge Summary Assessment (RN) Last Done: 10/20/20 15:14 Supervising Physician Co-Signing Physician Notes Attending attestation Pt seen and examined in concert with Dr. Peñaloza. In agreement with the documented findings as noted in the resident documentation with any exceptions or additions as noted here. Improving pain of RUE, though acute on chronic swelling and redness remain. On examination, S1/S2 nl RRR no MCG. CTAB. RUE with significant swelling, erythema and warmth subjectively improved TTP. Pulses and sensation distally intact. RUE cellulitis in the setting of lymphedema s/p breast cancer excision - transitioned to PO clindamycin (failed OP doxy, multiple allergies) to complete course. Precautions re: GI changes. Compression sleeve @ home. CKDIII - stable creatinine at discharge. Else see resident documentation as noted. Total attending time spent on day of discharge in the care of this patient: 35 minutes. Resident Activity Tracking Resident Involvement: Resident Care Provided Care Provided: Adult [facility] Medicine
[2020-10-20] MEDS: ALPRAZolam 0.5 MG TABLET PO PRN ×2 (15:02)
[2020-10-20 15:15] VITALS: PULSE 92
== END 2020-10-20 16:04 | disposition home or self-care (01) ==
LOC: ED 22:39 → SUATTDRO 10-19 00:51 → 3N 10-19 00:51 → INTOOBSV 10-19 00:51 → 3N 10-19 01:13

== ENCOUNTER 2022-07-16 18:38 | Inpatient (IN) ==
[2022-07-16] MEDS ORDERED: SODIUM CHLORIDE 0.9% 1000ML 1,000 ML IV ONE (19:01)
--- NOTE | 2022-07-16 19:37 | Emergency Department Note ---
Impression & Plan Hypoxia, Dizziness, COPD (chronic obstructive pulmonary disease), Dehydration ED Provider Note NAME: NABILA SCHILLING AGE: 82 SEX: F ARRIVES VIA: Walk-In INFORMANT: Patient ED PROVIDER(S): Kimani Liu MD CHIEF COMPLAINT: Dizziness, SOB PLAN: Disposition: Admit MEDICAL DECISION MAKING: The patient is a pleasant 82-year-old woman with a past medical history of breast cancer, hypertension, CKD, anxiety, hyperlipidemia, GERD, memory loss who presents to the emergency department accompanied by her son for evaluation of dizziness that has been ongoing for the past week where she was seen in urgent care and referred to the emergency department. She reports the symptoms are notable when she stands up quickly. She denies any similar symptoms recently. She denies any chest pain. She reports some mild increase shortness of breath from her baseline in the setting of COPD and reports mild congestion. She has any fevers, nausea, vomiting, diarrhea or urinary symptoms. On arrival patient is no acute distress, afebrile, BP 160s/97s and otherwise stable vital signs. She appears clinically dry. She has no focal neurologic deficits. She has a scant intermittent wheeze and lungs are otherwise clear. Orthostatic VS positive with HR increased 20+ BPM lying to standing. EKG without overt acute ischemia. CXR negative for acute cardiopulmonary process. WBC, H/H and platelets within normal limits. Chemistry without metabolic acidos is. Electrolytes and LFTs without significant abnormality. High-sensitivity troponin 11.1, within normal limits. TSH within normal limits. UA without convincing evidence of infection. COVID-19, influenza and RSV PCR were negative. CT of the head and CTA of the head and neck were performed and were negative for acute findings. Note is made of previously seen right apex scar tissue which appears increased in size but suspected to be related to scarring/radiation changes in the setting of the patient's prior history of breast cancer. The patient did reports improvement following IV fluid hydration as well as dexamethasone and DuoNeb., We had discussed plan for outpatient follow-up but unfortunately upon ambulatory trial with pulse ox she was noted to desaturate to the low 80s. Upon resting in bed she will recover to the low 90s but given her exertional hypoxia agreed to proceed with plan for admission for further management. Case was discussed with Dr. Kat, [facility] hospitalist who will evaluate the patient for admission. Triage Nursing notes reviewed and agree them. Prior medical records reviewed Vital Signs: reviewed and remarkable for hypertension, hypoxia. Differential diagnosis: Benign positional vertigo, dehydration, hypovolemia, anemia, tumor, infection, hypoglycemia, electrolyte abnormalities, cardiac sources, intracerebral event, toxicologic, neurologic, as well as other pathologies. ER treatment provided: See below. Diagnostics interpreted by me: ECG: Sinus rhythm with first-degree AV block, 75 bpm, no ectopy, no overt ST elevation or depression, QTC 46, QRS 80. Cardiac Monitoring: An order for continuous cardiac monitoring was placed and demonstrated Sinus rhythm with first-degree AV block, 75 bpm, no ectopy. Laboratory studies: See below Imaging studies: See below Consultation(s): [facility]. HPI: The patient is a pleasant 82-year-old woman with a past medical history of breast cancer, hypertension, CKD, anxiety, hyperlipidemia, GERD, memory loss who presents to the emergency department accompanied by her son for evaluation of dizziness that has been ongoing for the past week where she was seen in urgent care and referred to the emergency department. She reports the symptoms are notable when she stands up quickly. She denies any similar symptoms recently. She denies any chest pain. She reports some mild increase shortness of breath from her baseline in the setting of COPD and reports mild congestion. She has any fevers, nausea, vomiting, diarrhea or urinary symptoms. ROS: See above HPI for pertinent positives & negatives. A total of 10 systems reviewed and were otherwise negative. VITALS:See Below PHYSICAL EXAMINATION: GENERAL: Awake, alert, fatigued-appearing, in no distress HENT: Normocephalic, atraumatic. Oropharynx with dry mucous membranes and otherwise unremarkable. EYES: Normal conjunctiva. Sclera non-icteric. NECK: Supple. No nuchal rigidity. FROM. No JVD. RESPIRATORY: Bilateral wheezes CARDIAC: Regular rate, normal rhythm. Extremities warm and well perfused. Pulses equal. ABDOMEN: Soft, non-distended. No tenderness to palpation. No rebound or guarding . No masses. RECTAL: Deferred. MUSCULOSKELETAL: Chest examination reveals no tenderness. The back is symmetrical on inspection without obvious abnormality. There is no CVA tenderness to palpation. No joint edema. LOWER EXTREMITIES: Calves are equal size bilaterally and non-tender. No edema. No discoloration. NEURO: Normal sensorium. No sensory or motor deficits noted. 5/5 strength and SILT x 4 extremities. Cerebellar function intact including [id number], alternating palms, [id number]. SKIN: No rash or jaundice noted. Kimani Liu MD Past Med/Surg History Medical History Anemia Anxiety Arthritis Gastroesophageal reflux disease History of breast cancer "Abnormal right breast mammogram Status post ultrasound-guided biopsy 06/22/2013 revealing moderately differentiated invasive ductal carcinoma SURGERY/CHEMO AND RADIATION History of kidney stones Hyperlipidemia Hypertension Restless legs syndrome Right arm cellulitis REASON FOR ANTIBIOTIC Solitary pulmonary nodule Spondylosis Surgical History H/O bilateral mastectomy H/O colonoscopy History of anesthesia reaction HALLUCINATION History of bilateral tubal ligation History of bladder surgery BLADDER TACK DURING HYSTERECTOMY History of cataract surgery RT/LEFT History of hysterectomy History of left knee replacement History of lithotripsy History of tooth extraction History of vascular access device A PORT INSERTION AND REMOVAL Hx of cosmetic plastic surgery BREAST IMPLANTS POST BILAT. MASTECTOMY (REQUIRED TO BE REMOVED D/T INFECTION) S/P tonsillectomy Family History Daughter Family history of diabetes mellitus Brother Family history of diabetes mellitus Other Breast cancer No family history of adverse response to anesthesia Denies family history of Ovarian cancer Prostate cancer Coronary heart disease Myocardial infarction Colorectal cancer Social History Smoking Status: Current every day smoker Tobacco Type: Cigarettes Second Hand Exposure: Yes ("SELDOM"); Tobacco Cessation Education Requested by Patient: No Hx Alcohol Use: Yes Alcohol type: other Hx Substance Use: No Preferred Language: [place] Communication Ability: Effective Hearing Ability: Normal Sample Mounter Required: No Beliefs That Will Affect Care: None marital status: Current Living Situation: Spouse Current Living Situation Comment: lives with 93 year old current occupational status: retired Other Information That Helps Us Care for You: No Feels Safe at Home: Yes Safety Concerns: Feels Safe At This Time caffeine: No Dental Care, Regularly: Yes Physical Activity Frequency: Does not Exercise Seatbelt Use: always Sunscreen Use: No Assistive Devices: Cane and Walker Allergies Allergies Allergy/AdvReac Type Severity Reaction Status Date / Time tetanus toxoid, adsorbed Allergy Severe Anaphylaxis Verified 07/16/22 20:34 vancomycin Allergy Severe throat Verified 07/16/22 20:34 swelling Penicillins Allergy Intermediate Rash Verified 07/16/22 20:34 erythromycin base Allergy Mild Rash Verified 07/16/22 20:34 Sulfa (Sulfonamide Allergy Mild RASH Verified 07/16/22 20:34 Antibiotics) [id number] Reductase AdvReac Mild Leg cramps Verified 07/16/22 20:34 Inhibitor [Kpymqfo-Odj-Aym Reductase Inhibitor] Home Meds Home Medications Medication Instructions Recorded Confirmed magnesium oxide 400 mg PO DAILY 12/03/19 07/16/22 melatonin 10 mg tablet 10 mg PO HS PRN Sleep 03/07/20 07/16/22 amoxicillin 500 mg capsule 2,000 mg PO DIRECTED PRN PRIOR 07/16/22 07/16/22 TO DENTAL APPT. fluticasone propionate 50 2 spray intranasal DAILY 07/16/22 07/16/22 mcg/actuation nasal spray,suspension triamcinolone acetonide 0.025 % 1 applic topical .COMPLEX PRN Skin 07/16/22 07/16/22 topical cream Irritation Previous Rx's Medication Instructions Recorded omeprazole 20 mg capsule,delayed 20 mg PO BID #180 caps 06/03/20 release diclofenac sodium 1 % topical gel 2 g topical QID PRN arthralgia 10/21/20 #100 grams alprazolam 1 mg tablet 1 mg PO BID PRN anxiety #180 tabs 04/27/21 amlodipine 5 mg tablet 5 mg PO DAILY #90 tabs 05/11/21 ondansetron HCl 4 mg tablet 4 mg PO Q8H PRN nausea and 06/12/21 vomiting #90 tabs docusate sodium 100 mg capsule 100 mg PO BID #180 caps 03/09/22 albuterol sulfate 90 mcg/actuation 2 inh inhalation Q6H PRN shortness 05/28/22 aerosol inhaler (Proventil HFA) of breath or wheezing #8.5 grams Results & Data (ED) Vital Signs Vital Signs - 24 hr 07/16/22 18:41 07/16/22 19:47 07/16/22 19:40 Temperature 36.5 C Temperature Source Oral Pulse Rate - Lying 63 Pulse Rate - Sitting 71 Pulse Rate - Standing 89 Pulse Rate 91 H 82 Pulse Rate [Exercises] Pulse Rate [Recovery] Pulse Rate [Resting] Pulse Rate from SpO2 Sensor 83 Pulse Rhythm Regular Pulse Strength Normal Respiratory Rate 20 20 Respiratory Rate [Exercises] Respiratory Rate [Recovery] Respiratory Rate [Resting] Respiratory Effort / Characteristics Non-Labored Spontaneous Respiratory Depth Normal Respiratory Pattern Regular Blood Pressure - Lying 162/89 H Blood Pressure - Sitting 167/90 H Blood Pressure- Standing 152/98 H Blood Pressure 168/97 H Blood Pressure Mean 120 Pulse Oximetry 93 93 Pulse Oximetry [Exercises] Pulse Oximetry [Recovery] Pulse Oximetry [Resting] Oxygen Delivery Method Room Air Room Air Sepsis Recent Fever Within 48 Hours No Sepsis New/Unexplained Change in Mental Status No Sepsis Action Taken by Nursing No Action Required 07/16/22 20:30 07/16/22 21:00 07/16/22 21:30 Temperature Temperature Source Pulse Rate - Lying Pulse Rate - Sitting Pulse Rate - Standing Pulse Rate 69 62 56 L Pulse Rate [Exercises] Pulse Rate [Recovery] Pulse Rate [Resting] Pulse Rate from SpO2 Sensor 68 61 61 Pulse Rhythm Pulse Strength Respiratory Rate 15 14 16 Respiratory Rate [Exercises] Respiratory Rate [Recovery] Respiratory Rate [Resting] Respiratory Effort / Characteristics Respiratory Depth Respiratory Pattern Blood Pressure - Lying Blood Pressure - Sitting Blood Pressure- Standing Blood Pressure 182/98 H 179/95 H 181/86 H Blood Pressure Mean 126 123 117 Pulse Oximetry 94 95 94 Pulse Oximetry [Exercises] Pulse Oximetry [Recovery] Pulse Oximetry [Resting] Oxygen Delivery Method Room Air Room Air Room Air Sepsis Recent Fever Within 48 Hours Sepsis New/Unexplained Change in Mental Status Sepsis Action Taken by Nursing 07/16/22 23:20 07/16/22 22:30 07/17/22 00:00 Temperature Temperature Source Pulse Rate - Lying Pulse Rate - Sitting Pulse Rate - Standing Pulse Rate Pulse Rate [Exercises] 86 Pulse Rate [Recovery] 82 Pulse Rate [Resting] 92 H Pulse Rate from SpO2 Sensor 79 69 Pulse Rhythm Pulse Strength Respiratory Rate Respiratory Rate [Exercises] 22 Respiratory Rate [Recovery] 22 Respiratory Rate [Resting] 20 Respiratory Effort / Characteristics Respiratory Depth Respiratory Pattern Blood Pressure - Lying Blood Pressure - Sitting Blood Pressure- Standing Blood Pressure 174/100 H 175/93 H Blood Pressure Mean 124 120 Pulse Oximetry 100 90 Pulse Oximetry [Exercises] 84 L Pulse Oximetry [Recovery] 88 L Pulse Oximetry [Resting] 75 L Oxygen Delivery Method Room Air Room Air Room Air Sepsis Recent Fever Within 48 Hours Sepsis New/Unexplained Change in Mental Status Sepsis Action Taken by Nursing Laboratory Data Result diagrams: 07/16/22 19:28 07/16/22 19:28 Lab Results 07/16/22 07/16/22 07/16/22 Range/Units 19:28 19:28 19:28 WBC 8.97 (4.8-10.8) K/ul RBC 4.82 (3.93-5.22) M/uL Hgb 14.2 (12.0-16.0) g/dl Hct 40.9 (34.1-44.9) % MCV 84.9 (80.0-100.0) fL MCH 29.5 (25.0-34.0) pg MCHC 34.7 (32.0-36.0) g/dL RDW Std Deviation 52.7 H (36.4-46.3) fL RDW Coeff of [place] 17.2 H (11.5-14.5) % Plt Count 282 (130-400) K/uL MPV 8.9 L (9.4-12.3) fL Immature Gran % (Auto) 0.4 % Neut % (Auto) 76.4 % Lymph % (Auto) 14.3 % Valley % (Auto) 6.1 % Eos % (Auto) 1.8 % Baso % (Auto) 1.0 % Neut # (Auto) 6.85 H (1.4-6.5) K/uL Lymph # (Auto) 1.28 (1.2-3.4) K/uL Valley # (Auto) 0.55 (0.24-0.82) K/uL Eos # (Auto) 0.16 (0-0.50) K/uL Baso # (Auto) 0.09 (0-0.2) K/uL Immature Gran # (Auto) 0.04 H (0.00-0.02) K/uL APTT PTT Ratio ABG pH (7.35-7.45) ABG pCO2 (35-46) mmHg ABG pO2 (80-95) mmHg ABG HCO3 (19-24) mmol/L ABG O2 Saturation (90-95) % ABG Base Excess (-9-1.8) mEq/L Yusuf Test (Pos) Oxygen Given Sodium 132 L (136-145) mmol/L Potassium 3.8 (3.5-5.1) mmol/L Chloride 95 L (98-107) mmol/L Carbon Dioxide 28 (21-32) mmol/L Anion Gap 9 (3-11) BUN 17 (6-23) mg/dl Creatinine 0.67 (0.6-1.2) mg/dl Est Cr Clr Drug Dosing 49.9 ml/min Est GFR ( Amer) 95.5 ml/min Est GFR (Non-Af Amer) 82.4 ml/min BUN/Creatinine Ratio 25.4 H (10-20) Glucose 83 (70-99(Fasting)) mg/dl Calcium 10.2 H (8.5-10.1) mg/dl Phosphorus 3.6 (2.5-4.9) mg/dl Magnesium 1.9 (1.7-2.4) mg/dl Total Bilirubin 0.5 (0.2-1.0) mg/dl AST 17 (13-39) U/L ALT 15 (7-52) U/L Alkaline Phosphatase 84 (34-104) U/L Troponin I High Sens 11.1 (0-14) pg/ml Total Protein 7.4 (6.0-8.3) gm/dl Albumin 4.1 (3.4-5.0) gm/dl Globulin 3.3 (2.5-4.0) gm/dl Albumin/Globulin Ratio 1.2 (0.9-2) TSH 3.312 (0.300-4.500) uIu/ml Urine Color Urine Appearance (Clear) Urine pH (4.5-7.5) Ur Specific [place] (1.000-1.030) Urine Protein (Negative) Urine Glucose (UA) (Negative) Urine Ketones (Negative) Urine Blood (Negative) Urine Nitrite (Negative) Urine Bilirubin (Negative) Urine Urobilinogen (Negative) Ur Leukocyte Esterase (Negative) Urine WBC (Auto) (0-5) /hpf Urine RBC (Auto) (0-4) /hpf U Hyaline Cast (Auto) (0-5) /lpf U Epithel Cells (Auto) (0-5) /lpf Urine Bacteria (Auto) (Negative) SARS-CoV-2 (PCR) (Negative) Influenza Type A (PCR) (Neg) Influenza Type B (PCR) (Neg) RSV (RT-PCR) (Neg) 07/16/22 07/16/22 07/17/22 Range/Units 19:31 20:01 00:14 WBC (4.8-10.8) K/ul RBC (3.93-5.22) M/uL Hgb (12.0-16.0) g/dl Hct (34.1-44.9) % MCV (80.0-100.0) fL MCH (25.0-34.0) pg MCHC (32.0-36.0) g/dL RDW Std Deviation (36.4-46.3) fL RDW Coeff of [place] (11.5-14.5) % Plt Count (130-400) K/uL MPV (9.4-12.3) fL Immature Gran % (Auto) % Neut % (Auto) % Lymph % (Auto) % Valley % (Auto) % Eos % (Auto) % Baso % (Auto) % Neut # (Auto) (1.4-6.5) K/uL Lymph # (Auto) (1.2-3.4) K/uL Valley # (Auto) (0.24-0.82) K/uL Eos # (Auto) (0-0.50) K/uL Baso # (Auto) (0-0.2) K/uL Immature Gran # (Auto) (0.00-0.02) K/uL APTT PTT Ratio ABG pH 7.46 H (7.35-7.45) ABG pCO2 40 (35-46) mmHg ABG pO2 70 L (80-95) mmHg ABG HCO3 28 H (19-24) mmol/L ABG O2 Saturation 96.1 H (90-95) % ABG Base Excess 4.2 H (-9-1.8) mEq/L Yusuf Test Pos (Pos) Oxygen Given RA Sodium (136-145) mmol/L Potassium (3.5-5.1) mmol/L Chloride (98-107) mmol/L Carbon Dioxide (21-32) mmol/L Anion Gap (3-11) BUN (6-23) mg/dl Creatinine (0.6-1.2) mg/dl Est Cr Clr Drug Dosing ml/min Est GFR ( Amer) ml/min Est GFR (Non-Af Amer) ml/min BUN/Creatinine Ratio (10-20) Glucose (70-99(Fasting)) mg/dl Calcium (8.5-10.1) mg/dl Phosphorus (2.5-4.9) mg/dl Magnesium (1.7-2.4) mg/dl Total Bilirubin (0.2-1.0) mg/dl AST (13-39) U/L ALT (7-52) U/L Alkaline Phosphatase (34-104) U/L Troponin I High Sens (0-14) pg/ml Total Protein (6.0-8.3) gm/dl Albumin (3.4-5.0) gm/dl Globulin (2.5-4.0) gm/dl Albumin/Globulin Ratio (0.9-2) TSH (0.300-4.500) uIu/ml Urine Color Yellow Urine Appearance Clear (Clear) Urine pH 7.0 (4.5-7.5) Ur Specific [place] 1.009 (1.000-1.030) Urine Protein Trace H (Negative) Urine Glucose (UA) Negative (Negative) Urine Ketones Negative (Negative) Urine Blood Negative (Negative) Urine Nitrite Negative (Negative) Urine Bilirubin Negative (Negative) Urine Urobilinogen Negative (Negative) Ur Leukocyte Esterase Negative (Negative) Urine WBC (Auto) 1-5 (0-5) /hpf Urine RBC (Auto) 0-4 (0-4) /hpf U Hyaline Cast (Auto) 0 (0-5) /lpf U Epithel Cells (Auto) 0-5 (0-5) /lpf Urine Bacteria (Auto) Negative (Negative) SARS-CoV-2 (PCR) NEGATIVE (Negative) Influenza Type A (PCR) Negative (Neg) Influenza Type B (PCR) Negative (Neg) RSV (RT-PCR) Negative (Neg) 07/17/22 Range/Units 00:14 WBC (4.8-10.8) K/ul RBC (3.93-5.22) M/uL Hgb (12.0-16.0) g/dl Hct (34.1-44.9) % MCV (80.0-100.0) fL MCH (25.0-34.0) pg MCHC (32.0-36.0) g/dL RDW Std Deviation (36.4-46.3) fL RDW Coeff of [place] (11.5-14.5) % Plt Count (130-400) K/uL MPV (9.4-12.3) fL Immature Gran % (Auto) % Neut % (Auto) % Lymph % (Auto) % Valley % (Auto) % Eos % (Auto) % Baso % (Auto) % Neut # (Auto) (1.4-6.5) K/uL Lymph # (Auto) (1.2-3.4) K/uL Valley # (Auto) (0.24-0.82) K/uL Eos # (Auto) (0-0.50) K/uL Baso # (Auto) (0-0.2) K/uL Immature Gran # (Auto) (0.00-0.02) K/uL APTT Cancelled PTT Ratio Cancelled ABG pH (7.35-7.45) ABG pCO2 (35-46) mmHg ABG pO2 (80-95) mmHg ABG HCO3 (19-24) mmol/L ABG O2 Saturation (90-95) % ABG Base Excess (-9-1.8) mEq/L Yusuf Test (Pos) Oxygen Given Sodium (136-145) mmol/L Potassium (3.5-5.1) mmol/L Chloride (98-107) mmol/L Carbon Dioxide (21-32) mmol/L Anion Gap (3-11) BUN (6-23) mg/dl Creatinine (0.6-1.2) mg/dl Est Cr Clr Drug Dosing ml/min Est GFR ( Amer) ml/min Est GFR (Non-Af Amer) ml/min BUN/Creatinine Ratio (10-20) Glucose (70-99(Fasting)) mg/dl Calcium (8.5-10.1) mg/dl Phosphorus (2.5-4.9) mg/dl Magnesium (1.7-2.4) mg/dl Total Bilirubin (0.2-1.0) mg/dl AST (13-39) U/L ALT (7-52) U/L Alkaline Phosphatase (34-104) U/L Troponin I High Sens (0-14) pg/ml Total Protein (6.0-8.3) gm/dl Albumin (3.4-5.0) gm/dl Globulin (2.5-4.0) gm/dl Albumin/Globulin Ratio (0.9-2) TSH (0.300-4.500) uIu/ml Urine Color Urine Appearance (Clear) Urine pH (4.5-7.5) Ur Specific [place] (1.000-1.030) Urine Protein (Negative) Urine Glucose (UA) (Negative) Urine Ketones (Negative) Urine Blood (Negative) Urine Nitrite (Negative) Urine Bilirubin (Negative) Urine Urobilinogen (Negative) Ur Leukocyte Esterase (Negative) Urine WBC (Auto) (0-5) /hpf Urine RBC (Auto) (0-4) /hpf U Hyaline Cast (Auto) (0-5) /lpf U Epithel Cells (Auto) (0-5) /lpf Urine Bacteria (Auto) (Negative) SARS-CoV-2 (PCR) (Negative) Influenza Type A (PCR) (Neg) Influenza Type B (PCR) (Neg) RSV (RT-PCR) (Neg) Administered Medications Lactated Ringer's (Lr) 1,000 mls @ 60 mls/hr IV .[id number] STA Stop: 07/17/22 17:32 Last Admin: 07/17/22 01:26 Dose: 60 mls/hr Documented By: Discontinued Medications Albuterol (Albut/Ipratrop 3mg/0.5mg Neb 3 Ml Vial) 3 ml NEB NOW STA; Protocol Stop: 07/16/22 22:01 Last Admin: 07/16/22 22:13 Dose: 3 ml Documented By: Alprazolam (Alprazolam 0.5 Mg Tablet) 0.5 mg PO NOW STA Stop: 07/17/22 00:44 Last Admin: 07/17/22 01:15 Dose: 0.5 mg Documented By: Amlodipine Besylate (Amlodipine Besylate 5 Mg Tab) 2.5 mg PO NOW STA Stop: 07/17/22 00:10 Last Admin: 07/17/22 01:15 Dose: 2.5 mg Documented By: Dexamethasone Sodium Phosphate (DexamethasonePf 10 Mg/Ml Vial) 10 mg IV NOW ONE Stop: 07/16/22 22:01 Last Admin: 07/16/22 22:08 Dose: 10 mg Documented By: Doxycycline Hyclate (Doxycycline Hyclate 100 Mg Cap) 100 mg PO NOW STA Stop: 07/16/22 23:22 Last Admin: 07/17/22 00:08 Dose: 100 mg Documented By: Guaifenesin (Guaifenesin 600 Mg Tabcr) 600 mg PO NOW STA Stop: 07/16/22 22:01 Last Admin: 07/16/22 22:08 Dose: 600 mg Documented By: Sodium Chloride (Nss 1000ml) 1,000 mls @ 999 mls/hr IV .Q1H1M ONE Stop: 07/16/22 20:01 Last Infusion: 07/16/22 21:40 Dose: 0 mls/hr Documented By: Admin: 07/16/22 20:18 Dose: 999 mls/hr Documented By: Magnesium Sulfate/Dextrose (Magnesium Sulfate / D5w) 1 gm in 100 mls @ 50 mls/hr IV ONE STA Stop: 07/17/22 02:08 Last Admin: 07/17/22 01:26 Dose: 50 mls/hr Documented By: Imaging Data Radiologist's Impression: Chest X-Ray 07/16/22 19:01 SINGLE VIEW CHEST CLINICAL HISTORY: Dizziness. FINDINGS: An AP, portable, upright chest radiograph is compared to chest x-ray and chest CT dated 05/28/2022. The cardiomediastinal silhouette is top normal for projection noting atherosclerotic calcification of the thoracic aorta. Emphysema and chronic interstitial thickening is similar to previous. Foci of parenchymal scarring are seen throughout both lungs. No airspace consolidation or large pleural effusion is identified. No pneumothorax is seen. The skeletal structures are osteopenic. Again seen is a comminuted fracture of the right proximal humerus with displaced fragments. Surgical clips project over the axilla bilaterally. IMPRESSION: Emphysematous change with no acute cardiopulmonary abnormality identified. ACT 112: Negative or not required by law. Electronically signed by: Rashid Jarvis M.D. 07/16/2022 7:[address] 07/16/22 19:[address] OF THE BRAIN; CT ANGIOGRAM OF THE BRAIN; CT ANGIOGRAM OF THE NECK CLINICAL HISTORY: Dizziness. COMPARISON STUDY: CT of the brain dated 05/28/2022. Chest CT dated 01/04/2020. TECHNIQUE: Unenhanced axial CT scan of the brain is performed. Subsequently, following the IV administration of 111 of Optiray 320, CT angiogram of the head and neck was performed from the aortic arch to the vertex. Images are reviewed in the axial, sagittal, and coronal planes. 3-D MIPS images are created and assessed. IV contrast was administered without complication. All measurements were calculated based on NASCET criteria. A dose lowering technique was utilized adhering to the principles of ALARA. CT DOSE: 1013.22 mGy.cm FINDINGS: Brain parenchyma: There is age-related involutional change noting mild subcortical and periventricular microangiopathic disease. There is no hemorrhage, mass effect, or evidence of acute territorial ischemia by CT criteria. There is no evidence of enhancing mass lesion on the angiogram phase images. The ventricles, sulci, and cisterns are prominent secondary to involutional change. Lazar-white matter differentiation is preserved. No extra- axial fluid collection is seen. Thoracic aorta: There is atherosclerotic calcification of the thoracic aorta. Visualized portions of the thoracic aorta are normal in caliber. The aortic arch demonstrates standard 3-vessel anatomy. Right carotid arterial system: The right common carotid artery is widely patent, as are the right internal and external carotid arteries. Calcified plaque is noted in the carotid bulb. Left carotid arterial system: The left common carotid artery is widely patent, as are the left internal and external carotid arteries. Calcified plaque is noted in the carotid bulb. Vertebral arteries: The vertebral arteries are patent bilaterally Left-sided dominance. Subclavian arteries: The subclavian arteries are patent bilaterally noting atherosclerotic plaque and irregularity. There is moderate stenosis of the right axillary artery seen on image #76. Intracranial vasculature: There is atherosclerotic calcification of the cavernous carotid and vertebral arteries. The internal carotid arteries are patent at the skull base, as are the anterior and middle cerebral arteries bilaterally. There is a left posterior communicating artery. The vertebrobasilar system and posterior cerebral arteries are widely patent. The left vertebral artery is dominant. There is no aneurysm, high-grade stenosis, or focal vessel cut off seen throughout the intracranial circulation. Jugular veins: Patent bilaterally. Dural sinuses: Patent. Lung apices: Emphysematous change is noted. A subpleural opacity at the lateral right apex measures approximately 3.7 x 1.6 cm. Soft tissues: The visualized pharyngeal soft tissues are normal in appearance noting angiographic phase technique. The oropharyngeal airway appears widely patent. The thyroid gland is heterogeneous. The salivary glands are normal in appearance. No cervical lymphadenopathy is seen. Skeletal structures: The skeletal structures are osteopenic. The calvarium appears intact. The cervical spine is maintained noting multilevel spondylosis. No lytic or blastic lesion is seen. Orbits: The bony orbits are intact. Orbital contents are normal as visualized no ting bilateral ocular lens implants. Sinuses and mastoids: The paranasal sinuses are clear. The mastoid air cells are well pneumatized. IMPRESSION: 1. There is no hemorrhage, mass effect, or evidence of acute territorial ischemia by CT criteria. 2. Unremarkable CT angiogram of the brain. 3. Unremarkable CT angiogram of the neck. 4. 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 5. Emphysema. 6. There is a 3.7 cm subpleural opacity at the lateral right apex. This likely represents scarring/fibrosis, but this has increased from a [address] Underlying neoplasm would be impossible to exclude. Outpatient follow-up with pulmonology is recommended for further evaluation/workup. ACT 112: Positive. There are findings on this exam that require communication between the performing entity and the patient following Patient Test Result Information Act ([place] Act 112) guidelines. Electronically signed by: Rashid Jarvis M.D. 07/16/2022 10:25 PM Head CTA 07/16/22 19:[address] OF THE BRAIN; CT ANGIOGRAM OF THE BRAIN; CT ANGIOGRAM OF THE NECK CLINICAL HISTORY: Dizziness. COMPARISON STUDY: CT of the brain dated 05/28/2022. Chest CT dated 01/04/2020. TECHNIQUE: Unenhanced axial CT scan of the brain is performed. Subsequently, following the IV administration of 111 of Optiray 320, CT angiogram of the head and neck was performed from the aortic arch to the vertex. Images are reviewed in the axial, sagittal, and coronal planes. 3-D MIPS images are created and assessed. IV contrast was administered without complication. All measurements were calculated based on NASCET criteria. A dose lowering technique was utilized adhering to the principles of ALARA. CT DOSE: 1013.22 mGy.cm FINDINGS: Brain parenchyma: There is age-related involutional change noting mild subcortical and periventricular microangiopathic disease. There is no hemorrhage, mass effect, or evidence of acute territorial ischemia by CT criteria. There is no evidence of enhancing mass lesion on the angiogram phase images. The ventricles, sulci, and cisterns are prominent secondary to involutional change. Lazar-white matter differentiation is preserved. No extra- axial fluid collection is seen. Thoracic aorta: There is atherosclerotic calcification of the thoracic aorta. Visualized portions of the thoracic aorta are normal in caliber. The aortic arch demonstrates standard 3-vessel anatomy. Right carotid arterial system: The right common carotid artery is widely patent, as are the right internal and external carotid arteries. Calcified plaque is noted in the carotid bulb. Left carotid arterial system: The left common carotid artery is widely patent, as are the left internal and external carotid arteries. Calcified plaque is noted in the carotid bulb. Vertebral arteries: The vertebral arteries are patent bilaterally Left-sided dominance. Subclavian arteries: The subclavian arteries are patent bilaterally noting atherosclerotic plaque and irregularity. There is moderate stenosis of the right axillary artery seen on image #76. Intracranial vasculature: There is atherosclerotic calcification of the cavernous carotid and vertebral arteries. The internal carotid arteries are patent at the skull base, as are the anterior and middle cerebral arteries bilaterally. There is a left posterior communicating artery. The vertebrobasilar system and posterior cerebral arteries are widely patent. The left vertebral artery is dominant. There is no aneurysm, high-grade stenosis, or focal vessel cut off seen throughout the intracranial circulation. Jugular veins: Patent bilaterally. Dural sinuses: Patent. Lung apices: Emphysematous change is noted. A subpleural opacity at the lateral right apex measures approximately 3.7 x 1.6 cm. Soft tissues: The visualized pharyngeal soft tissues are normal in appearance noting angiographic phase technique. The oropharyngeal airway appears widely patent. The thyroid gland is heterogeneous. The salivary glands are normal in appearance. No cervical lymphadenopathy is seen. Skeletal structures: The skeletal structures are osteopenic. The calvarium appears intact. The cervical spine is maintained noting multilevel spondylosis. No lytic or blastic lesion is seen. Orbits: The bony orbits are intact. Orbital contents are normal as visualized noting bilateral ocular lens implants. Sinuses and mastoids: The paranasal sinuses are clear. The mastoid air cells are well pneumatized. IMPRESSION: 1. There is no hemorrhage, mass effect, or evidence of acute territorial ischemia by CT criteria. 2. Unremarkable CT angiogram of the brain. 3. Unremarkable CT angiogram of the neck. 4. 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 5. Emphysema. 6. There is a 3.7 cm subpleural opacity at the lateral right apex. This likely represents scarring/fibrosis, but this has increased from a [address] Underlying neoplasm would be impossible to exclude. Outpatient follow-up with pulmonology is recommended for further evaluation/workup. ACT 112: Positive. There are findings on this exam that require communication between the performing entity and the patient following Patient Test Result Information Act ([place] Act 112) guidelines. Electronically signed by: Rashid Jarvis M.D. 07/16/2022 10:25 PM Neck CTA 07/16/22 19:[address] OF THE BRAIN; CT ANGIOGRAM OF THE BRAIN; CT ANGIOGRAM OF THE NECK CLINICAL HISTORY: Dizziness. COMPARISON STUDY: CT of the brain dated 05/28/2022. Chest CT dated 01/04/2020. TECHNIQUE: Unenhanced axial CT scan of the brain is performed. Subsequently, following the IV administration of 111 of Optiray 320, CT angiogram of the head and neck was performed from the aortic arch to the vertex. Images are reviewed in the axial, sagittal, and coronal planes. 3-D MIPS images are created and assessed. IV contrast was administered without complication. All measurements w ere calculated based on NASCET criteria. A dose lowering technique was utilized adhering to the principles of ALARA. CT DOSE: 1013.22 mGy.cm FINDINGS: Brain parenchyma: There is age-related involutional change noting mild subcortical and periventricular microangiopathic disease. There is no hemorrhage, mass effect, or evidence of acute territorial ischemia by CT criteria. There is no evidence of enhancing mass lesion on the angiogram phase images. The ventricles, sulci, and cisterns are prominent secondary to involu tional change. Lazar-white matter differentiation is preserved. No extra-axial fluid collection is seen. Thoracic aorta: There is atherosclerotic calcification of the thoracic aorta. Visualized portions of the thoracic aorta are normal in caliber. The aortic arch demonstrates standard 3-vessel anatomy. Right carotid arterial system: The right common carotid artery is widely patent, as are the right internal and external carotid arteries. Calcified plaque is noted in the carotid bulb. Left carotid arterial system: The left common carotid artery is widely patent, as are the left internal and external carotid arteries. Calcified plaque is noted in the carotid bulb. Vertebral arteries: The vertebral arteries are patent bilaterally Left-sided dominance. Subclavian arteries: The subclavian arteries are patent bilaterally noting atherosclerotic plaque and irregularity. There is moderate stenosis of the right axillary artery seen on image #76. Intracranial vasculature: There is atherosclerotic calcification of the cavernous carotid and vertebral arteries. The internal carotid arteries are patent at the skull base, as are the anterior and middle cerebral arteries bilaterally. There is a left posterior communicating artery. The vertebrobasilar system and posterior cerebral arteries are widely patent. The left vertebral ar lenny is dominant. There is no aneurysm, high-grade stenosis, or focal vessel cut off seen throughout the intracranial circulation. Jugular veins: Patent bilaterally. Dural sinuses: Patent. Lung apices: Emphysematous change is noted. A subpleural opacity at the lateral right apex measures approximately 3.7 x 1.6 cm. Soft tissues: The visualized pharyngeal soft tissues are normal in appearance n oting angiographic phase technique. The oropharyngeal airway appears widely patent. The thyroid gland is heterogeneous. The salivary glands are normal in appearance. No cervical lymphadenopathy is seen. Skeletal structures: The skeletal structures are osteopenic. The calvarium appears intact. The cervical spine is maintained noting multilevel spondylosis. No lytic or blastic lesion is seen. Orbits: The bony orbits are intact. Orbital contents are normal as visualized noting bilateral ocular lens implants. Sinuses and mastoids: The paranasal sinuses are clear. The mastoid air cells are well pneumatized. IMPRESSION: 1. There is no hemorrhage, mass effect, or evidence of acute territorial ischemia by CT criteria. 2. Unremarkable CT angiogram of the brain. 3. Unremarkable CT angiogram of the neck. 4. 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 5. Emphysema. 6. There is a 3.7 cm subpleural opacity at the lateral right apex. This likely represents scarring/fibrosis, but this has increased from a [address] Underlying neoplasm would be impossible to exclude. Outpatient follow-up with pulmonology is recommended for further evaluation/workup. ACT 112: Positive. There are findings on this exam that require communication between the performing entity and the patient following Patient Test Result Information Act ([place] Act 112) guidelines. Electronically signed by: Rashid Jarvis M.D. 07/16/2022 10:25 PM Discharge Plan Visit Data Chief Complaint: Dizziness Stated Complaint: DIZZY, REF BY ED Provider: Kimani Liu Discharge Problem: Hypoxia, Dizziness, COPD (chronic obstructive pulmonary disease), Dehydration Patient Disposition: Admitted As Inpatient Condition: Good Discharge Instructions Interventions: ED Discharge Assessment Last Done: 07/17/22 01:48
[2022-07-16 19:46] LABS: Basophils # (auto) 0.09 K/uL (0-0.2); Eosinophils # (auto) 0.16 K/uL (0-0.50); Eosinophils % (auto) 1.8 %; Hematocrit (blood only) 40.9 % (34.1-44.9); Hemoglobin 14.2 g/dl (12.0-16.0); Immature Granulocytes # (auto) 0.04 K/uL (0.00-0.02); Immature Granulocytes % (auto) 0.4 %; Lymphocytes # (auto) 1.28 K/uL (1.2-3.4); Lymphocytes % (auto) 14.3 %; Mean Corpuscular Hemoglobin 29.5 pg (25.0-34.0); Mean Corpuscular Hgb Conc 34.7 g/dL (32.0-36.0); Mean Corpuscular Volume 84.9 fL (80.0-100.0); Mean Platelet Volume 8.9 fL (9.4-12.3); Monocytes # (auto) 0.55 K/uL (0.24-0.82); Monocytes % (auto) 6.1 %; Neutrophils # (auto) 6.85 K/uL (1.4-6.5); Neutrophils % (auto) 76.4 %; Platelet Count 282 K/uL (130-400); RDW Coefficient of Variation 17.2 % (11.5-14.5); RDW Standard Deviation 52.7 fL (36.4-46.3); Red Blood Count 4.82 M/uL (3.93-5.22); White Blood Count 8.97 K/ul (4.8-10.8)
--- NOTE | 2022-07-16 19:52 | XRay Report ---
SINGLE VIEW CHEST CLINICAL HISTORY: Dizziness. FINDINGS: An AP, portable, upright chest radiograph is compared to chest x-ray and chest CT dated 05/28. The cardiomediastinal silhouette is top normal for projection noting atherosclerotic calcifica tion of the thoracic aorta. Emphysema and chronic interstitial thickening is similar to previous. Foc i of parenchymal scarring are seen throughout both lungs. No airspace consolidation or large pleural effusion is identified. No pneumothorax is seen. The skeletal structures are osteopenic. Again seen i s a comminuted fracture of the right proximal humerus with displaced fragments. Surgical clips projec t over the axilla bilaterally. IMPRESSION: Emphysematous change with no acute cardiopulmonary abnormality identified. ACT 112: Negative or not required by law. Electronically signed by: Rashid Jarvis M.D. 07/16/2022 7:50 PM
[2022-07-16 20:13] LABS: Albumin Globulin Ratio 1.2 (0.9-2); Albumin Level 4.1 gm/dl (3.4-5.0); BUN Creatinine Ratio 25.4 (10-20); Bilirubin,Total 0.5 mg/dl (0.2-1.0); Calcium 10.2 mg/dl (8.5-10.1); Creatinine Clr Calc Pharmacy 49.9 ml/min; Est GFR (African American) 95.5 ml/min; Est GFR (Non-African American) 82.4 ml/min; Globulin 3.3 gm/dl (2.5-4.0); Magnesium 1.9 mg/dl (1.7-2.4); Phosphorus 3.6 mg/dl (2.5-4.9); Potassium 3.8 mmol/L (3.5-5.1); Total Protein 7.4 gm/dl (6.0-8.3); Troponin I High Sensitivity 11.1 pg/ml (0-14)
[2022-07-16 20:27] LABS: Influenza A virus by PCR Negative (Neg); Influenza B virus by PCR Negative (Neg); RSV by PCR Negative (Neg); SARS CoV2 RNA(COVID-19) InHosp NEGATIVE (Negative)
[2022-07-16 21:09] LABS: Appearance Urine Clear (Clear); Bacteria Urine Automated Negative (Negative); Bilirubin Urine Negative (Negative); Blood Urine Negative (Negative); Cast Urine Automated 0 /lpf (0-5); Color Urine Yellow; Epithelial Cell Urine Auto 0-5 /lpf (0-5); Glucose Urine UA Negative (Negative); Ketones Urine Negative (Negative); Leukocyte Esterase Urine Negative (Negative); Nitrite Urine Negative (Negative); Protein Urine Trace (Negative); RBC Urine Automated 0-4 /hpf (0-4); Specific Gravity Urine 1.009 (1.000-1.030); Urobilinogen Urine Negative (Negative)
[2022-07-16] MEDS ORDERED: guaiFENesin 600 MG TABCR PO STA (22:00)
[2022-07-16] MEDS ORDERED: ALBUT/IPRATROP 3MG/0.5MG NEB 3 ML VIAL NEB STA (22:00)
[2022-07-16] MEDS ORDERED: dexAMETHasone**PF** 10 MG/ML VIAL IV ONE (22:00)
--- NOTE | 2022-07-16 22:26 | CT Scan Report ---
UNENHANCED CT OF THE BRAIN; CT ANGIOGRAM OF THE BRAIN; CT ANGIOGRAM OF THE NECK CLINICAL HISTORY: Dizziness. COMPARISON STUDY: CT of the brain dated 05/28/2022. Chest CT dated 01/04/2020. TECHNIQUE: Unenhanced axial CT scan of the brain is performed. Subsequently, following the IV adminis tration of 111 of Optiray 320, CT angiogram of the head and neck was performed from the aortic arch t o the vertex. Images are reviewed in the axial, sagittal, and coronal planes. 3-D MIPS images are cre ated and assessed. IV contrast was administered without complication. All measurements were calculate d based on NASCET criteria. A dose lowering technique was utilized adhering to the principles of ALA RA. CT DOSE: 1013.22 mGy.cm FINDINGS: Brain parenchyma: There is age-related involutional change noting mild subcortical and periventricula r microangiopathic disease. There is no hemorrhage, mass effect, or evidence of acute territorial isc hemia by CT criteria. There is no evidence of enhancing mass lesion on the angiogram phase images. Th e ventricles, sulci, and cisterns are prominent secondary to involutional change. Lazar-white matter d ifferentiation is preserved. No extra-axial fluid collection is seen. Thoracic aorta: There is atherosclerotic calcification of the thoracic aorta. Visualized portions of the thoracic aorta are normal in caliber. The aortic arch demonstrates standard 3-vessel anatomy. Right carotid arterial system: The right common carotid artery is widely patent, as are the right int ernal and external carotid arteries. Calcified plaque is noted in the carotid bulb. Left carotid arterial system: The left common carotid artery is widely patent, as are the left information technology intern al and external carotid arteries. Calcified plaque is noted in the carotid bulb. Vertebral arteries: The vertebral arteries are patent bilaterally Left-sided dominance. Subclavian arteries: The subclavian arteries are patent bilaterally noting atherosclerotic plaque and irregularity. There is moderate stenosis of the right axillary artery seen on image #76. Intracranial vasculature: There is atherosclerotic calcification of the cavernous carotid and vertebr al arteries. The internal carotid arteries are patent at the skull base, as are the anterior and midd le cerebral arteries bilaterally. There is a left posterior communicating artery. The vertebrobasilar system and posterior cerebral arteries are widely patent. The left vertebral artery is dominant. The re is no aneurysm, high-grade stenosis, or focal vessel cut off seen throughout the intracranial circ ulation. Jugular veins: Patent bilaterally. Dural sinuses: Patent. Lung apices: Emphysematous change is noted. A subpleural opacity at the lateral right apex measures a pproximately 3.7 x 1.6 cm. Soft tissues: The visualized pharyngeal soft tissues are normal in appearance noting angiographic pha se technique. The oropharyngeal airway appears widely patent. The thyroid gland is heterogeneous. The salivary glands are normal in appearance. No cervical lymphadenopathy is seen. Skeletal structures: The skeletal structures are osteopenic. The calvarium appears intact. The cervic al spine is maintained noting multilevel spondylosis. No lytic or blastic lesion is seen. Orbits: The bony orbits are intact. Orbital contents are normal as visualized noting bilateral ocular lens implants. Sinuses and mastoids: The paranasal sinuses are clear. The mastoid air cells are well pneumatized. IMPRESSION: 1. There is no hemorrhage, mass effect, or evidence of acute territorial ischemia by CT criteria. 2. Unremarkable CT angiogram of the brain. 3. Unremarkable CT angiogram of the neck. 4. 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 5. Emphysema. 6. There is a 3.7 cm subpleural opacity at the lateral right apex. This likely represents scarring/fi brosis, but this has increased from a [address] Underlying neoplasm would be impossible to exclu de. Outpatient follow-up with pulmonology is recommended for further evaluation/workup. ACT 112: Positive. There are findings on this exam that require communication between the performing entity and the patient following Patient Test Result Information Act ([place] Act 112) guidelines. Electronically signed by: Rashid Jarvis M.D. 07/16/2022 10:25 PM
[2022-07-16] MEDS ORDERED: DOXYCYCLINE HYCLATE 100 MG CAP PO STA (23:21)
[2022-07-17] MEDS ORDERED: MAGNESIUM SULFATE / D5W 1 GM/100 ML BAG IV STA (00:09)
[2022-07-17] MEDS ORDERED: amLODIPine BESYLATE 5 MG TAB PO STA (00:09)
[2022-07-17] MEDS ORDERED: ALPRAZolam 0.5 MG TABLET PO STA (00:43)
--- NOTE | 2022-07-17 00:45 | History & Physical Report ---
Date of Service July 17, 2022 Assessment & Plan (1) Acute hypoxemic respiratory failure: Plan: Transient hypoxemic respiratory failure during ambulation without unusual exertional SOB symptoms as per patient Secondary to COPD Doubt acute exacerbation Dizziness secondary to uncontrolled hypertension Multifactorial ? Compliance, family has concerns about patient's ability to take home medications, possible functional disability Anxiety contributory Hyponatremia, possibly chronic, noted on outpatient testing the last few months hyperlipidemia/statin intolerance breast cancer status post surgery/chemoradiation, in remission Right SPN, some enlargement noted on imaging from comparison images from the last few months history memory impairment ambulatory dysfunction ongoing tobacco abuse Medical telemetry Supplemental O2 as needed Baseline ABG Titrate amlodipine Anxiolytic as needed Outpatient Pulmonology referral for COPD and pulmonary nodule PT OT eval Nicotine gum as needed DVT prophylaxis. Heparin subcu Full code Patient daughter requesting updates from providers. Roxi Bridger, contact #[phone]. Text document was generated using [employer] voice recognition software. It may contain grammatical or spelling errors. Kindly contact undersigned for clarification of any documentation item in question. History of Present Illness Chief Complaint: Dizziness Primary Care Provider: Ladarius Dudley MD History obtained from patient, family, and records. Medical history significant for hypertension, hyperlipidemia/statin intolerance, COPD, breast cancer status post surgery/chemoradiation, pulmonary nodule, GERD, anxiety disorder, history memory impairment, ambulatory dysfunction, ongoing tobacco abuse. Last confinement September 2020 for RUE cellulitis. Patient has not been well the last few months as per daughter. Dizziness described as lightheadedness, not spinning as per patient. Patient somewhat off balanced when walking as per daughter. History of fall about 6 months ago with right humeral fracture and possible head trauma. Did not need surgery or confinement as per daughter. Patient somewhat more anxious and sad given limited ability to move around since injury. Patient denies suicidality. Last ER visit last month for generalized weakness. With cough and shortness of breath symptoms. Patient discharged on prednisone and steroid course for COPD exacerbation. Patient family communicated concerns about patient's mental status, f orgetfulness at home to PCP following ER visit. Family worried about patient possibly not taking her medications. 1 week history of dizziness symptoms described as lightheadedness and feeling a little out of balance. Not spinning as per patient. No unusual headache symptoms. Not worse with movement. Usual cough symptoms, shortness of breath on exertion as per patient. No chest pain. Patient started smoking again as per daughter. Patient more anxious than usual as per daughter Patient brought to urgent care center yesterday. Patient directed to ER for further evaluation. Patient given Decadron, doxycycline, neb treatment for possible COPD exacerbation. SBP 190s at the highest during ER stay. Transient hypoxemia O2 sats 70s to 80s on ambulation at the ER. Patient denies unusual shortness of breath symptoms. Medical History as above Surgical History : Hysterectomy, BTL, bladder tuck, cataract surgery, left knee surgery, lithotripsy, dental surgery, a port surgery, bilateral mastectomy, breast implant placement and removal, tonsillectomy Family History : DM, breast cancer Personal/Social history : Few cigarettes from time to time, occasional EtOH intake, homemaker in her younger years, lives with Allergies Allergy/AdvReac Type Severity Reaction Status Date / Time tetanus toxoid, adsorbed Allergy Severe Anaphylaxis Verified 07/16/22 20:34 vancomycin Allergy Severe throat Verified 07/16/22 20:34 swelling Penicillins Allergy Intermediate Rash Verified 07/16/22 20:34 erythromycin base Allergy Mild Rash Verified 07/16/22 20:34 Sulfa (Sulfonamide Allergy Mild RASH Verified 07/16/22 20:34 Antibiotics) Tpccfsy-BWM-KiI Reductase AdvReac Mild Leg cramps Verified 07/16/22 20:34 Inhibitor [Wmcsrsu-Wce-Sbq Reductase Inhibitor] Home Medications Medication Instructions Recorded Confirmed Type magnesium oxide 400 mg PO DAILY 12/03/19 07/16/22 History melatonin 10 mg tablet 10 mg PO HS PRN Sleep 03/07/20 07/16/22 History omeprazole 20 mg capsule,delayed 20 mg PO BID #180 caps 06/03/20 07/16/22 Rx release diclofenac sodium 1 % topical gel 2 g topical QID PRN arthralgia 10/21/20 07/16/22 Rx #100 grams alprazolam 1 mg tablet 1 mg PO BID PRN anxiety #180 tabs 04/27/21 07/16/22 Rx amlodipine 5 mg tablet 5 mg PO DAILY #90 tabs 05/11/21 07/16/22 Rx ondansetron HCl 4 mg tablet 4 mg PO Q8H PRN nausea and 06/12/21 07/16/22 Rx vomiting #90 tabs docusate sodium 100 mg capsule 100 mg PO BID #180 caps 03/09/22 07/16/22 Rx albuterol sulfate 90 mcg/actuation 2 inh inhalation Q6H PRN shortness 05/28/22 07/16/22 Rx aerosol inhaler (Proventil HFA) of breath or wheezing #8.5 grams amoxicillin 500 mg capsule 2,000 mg PO DIRECTED PRN PRIOR 07/16/22 07/16/22 History TO DENTAL APPT. fluticasone propionate 50 2 spray intranasal DAILY 07/16/22 07/16/22 History mcg/actuation nasal spray,suspension triamcinolone acetonide 0.025 % 1 applic topical .COMPLEX PRN Skin 07/16/22 07/16/22 History topical cream Irritation Past Med/Surg History Medical History Anemia Anxiety Arthritis Gastroesophageal reflux disease History of breast cancer "Abnormal right breast mammogram Status post ultrasound-guided biopsy 06/22/2013 revealing moderately differentiated invasive ductal carcinoma SURGERY/CHEMO AND RADIATION History of kidney stones Hyperlipidemia Hypertension Restless legs syndrome Right arm cellulitis REASON FOR ANTIBIOTIC Solitary pulmonary nodule Spondylosis Surgical History H/O bilateral mastectomy H/O colonoscopy History of anesthesia reaction HALLUCINATION History of bilateral tubal ligation History of bladder surgery BLADDER TACK DURING HYSTERECTOMY History of cataract surgery RT/LEFT History of hysterectomy History of left knee replacement History of lithotripsy History of tooth extraction History of vascular access device A PORT INSERTION AND REMOVAL Hx of cosmetic plastic surgery BREAST IMPLANTS POST BILAT. MASTECTOMY (REQUIRED TO BE REMOVED D/T INFECTION) S/P tonsillectomy Family History Daughter Family history of diabetes mellitus Brother Family history of diabetes mellitus Other Breast cancer No family history of adverse response to anesthesia Denies family history of Ovarian cancer Prostate cancer Coronary heart disease Myocardial infarction Colorectal cancer Social History Smoking Status: Current every day smoker Tobacco Type: Cigarettes Second Hand Exposure: Yes ("SELDOM"); Tobacco Cessation Education Requested by Patient: No Hx Alcohol Use: Yes Alcohol type: other Hx Substance Use: No Preferred Language: [place] Communication Ability: Effective Hearing Ability: Normal Manager Technical Sales Required: No Beliefs That Will Affect Care: None marital status: Current Living Situation: Spouse Current Living Situation Comment: lives with 93 year old current occupational status: retired Other Information That Helps Us Care for You: No Feels Safe at Home: Yes Safety Concerns: Feels Safe At This Time caffeine: No Dental Care, Regularly: Yes Physical Activity Frequency: Does not Exercise Seatbelt Use: always Sunscreen Use: No Assistive Devices: Cane and Walker Review of Systems Review of Systems: As per HPI, all other systems reviewed and negative Physical Exam Physical Exam: GENERAL: Slightly anxious, pleasant, no respiratory distress SKIN: Normal color, warm HEENT: [place] palpebral conjunctivae, no ptosis, dry buccal mucosa, nasal cannula in place NECK : Supple, no tenderness CHEST : Decreased breath sounds, no wheezes, no tenderness HEART : RRR, no obvious murmurs ABDOMEN: no distention, nontender EXTREMITIES : No LE swelling/tenderness, no other conspicuous deformities noted NEUROLOGIC : Coherent, no facial asymmetry, gait and stance not assessed Results & Data Results & Data ([facility]) Vital Signs (Past 12 Hours) Vital Signs Temp Pulse Pulse Pulse Pulse Resp Resp 07/16/22 22:30 07/16/22 23:20 86 82 92 H 22 07/16/22 21:30 56 L 16 07/16/22 21:00 62 14 07/16/22 20:30 69 15 07/16/22 19:40 82 20 07/16/22 18:41 36.5 C 91 H 20 Resp Resp BP Pulse Ox Pulse Ox Pulse Ox Pulse Ox 07/16/22 22:30 174/100 H 100 07/16/22 23:20 22 20 84 L 88 L 75 L 07/16/22 21:30 181/86 H 94 07/16/22 21:00 179/95 H 95 07/16/22 20:30 182/98 H 94 07/16/22 19:40 93 07/16/22 18:41 168/97 H 93 O2 Del Method 07/16/22 22:30 Room Air 07/16/22 23:20 Room Air 07/16/22 21:30 Room Air 07/16/22 21:00 Room Air 07/16/22 20:30 Room Air 07/16/22 19:40 Room Air 07/16/22 18:41 Room Air Laboratory Results Laboratory Results WBC 8.97 K/ul (4.8-10.8) 07/16/22: RBC 4.82 M/uL (3.93-5.22) 07/16/22: Hgb 14.2 g/dl (12.0-16.0) 07/16/22: Hct 40.9 % (34.1-44.9) 07/16/22: MCV 84.9 fL (80.0-100.0) 07/16/22: MCH 29.5 pg (25.0-34.0) 07/16/22: MCHC 34.7 g/dL (32.0-36.0) 07/16/22: RDW Std Deviation 52.7 fL (36.4-46.3) H 07/16/22: RDW Coeff of [place] 17.2 % (11.5-14.5) H 07/16/22: Plt Count 282 K/uL (130-400) 07/16/22: MPV 8.9 fL (9.4-12.3) L 07/16/22: Immature Gran % (Auto) 0.4 % 07/16/22: Neut % (Auto) 76.4 % 07/16/22: Lymph % (Auto) 14.3 % 07/16/22: [place] % (Auto) 6.1 % 07/16/22: Eos % (Auto) 1.8 % 07/16/22: Baso % (Auto) 1.0 % 07/16/22: Neut # (Auto) 6.85 K/uL (1.4-6.5) H 07/16/22: Lymph # (Auto) 1.28 K/uL (1.2-3.4) 07/16/22: [place] # (Auto) 0.55 K/uL (0.24-0.82) 07/16/22: Eos # (Auto) 0.16 K/uL (0-0.50) 07/16/22: Baso # (Auto) 0.09 K/uL (0-0.2) 07/16/22: Immature Gran # (Auto) 0.04 K/uL (0.00-0.02) H 07/16/22 19: Sodium 132 mmol/L (136-145) L 07/16/22 19: Potassium 3.8 mmol/L (3.5-5.1) 07/16/22 19: Chloride 95 mmol/L (98-107) L 07/16/22: Carbon Dioxide 28 mmol/L (21-32) 07/16/22: Anion Gap 9 (3-11) 07/16/22 19: BUN 17 mg/dl (6-23) 07/16/22 19: Creatinine 0.67 mg/dl (0.6-1.2) 07/16/22: Est Cr Clr Drug Dosing 49.9 ml/min 07/16/22 19: Est GFR ( Amer) 95.5 ml/min 07/16/22: Est GFR (Non-Af Amer) 82.4 ml/min 07/16/22: BUN/Creatinine Ratio 25.4 (10-20) H 07/16/22 19: Glucose 83 mg/dl (70-99(Fasting)) 07/16/22 19: Calcium 10.2 mg/dl (8.5-10.1) H 07/16/22: Phosphorus 3.6 mg/dl (2.5-4.9) 07/16/22: Magnesium 1.9 mg/dl (1.7-2.4) 07/16/22: Total Bilirubin 0.5 mg/dl (0.2-1.0) 07/16/22 19: AST 17 U/L (13-39) 07/16/22 19: ALT 15 U/L (7-52) 07/16/22 19: Alkaline Phosphatase 84 U/L (34-104) 07/16/22 19: Troponin I High Sens 11.1 pg/ml (0-14) 07/16/22 19: Total Protein 7.4 gm/dl (6.0-8.3) 07/16/22 19: Albumin 4.1 gm/dl (3.4-5.0) 07/16/22 19: Globulin 3.3 gm/dl (2.5-4.0) 07/16/22: Albumin/Globulin Ratio 1.2 (0.9-2) 07/16/22: TSH 3.312 uIu/ml (0.300-4.500) 07/16/22: Urine Color Yellow 07/16/22 20: Urine Appearance Clear (Clear) 07/16/22 20: Urine pH 7.0 (4.5-7.5) 07/16/22 20: Ur Specific [place] 1.009 (1.000-1.030) 07/16/22 20: Urine Protein Trace (Negative) H 07/16/22 20: Urine Glucose (UA) Negative (Negative) 07/16/22 20: Urine Ketones Negative (Negative) 07/16/22 20: Urine Blood Negative (Negative) 07/16/22 20: Urine Nitrite Negative (Negative) 07/16/22 20: Urine Bilirubin Negative (Negative) 07/16/22 20: Urine Urobilinogen Negative (Negative) 07/16/22 20: Ur Leukocyte Esterase Negative (Negative) 07/16/22 20: Urine WBC (Auto) 1-5 /hpf (0-5) 07/16/22 20: Urine RBC (Auto) 0-4 /hpf (0-4) 07/16/22 20: U Hyaline Cast (Auto) 0 /lpf (0-5) 07/16/22 20: U Epithel Cells (Auto) 0-5 /lpf (0-5) 07/16/22 20: Urine Bacteria (Auto) Negative (Negative) 07/16/22 20: SARS-CoV-2 (PCR) NEGATIVE (Negative) 07/16/22: Influenza Type A (PCR) Negative (Neg) 07/16/22: Influenza Type B (PCR) Negative (Neg) 07/16/22 RSV (RT-PCR) Negative (Neg) 07/16/22 Impressions Chest X-Ray 07/16/22 19: SINGLE VIEW CHEST CLINICAL HISTORY: Dizziness. FINDINGS: An AP, portable, upright chest radiograph is compared to chest x-ray and chest CT dated 05/28/2022. The cardiomediastinal silhouette is top normal for projection noting atherosclerotic calcification of the thoracic aorta. Emphysema and chronic interstitial thickening is similar to previous. Foci of parenchymal scarring are seen throughout both lungs. No airspace consolidation or large pleural effusion is identified. No pneumothorax is seen. The skeletal structures are osteopenic. Again seen is a comminuted fracture of the right proximal humerus with displaced fragments. Surgical clips project over the axilla bilaterally. IMPRESSION: Emphysematous change with no acute cardiopulmonary abnormality identified. ACT 112: Negative or not required by law. Electronically signed by: Rashid aJrvis M.D. 07/16/2022 7:[address] 07/16/22 19:[address] OF THE BRAIN; CT ANGIOGRAM OF THE BRAIN; CT ANGIOGRAM OF THE NECK CLINICAL HISTORY: Dizziness. COMPARISON STUDY: CT of the brain dated 05/28/2022. Chest CT dated 01/04/2020. TECHNIQUE: Unenhanced axial CT scan of the brain is performed. Subsequently, following the IV administration of 111 of Optiray 320, CT angiogram of the head and neck was performed from the aortic arch to the vertex. Images are reviewed in the axial, sagittal, and coronal planes. 3-D MIPS images are created and assessed. IV contrast was administered without complication. All measurements were calculated based on NASCET criteria. A dose lowering technique was utilized adhering to the principles of ALARA. CT DOSE: 1013.22 mGy.cm FINDINGS: Brain parenchyma: There is age-related involutional change noting mild subcortical and periventricular microangiopathic disease. There is no hemorrhage, mass effect, or evidence of acute territorial ischemia by CT criteria. There is no evidence of enhancing mass lesion on the angiogram phase images. The ventricles, sulci, and cisterns are prominent secondary to involutional change. Lazar-white matter differentiation is preserved. No extra- axial fluid collection is seen. Thoracic aorta: There is atherosclerotic calcification of the thoracic aorta. Visualized portions of the thoracic aorta are normal in caliber. The aortic arch demonstrates standard 3-vessel anatomy. Right carotid arterial system: The right common carotid artery is widely patent, as are the right internal and external carotid arteries. Calcified plaque is noted in the carotid bulb. Left carotid arterial system: The left common carotid artery is widely patent, as are the left internal and external carotid arteries. Calcified plaque is noted in the carotid bulb. Vertebral arteries: The vertebral arteries are patent bilaterally Left-sided dominance. Subclavian arteries: The subclavian arteries are patent bilaterally noting atherosclerotic plaque and irregularity. There is moderate stenosis of the right axillary artery seen on image #[id number]. Intracranial vasculature: There is atherosclerotic calcification of the cavernous carotid and vertebral arteries. The internal carotid arteries are patent at the skull base, as are the anterior and middle cerebral arteries bilaterally. There is a left posterior communicating artery. The vertebrobasilar system and posterior cerebral arteries are widely patent. The left vertebral artery is dominant. There is no aneurysm, high-grade stenosis, or focal vessel cut off seen throughout the intracranial circulation. Jugular veins: Patent bilaterally. Dural sinuses: Patent. Lung apices: Emphysematous change is noted. A subpleural opacity at the lateral right apex measures approximately 3.7 x 1.6 cm. Soft tissues: The visualized pharyngeal soft tissues are normal in appearance noting angiographic phase technique. The oropharyngeal airway appears widely patent. The thyroid gland is heterogeneous. The salivary glands are normal in appearance. No cervical lymphadenopathy is seen. Skeletal structures: The skeletal structures are osteopenic. The calvarium a ppears intact. The cervical spine is maintained noting multilevel spondylosis. No lytic or blastic lesion is seen. Orbits: The bony orbits are intact. Orbital contents are normal as visualized noting bilateral ocular lens implants. Sinuses and mastoids: The paranasal sinuses are clear. The mastoid air cells are well pneumatized. IMPRESSION: 1. There is no hemorrhage, mass effect, or evidence of acute territorial ischemia by CT criteria. 2. Unremarkable CT angiogram of the brain. 3. Unremarkable CT angiogram of the neck. 4. 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 5. Emphysema. 6. There is a 3.7 cm subpleural opacity at the lateral right apex. This likely represents scarring/fibrosis, but this has increased from a [address] Underlying neoplasm would be impossible to exclude. Outpatient follow-up with pulmonology is recommended for further evaluation/workup. ACT 112: Positive. There are findings on this exam that require communication between the performing entity and the patient following Patient Test Result Information Act ([place] Act 112) guidelines. Electronically signed by: Rashid Jarvis M.D. 07/16/2022 10:25 PM Head CTA 10/21/22 19:[address] OF THE BRAIN; CT ANGIOGRAM OF THE BRAIN; CT ANGIOGRAM OF THE NECK CLINICAL HISTORY: Dizziness. COMPARISON STUDY: CT of the brain dated 05/28/2022. Chest CT dated 01/04/2020. TECHNIQUE: Unenhanced axial CT scan of the brain is performed. Subsequently, following the IV administration of 111 of Optiray 320, CT angiogram of the head and neck was performed from the aortic arch to the vertex. Images are reviewed in the axial, sagittal, and coronal planes. 3-D MIPS images are created and assessed. IV contrast was administered without complication. All measurements were calculated based on NASCET criteria. A dose lowering technique was utilized adhering to the principles of ALARA. CT DOSE: 1013.22 mGy.cm FINDINGS: Brain parenchyma: There is age-related involutional change noting mild subcortical and periventricular microangiopathic disease. There is no hemorrhage, mass effect, or evidence of acute territorial ischemia by CT c riteria. There is no evidence of enhancing mass lesion on the angiogram phase images. The ventricles, sulci, and cisterns are prominent secondary to involutional change. Lazar-white matter differentiation is preserved. No extra- axial fluid collection is seen. Thoracic aorta: There is atherosclerotic calcification of the thoracic aorta. Visualized portions of the thoracic aorta are normal in caliber. The aortic arch demonstrates standard 3-vessel anatomy. Right carotid arterial system: The right common carotid artery is widely patent, as are the right internal and external carotid arteries. Calcified plaque is noted in the carotid bulb. Left carotid arterial system: The left common carotid artery is widely patent, as are the left internal and external carotid arteries. Calcified plaque is noted in the carotid bulb. Vertebral arteries: The vertebral arteries are patent bilaterally Left-sided dominance. Subclavian arteries: The subclavian arteries are patent bilaterally noting at herosclerotic plaque and irregularity. There is moderate stenosis of the right axillary artery seen on image #76. Intracranial vasculature: There is atherosclerotic calcification of the cavernous carotid and vertebral arteries. The internal carotid arteries are patent at the skull base, as are the anterior and middle cerebral arteries bilaterally. There is a left posterior communicating artery. The vertebrobasilar system and posterior cerebral arteries are widely patent. The left vertebral artery is dominant. There is no aneurysm, high-grade stenosis, or focal vessel cut off seen throughout the intracranial circulation. Jugular veins: Patent bilaterally. Dural sinuses: Patent. Lung apices: Emphysematous change is noted. A subpleural opacity at the lateral right apex measures approximately 3.7 x 1.6 cm. Soft tissues: The visualized pharyngeal soft tissues are normal in appearance noting angiographic phase technique. The oropharyngeal airway appears widely patent. The thyroid gland is heterogeneous. The salivary glands are normal in appearance. No cervical lymphadenopathy is seen. Skeletal structures: The skeletal structures are osteopenic. The calvarium appears intact. The cervical spine is maintained noting multilevel spondylosis. No lytic or blastic lesion is seen. Orbits: The bony orbits are intact. Orbital contents are normal as visualized noting bilateral ocular lens implants. Sinuses and mastoids: The paranasal sinuses are clear. The mastoid air cells are well pneumatized. IMPRESSION: 1. There is no hemorrhage, mass effect, or evidence of acute territorial ischemia by CT criteria. 2. Unremarkable CT angiogram of the brain. 3. Unremarkable CT angiogram of the neck. 4. 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 5. Emphysema. 6. There is a 3.7 cm subpleural opacity at the lateral right apex. This likely represents scarring/fibrosis, but this has increased from a [address] Underlying neoplasm would be impossible to exclude. Outpatient follow-up with pulmonology is recommended for further evaluation/workup. ACT 112: Positive. There are findings on this exam that require communication between the performing entity and the patient following Patient Test Result Information Act ([place] Act 112) guidelines. Electronically signed by: Rashid Jarvis M.D. 07/16/2022 10:25 PM Neck CTA 07/16/22 19:[address] OF THE BRAIN; CT ANGIOGRAM OF THE BRAIN; CT ANGIOGRAM OF THE NECK CLINICAL HISTORY: Dizziness. COMPARISON STUDY: CT of the brain dated 05/28/2022. Chest CT dated 01/04/2020. TECHNIQUE: Unenhanced axial CT scan of the brain is performed. Subsequently, following the IV administration of 111 of Optiray 320, CT angiogram of the head and neck was performed from the aortic arch to the vertex. Images are reviewed in the axial, sagittal, and coronal planes. 3-D MIPS images are created and assessed. IV contrast was administered without complication. All measurements were calculated based on NASCET criteria. A dose lowering technique was utilized adhering to the principles of ALARA. CT DOSE: 1013.22 mGy.cm FINDINGS: Brain parenchyma: There is age-related involutional change noting mild subcortical and periventricular microangiopathic disease. There is no hemorrhage, mass effect, or evidence of acute territorial ischemia by CT criteria. There is no evidence of enhancing mass lesion on the angiogram phase images. The ventricles, sulci, and cisterns are prominent secondary to involutional change. Lazar-white matter differentiation is preserved. No extra- axial fluid collection is seen. Thoracic aorta: There is atherosclerotic calcification of the thoracic aorta. Visualized portions of the thoracic aorta are normal in caliber. The aortic arch demonstrates standard 3-vessel anatomy. Right carotid arterial system: The right common carotid artery is widely patent, as are the right internal and external carotid arteries. Calcified plaque is noted in the carotid bulb. Left carotid arterial system: The left common carotid artery is widely patent, as are the left internal and external carotid arteries. Calcified plaque is noted in the carotid bulb. Vertebral arteries: The vertebral arteries are patent bilaterally Left-sided dominance. Subclavian arteries: The subclavian arteries are patent bilaterally noting atherosclerotic plaque and irregularity. There is moderate stenosis of the right axillary artery seen on image #76. Intracranial vasculature: There is atherosclerotic calcification of the cavernous carotid and vertebral arteries. The internal carotid arteries are patent at the skull base, as are the anterior and middle cerebral arteries bilaterally. There is a left posterior communicating artery. The vertebrobasilar system and posterior cerebral arteries are widely patent. The left vertebral artery is dominant. There is no aneurysm, high-grade stenosis, or focal vessel cut off seen throughout the intracranial circulation. Jugular veins: Patent bilaterally. Dural sinuses: Patent. Lung apices: Emphysematous change is noted. A subpleural opacity at the lateral right apex measures approximately 3.7 x 1.6 cm. Soft tissues: The visualized pharyngeal soft tissues are normal in appearance noting angiographic phase technique. The oropharyngeal airway appears widely patent. The thyroid gland is heterogeneous. The salivary glands are normal in appearance. No cervical lymphadenopathy is seen. Skeletal structures: The skeletal structures are osteopenic. The calvarium appears intact. The cervical spine is maintained noting multilevel spondylosis. No lytic or blastic lesion is seen. Orbits: The bony orbits are intact. Orbital contents are normal as visualized noting bilateral ocular lens implants. Sinuses and mastoids: The paranasal sinuses are clear. The mastoid air cells are well pneumatized. IMPRESSION: 1. There is no hemorrhage, mass effect, or evidence of acute territorial ischem ia by CT criteria. 2. Unremarkable CT angiogram of the brain. 3. Unremarkable CT angiogram of the neck. 4. 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 5. Emphysema. 6. There is a 3.7 cm subpleural opacity at the lateral right apex. This likely represents scarring/fibrosis, but this has increased from a [address] Underlying neoplasm would be impossible to exclude. Outpatient follow-up with pulmonology is recommended for further evaluation/workup. ACT 112: Positive. There are findings on this exam that require communication between the performing entity and the patient following Patient Test Result Information Act ([place] Act 112) guidelines. Electronically signed by: Rashid Jarvis M.D. 07/16/2022 10:25 PM Diagnostic Findings EKG as per my interpretation : Rate 75, NSR, LAD, LAFB, no ischemia
[2022-07-17 00:46] LABS: Base Excess ABG 4.2 mEq/L (-9-1.8); HCO3 ABG 28 mmol/L (19-24); Oxygen Saturation ABG 96.1 % (90-95); PCO2 ABG 40 mmHg (35-46); PO2 ABG 70 mmHg (80-95); pH ABG 7.46 (7.35-7.45)
[2022-07-17] MEDS ORDERED: LACTATED RINGER'S 1,000 ML IV STA (00:53)
[2022-07-17 01:13] LABS: Allen Test Pos (Pos)
[2022-07-17] MEDS ORDERED: LEVALBUTEROL 1.25MG/0.5ML NEB INH SCH (02:26)
[2022-07-17] MEDS ORDERED: ACETAMINOPHEN 325 MG TAB PO PRN (02:26)
[2022-07-17] MEDS ORDERED: PROMETHAZINE HCL 6.25 MG in SODIUM CHLORIDE 0.9% 50 ML IV PRN (02:26)
[2022-07-17] MEDS ORDERED: XOPENEX/ATROVENT 1.25mg/0.5MG NEB COMBO NEB PRN (02:26)
[2022-07-17] MEDS ORDERED: ALPRAZolam 0.5 MG TABLET PO PRN ×2 (02:26→09:38)
[2022-07-17] MEDS ORDERED: IPRATROPIUM BROMIDE NEB SOLN 0.02% 2.5 ML VIAL INH SCH (02:26)
[2022-07-17] MEDS ORDERED: LEVALBUTEROL 1.25MG/0.5ML NEB INH PRN (02:57)
[2022-07-17] MEDS ORDERED: IPRATROPIUM BROMIDE NEB SOLN 0.02% 2.5 ML VIAL INH PRN (02:57)
[2022-07-17] MEDS: HEPARIN SOD 5,000 UNIT/0.5 ML VIAL SQ SCH ×3 (06:01→22:40)
[2022-07-17 06:25] LABS: Hematocrit (blood only) 40.1 % (34.1-44.9); Mean Corpuscular Hemoglobin 29.4 pg (25.0-34.0); Mean Corpuscular Hgb Conc 34.9 g/dL (32.0-36.0); Mean Corpuscular Volume 84.1 fL (80.0-100.0); Mean Platelet Volume 8.9 fL (9.4-12.3); Platelet Count 275 K/uL (130-400); RDW Coefficient of Variation 16.6 % (11.5-14.5); Red Blood Count 4.77 M/uL (3.93-5.22); White Blood Count 7.82 K/ul (4.8-10.8)
[2022-07-17 07:05] LABS: BUN Creatinine Ratio 21.3 (10-20); Calcium 10.1 mg/dl (8.5-10.1); Creatinine Clr Calc Pharmacy 57.2 ml/min; Est GFR (African American) 98.5 ml/min; Potassium 3.7 mmol/L (3.5-5.1)
--- NOTE | 2022-07-17 07:05 | Electrocardiogram Report ---
Test Reason : Blood Pressure : / mmHG Vent. Rate : 075 BPM Atrial Rate : 075 BPM P-R Int : 304 ms QRS Dur : 080 ms QT Int : 382 ms P-R-T Axes : 070 -30 071 degrees QTc Int : 426 ms Sinus rhythm with 1st degree A-V block Left axis deviation Poor R wave progression, consider anterior MA vs. lead placement vs. LVH Abnormal ECG When compared with ECG of 28-MAY-2022 16:22, OK interval has increased Confirmed by Tip Cabello ([id number]) on 07/17/2022 7:04:51 AM Referred By: Ladarius Dudley Confirmed By:Sandeep Cabello
[2022-07-17 07:51] LABS: Basophils # (auto) 0.02 K/uL (0-0.2); Basophils % (auto) 0.3 %; Echinocytes 1+; Immature Granulocytes # (auto) 0.02 K/uL (0.00-0.02); Immature Granulocytes % (auto) 0.3 %; Lymphocytes # (auto) 0.48 K/uL (1.2-3.4); Lymphocytes % (auto) 6.1 %; Monocytes # (auto) 0.07 K/uL (0.24-0.82); Monocytes % (auto) 0.9 %; Neutrophils # (auto) 7.23 K/uL (1.4-6.5); Neutrophils % (auto) 92.4 %; Toxic Vacuolation 1+
[2022-07-17] MEDS ORDERED: FLUTICASONE PROPIONATE NA SPR 16 GM BTL SCH (09:00)
[2022-07-17] MEDS ORDERED: amLODIPine BESYLATE 5 MG TAB PO SCH (09:00)
[2022-07-17] MEDS ORDERED: INFLUENZA VACCINE HIGH DOSE PF 65+ 0.7 ML SYR IM ONE (09:00)
[2022-07-17] MEDS: DOCUSATE SODIUM 100 MG CAP PO SCH ×2 (09:39→22:40)
[2022-07-17] MEDS: amLODIPine BESYLATE 5 MG TAB PO SCH (09:39)
[2022-07-17] MEDS: PANTOprazole 40 MG TAB PO SCH ×2 (09:40→22:40)
[2022-07-17] MEDS: ONDANSETRON INJ 2 MG/ML 2 ML VIAL IV PRN (10:33)
[2022-07-17] MEDS: ALPRAZolam 0.5 MG TABLET PO PRN ×3 (10:34→22:39)
--- NOTE | 2022-07-17 15:39 | Hospitalist Progress Note ---
Date of Service July 17, 2022 Assessment & Plan (1) Acute hypoxemic respiratory failure: Plan: Acute hypoxic respiratory failure Acute on Chronic COPD CXR: Emphysematous change with no acute cardiopulmonary abnormality identified. Continue prednisone, nebs Wean off of supplemental oxygen to keep saturations 88-92 % Dizziness Likely due to uncontrolled hypertension ? Compliance, family has concerns about patient's ability to take home medications, possible functional disability --CT Head/Head and Neck CTA:There is no hemorrhage, mass effect, or evidence of acute territorial ischemia by CT criteria. Unremarkable CT angiogram of the brain. Unremarkable CT angiogram of the neck. --Monitor on Tele --Monitor BP and adjust meds as needed 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 H/O displaced and slightly comminuted fracture involving the proximal to mid shaft of the right humerus Incidental finding on CT Started on Aspirin Consulted Vascular Surgery Lung Opacity CT :There is a 3.7 cm subpleural opacity at the lateral right apex. This likely represents scarring/fibrosis, but this has increased from a [address] Underlying neoplasm would be impossible to exclude. Outpatient follow-up with pulmonology is recommended for further evaluation/workup. -H/O breast Cancer Needs follow-up with pulmonology upon discharge Chronic Hyponatremia No change in mental status Monitor sodium levels Sodium 133 Hypertension ? Anxiety contributing Continue amlodipine Adjust medications as needed Monitor BP Hyperlipidemia H/O statin intolerance Breast cancer S/P surgery/chemoradiation In remission H/O Memory impairment Ambulatory dysfunction Ongoing tobacco abuse Counselled to quit smoking PT/OT Anxiety disorder Continue home meds DVT Px: Heparin SQ Code Status Full code Admission and Anticipated Discharge Date Admission Date: July 17, 2022 Subjective Patient is seen and examined at bedside States having dizziness Also reports chronic cough with intermittent expectoration Denies any chest pain, dyspnea, nausea, abdominal pain Offers no other complaints Review of Systems Review of Systems: All systems reviewed & are unremarkable except as noted in Subjective Physical Exam Physical Exam: Physical Exam: Vitals signs as noted above General Appearance:Thin, no apparent distress Head: normocephalic, Atraumatic Eyes: normal inspection, EOMI Neck: supple, Trachea midline Respiratory/Chest: Decreased breath sounds, scattered wheezes, No accessory muscle use B/L Mastectomy Cardiovascular: S1, S2, No murmur Abdomen/GI:Soft, Non tender, Bowel sounds present Extremities/Musculoskeletal:normal inspection, RUE Lymphedema Neurologic/Psych:AAOX3, grossly no focal neurological deficits Skin: normal color, warm Results & Data Results & Data ([facility]) Vital Signs (Past 12 Hours) Vital Signs Temp Pulse Pulse Resp BP Pulse Ox O2 Del Method 07/17/22 11:16 36.9 C 61 18 136/76 97 Nasal Cannula 07/17/22 08:00 Nasal Cannula 07/17/22 07:44 67 07/17/22 06:40 36.6 C 70 20 147/73 H 95 Nasal Cannula O2 Flow Rate 07/17/22 11:16 1 07/17/22 08:00 1 07/17/22 07:44 07/17/22 06:40 1 Laboratory Results Short CBC 07/16/22 07/17/22 Range/Units 19:28 05:49 WBC 8.97 7.82 (4.8-10.8) K/ul Hgb 14.2 14.0 (12.0-16.0) g/dl Hct 40.9 40.1 (34.1-44.9) % Plt Count 282 275 (130-400) K/uL [facility] 07/16/22 07/17/22 19:28 05:49 Sodium 132 L 133 L Potassium 3.8 3.7 Chloride 95 L 98 Carbon Dioxide 28 28 BUN 17 13 Creatinine 0.67 0.61 Glucose 83 139 H Calcium 10.2 H 10.1 Liver Function 07/16/22 Range/Units 19:28 Total Bilirubin 0.5 (0.2-1.0) mg/dl AST 17 (13-39) U/L ALT 15 (7-52) U/L Alkaline Phosphatase 84 (34-104) U/L Albumin 4.1 (3.4-5.0) gm/dl Urine 07/16/22 Range/Units 20:01 Urine Color Yellow Urine Appearance Clear (Clear) Urine pH 7.0 (4.5-7.5) Ur Specific [place] 1.009 (1.000-1.030) Urine Protein Trace H (Negative) Urine Glucose (UA) Negative (Negative)
[2022-07-17] MEDS: ASPIRIN 81 MG CHEW PO SCH (17:52)
[2022-07-17] MEDS: predniSONE 20 MG TAB PO SCH (18:53)
[2022-07-17] MEDS ORDERED: COUGH DROP (SUGAR FREE) LOZ 24 LOZ/1 BOX BUCCAL PRN (20:45)
[2022-07-17] MEDS ORDERED: COUGH DROP (SUGAR FREE) LOZ 24 LOZ/1 BOX BUCCAL ONE (20:47)
[2022-07-17] MEDS: MELATONIN 3 MG TAB PO PRN (22:51)
[2022-07-17] MEDS ORDERED: XOPENEX/ATROVENT 1.25mg/0.5MG NEB COMBO NEB STA (23:57)
[2022-07-17] MEDS ORDERED: IPRATROPIUM BROMIDE NEB SOLN 0.02% 2.5 ML VIAL INH STA (23:57)
[2022-07-17] MEDS ORDERED: LEVALBUTEROL 1.25MG/0.5ML NEB INH STA (23:57)
[2022-07-17] MEDS ORDERED: FLUTICASONE PROPIONATE NA SPR 16 GM BTL STA (23:58)
[2022-07-18] MEDS: DICLOFENAC SOD 1% GEL 100 GM TUBE EXT PRN (00:34)
[2022-07-18] MEDS: HEPARIN SOD 5,000 UNIT/0.5 ML VIAL SQ SCH ×3 (05:29→22:20)
[2022-07-18 06:23] LABS: Calcium 9.6 mg/dl (8.5-10.1); Creatinine Clr Calc Pharmacy 54.5 ml/min; Est GFR (Non-African American) 83.7 ml/min; Potassium 3.7 mmol/L (3.5-5.1)
--- NOTE | 2022-07-18 08:09 | XRay Report ---
SINGLE VIEW CHEST CLINICAL HISTORY: Wheezing. FINDINGS: An AP, portable, upright chest radiograph is compared to chest x-ray dictated 07/16/2022 an d correlated with chest CT dated 05/28/2022. The cardiomediastinal silhouette is top normal for project ion noting atherosclerotic calcification of the thoracic aorta. Emphysema and chronic interstitial th ickening is similar to previous. Foci of parenchymal scarring are seen throughout both lungs. No airs pace consolidation or large pleural effusion is identified. No pneumothorax is seen. The skeletal str uctures are osteopenic. Again seen is a comminuted fracture of the right proximal humerus with displa jaylen fragments. Surgical clips project over the axilla bilaterally. IMPRESSION: Emphysematous change with no acute cardiopulmonary abnormality identified. ACT 112: Negative or not required by law. Electronically signed by: Rashid Jarvis M.D. 07/18/2022 8:08 AM
[2022-07-18] MEDS: amLODIPine BESYLATE 5 MG TAB PO SCH (10:34)
[2022-07-18] MEDS: ASPIRIN 81 MG CHEW PO SCH (10:34)
[2022-07-18] MEDS: PANTOprazole 40 MG TAB PO SCH ×2 (10:36→20:05)
[2022-07-18] MEDS: predniSONE 20 MG TAB PO SCH (10:36)
[2022-07-18] MEDS: DOCUSATE SODIUM 100 MG CAP PO SCH ×2 (10:36→20:06)
[2022-07-18] MEDS: ONDANSETRON INJ 2 MG/ML 2 ML VIAL IV PRN (10:40)
[2022-07-18] MEDS: ALPRAZolam 0.5 MG TABLET PO PRN ×3 (10:40→20:01)
--- NOTE | 2022-07-18 16:50 | Hospitalist Progress Note ---
Date of Service July 18, 2022 Assessment & Plan (1) Acute hypoxemic respiratory failure: Plan: Acute hypoxic respiratory failure Acute on Chronic COPD CXR: Emphysematous change with no acute cardiopulmonary abnormality identified. Continue prednisone, nebs Wean off of supplemental oxygen to keep saturations 88-92 % Titrate off Steroids as able Dizziness Likely due to uncontrolled hypertension ? Compliance, family has concerns about patient's ability to take home medications, possible functional disability --CT Head/Head and Neck CTA:There is no hemorrhage, mass effect, or evidence of acute territorial ischemia by CT criteria. Unremarkable CT angiogram of the brain. Unremarkable CT angiogram of the neck. --Monitor on Tele --Obtain MRI brain--pending --Monitor BP and adjust meds as needed --Consider Neurology Eval if needed 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 H/O displaced and slightly comminuted fracture involving the proximal to mid shaft of the right humerus Incidental finding on CT Started on Aspirin Consulted Vascular Surgery Lung Opacity CT :There is a 3.7 cm subpleural opacity at the lateral right apex. This likely represents scarring/fibrosis, but this has increased from a [address] Underlying neoplasm would be impossible to exclude. Outpatient follow-up with pulmonology is recommended for further evaluation/workup. -H/O breast Cancer Needs follow-up with pulmonology upon discharge Chronic Hyponatremia ? SIADH No change in mental status Monitor sodium levels Sodium 131 today Started on fluid restriction Hypertension ? Anxiety contributing Continue amlodipine Adjust medications as needed BP better today Hyperlipidemia H/O statin intolerance Breast cancer S/P surgery/chemoradiation In remission H/O Memory impairment Ambulatory dysfunction Ongoing tobacco abuse Counselled to quit smoking PT/OT Anxiety disorder Continue home meds DVT Px: Heparin SQ Code Status Full code Admission and Anticipated Discharge Date Admission Date: July 17, 2022 Subjective Patient is seen and examined at bedside Persistent dizziness Also reports nausea today Chronic cough with intermittent expectoration Denies any chest pain, dyspnea, nausea, abdominal pain Review of Systems Review of Systems: All systems reviewed & are unremarkable except as noted in Subjective Physical Exam Physical Exam: Physical Exam: Vitals signs as noted above General Appearance:Thin, no apparent distress Head: normocephalic, Atraumatic Eyes: normal inspection, EOMI Neck: supple, Trachea midline Respiratory/Chest: Decreased breath sounds, CTA, No accessory muscle use B/L Mastectomy Cardiovascular: S1, S2, No murmur Abdomen/GI:Soft, Non tender, Bowel sounds present Extremities/Musculoskeletal:normal inspection, RUE Lymphedema Neurologic/Psych:AAOX3, grossly no focal neurological deficits Skin: normal color, warm Results & Data Results & Data ([facility]) Vital Signs (Past 12 Hours) Vital Signs Temp Pulse Pulse Resp BP Pulse Ox Pulse Ox 07/18/22 16:00 78 07/18/22 16:26 84 138/74 91 07/18/22 14:35 37.0 C 72 18 158/81 H 94 07/18/22 08:00 07/18/22 12:40 92 07/18/22 11:32 36.7 C 64 20 157/82 H 97 07/18/22 08:00 60 07/18/22 07:03 36.6 C 67 16 147/77 H 98 O2 Del Method O2 Flow Rate O2 Flow Rate 07/18/22 16:00 07/18/22 16:26 Room Air 07/18/22 14:35 Nasal Cannula 1 07/18/22 08:00 Nasal Cannula 1 07/18/22 12:40 2 07/18/22 11:32 Nasal Cannula 1 07/18/22 08:00 07/18/22 07:03 Nasal Cannula 1 Laboratory Results BMP 07/18/22 05:20 Sodium 131 L Potassium 3.7 Chloride 98 Carbon Dioxide 29 BUN 16 Creatinine 0.64 Glucose 120 H Calcium 9.6
[2022-07-18] MEDS ORDERED: LORazepam 0.5 MG TAB PO ONE (17:32)
[2022-07-18] MEDS: FLUTICASONE PROPIONATE NA SPR 16 GM BTL SCH (20:04)
[2022-07-18] MEDS ORDERED: GADOBUTROL 65ML VIAL IV ONE (23:44)
[2022-07-19] MEDS: MELATONIN 3 MG TAB PO PRN (01:21)
[2022-07-19] MEDS ORDERED: LORazepam 0.5 MG TAB PO STA (02:14)
[2022-07-19] MEDS: HEPARIN SOD 5,000 UNIT/0.5 ML VIAL SQ SCH ×2 (05:26→13:42)
[2022-07-19 06:36] VITALS: O2SAT 92
[2022-07-19 07:10] LABS: BUN Creatinine Ratio 28.6 (10-20); Calcium 9.9 mg/dl (8.5-10.1); Creatinine Clr Calc Pharmacy 55.4 ml/min; Est GFR (African American) 97.5 ml/min; Est GFR (Non-African American) 84.1 ml/min; Potassium 3.5 mmol/L (3.5-5.1)
[2022-07-19] MEDS: FLUTICASONE PROPIONATE NA SPR 16 GM BTL SCH (07:26)
[2022-07-19] MEDS: DOCUSATE SODIUM 100 MG CAP PO SCH (07:27)
[2022-07-19] MEDS: ASPIRIN 81 MG CHEW PO SCH (07:27)
[2022-07-19] MEDS: amLODIPine BESYLATE 5 MG TAB PO SCH (07:27)
[2022-07-19] MEDS: PANTOprazole 40 MG TAB PO SCH (07:27)
[2022-07-19] MEDS ORDERED: predniSONE 10 MG TABLET PO SCH (09:00)
--- NOTE | 2022-07-19 09:53 | Consultation ---
Date of Consultation July 19, 2022 Assessment & Plan (1) Peripheral arterial disease: Pt with incidental finding of mild RUE axillary artery stenosis. Pt is asymptomatic from this and does not require surgical intervention at this time. Also discussed with pt and her Daughter, Mahi. Please call if needed. History of Present Illness Reason for Consultation: R axillary art stenosis Attending Physician: Al Mcgill MD History of Present Illness 82 yo f with hx of COPD, breast ca, lymphedema of RUE, HTN, depression, anemia, CKD, GERD, hyperlipidemia, pulmonary nodule, anxiety, colon polyps, admitted d/t dizziness, seen in consultation today for incidental finding of R axillary artery stenosis. Pt is right handed and does most things with her R hand. She denies any sx of claudication, or finger pain/ulcers. She does admit significant chronic lymphedema of RUE which makes her arm a little heavy feeling. She admits pain in R upper arm only, where she suffered a humeral fracture months ago that has not healed. Denies SEYMOUR, chest pain, SOB, abd pain, N/V, rest pain, claudication, other complaints. CTA neck demonstrates mild stenosis of R axillary art. Allergies Allergy/AdvReac Type Severity Reaction Status Date / Time tetanus toxoid, adsorbed Allergy Severe Anaphylaxis Verified 07/16/22 20:34 vancomycin Allergy Severe throat Verified 07/16/22 20:34 swelling Penicillins Allergy Intermediate Rash Verified 07/16/22 20:34 erythromycin base Allergy Mild Rash Verified 07/16/22 20:34 Sulfa (Sulfonamide Allergy Mild RASH Verified 07/16/22 20:34 Antibiotics) [id number] Reductase AdvReac Mild Leg cramps Verified 07/16/22 20:34 Inhibitor [Ubbfjhq-Qnr-Idf Reductase Inhibitor] Home Medications Medication Instructions Recorded Confirmed Type magnesium oxide 400 mg PO DAILY 12/03/19 07/16/22 History melatonin 10 mg tablet 10 mg PO HS PRN Sleep 03/07/20 07/16/22 History omeprazole 20 mg capsule,delayed 20 mg PO BID #180 caps 06/03/20 07/16/22 Rx release diclofenac sodium 1 % topical gel 2 g topical QID PRN arthralgia 10/21/20 07/16/22 Rx #100 grams alprazolam 1 mg tablet 1 mg PO BID PRN anxiety #180 tabs 04/27/21 07/16/22 Rx amlodipine 5 mg tablet 5 mg PO DAILY #90 tabs 05/11/21 07/16/22 Rx ondansetron HCl 4 mg tablet 4 mg PO Q8H PRN nausea and 06/12/21 07/16/22 Rx vomiting #90 tabs docusate sodium 100 mg capsule 100 mg PO BID #180 caps 03/09/22 07/16/22 Rx albuterol sulfate 90 mcg/actuation 2 inh inhalation Q6H PRN shortness 05/28/22 07/16/22 Rx aerosol inhaler (Proventil HFA) of breath or wheezing #8.5 grams amoxicillin 500 mg capsule 2,000 mg PO DIRECTED PRN PRIOR 07/16/22 07/16/22 History TO DENTAL APPT. fluticasone propionate 50 2 spray intranasal DAILY 07/16/22 07/16/22 History mcg/actuation nasal spray,suspension triamcinolone acetonide 0.025 % 1 applic topical .COMPLEX PRN Skin 07/16/22 07/16/22 History topical cream Irritation Patient History Medical History Anemia Anxiety Arthritis Gastroesophageal reflux disease History of breast cancer "Abnormal right breast mammogram Status post ultrasound-guided biopsy 06/22/2013 revealing moderately differentiated invasive ductal carcinoma SURGERY/CHEMO AND RADIATION History of kidney stones Hyperlipidemia Hypertension Restless legs syndrome Right arm cellulitis REASON FOR ANTIBIOTIC Solitary pulmonary nodule Spondylosis Surgical History H/O bilateral mastectomy H/O colonoscopy History of anesthesia reaction HALLUCINATION History of bilateral tubal ligation History of bladder surgery BLADDER TACK DURING HYSTERECTOMY History of cataract surgery RT/LEFT History of hysterectomy History of left knee replacement History of lithotripsy History of tooth extraction History of vascular access device A PORT INSERTION AND REMOVAL Hx of cosmetic plastic surgery BREAST IMPLANTS POST BILAT. MASTECTOMY (REQUIRED TO BE REMOVED D/T INFECTION) S/P tonsillectomy Family History Daughter Family history of diabetes mellitus Brother Family history of diabetes mellitus Other Breast cancer No family history of adverse response to anesthesia Denies family history of Ovarian cancer Prostate cancer Coronary heart disease Myocardial infarction Colorectal cancer Social History Smoking Status: Current every day smoker Tobacco Type: Cigarettes Second Hand Exposure: Yes ("SELDOM"); Tobacco Cessation Education Requested by Patient: No Hx Alcohol Use: Yes Alcohol type: other Hx Substance Use: No Preferred Language: Azerbaijani Communication Ability: Effective Hearing Ability: Normal Trash Collector Required: No Beliefs That Will Affect Care: None marital status: Current Living Situation: Spouse Current Living Situation Comment: lives with 93 year old current occupational status: retired Other Information That Helps Us Care for You: No Feels Safe at Home: Yes Safety Concerns: Feels Safe At This Time caffeine: No Dental Care, Regularly: Yes Physical Activity Frequency: Does not Exercise Seatbelt Use: always Sunscreen Use: No Assistive Devices: Cane and Walker Review of Systems Review of Systems: All systems reviewed & are unremarkable except as noted in HPI & below Physical Exam Constitutional: WD/WN, vitals as above healthy appearing, cooperative and comfortable; not in distress ENMT: Ears: no hearing impairment Neck: trachea midline Respiratory: normal respiratory effort, lungs clear to auscultation Auscultation: + diminished lung sounds Cardiovascular: Rate/Rhythm: regular rate and regular rhythm Vessels: posterior tibial pulses present, dorsalis pedis pulses present, brachial pulses present and radial pulses present; + abnormal peripheral pulses Extremities: normal capillary refill and + edema (lymphedema RUE) Gastrointestinal (Abdomen): Inspection/Auscultation: abdomen normal to inspection and normal bowel sounds Percussion/Palpation: abdomen soft; abdomen nontender Musculoskeletal: no cyanosis or clubbing, extremities motor strength 5/5 Skin: no rashes, warm and dry Neurologic: moves all extremities and awake; no focal motor deficits and not confused Psychiatric: A+Ox3, euthymic affect Results & Data ([facility]) Vital Signs (Past 12 Hours) Vital Signs Temp Pulse Pulse Resp BP Pulse Ox Pulse Ox 07/19/22 08:00 07/19/22 06:35 36.7 C 78 18 146/74 H 92 07/19/22 04:32 36.7 C 73 20 146/78 H 90 07/18/22 22:11 72 07/19/22 02:00 98 O2 Del Method O2 Del Method 07/19/22 08:00 Room Air 07/19/22 06:35 Room Air 10/24/22 04:32 Room Air 07/18/22 22:11 07/19/22 02:00 Room Air
[2022-07-19] MEDS: ALPRAZolam 0.5 MG TABLET PO PRN ×2 (10:16→15:04)
[2022-07-19 11:35] VITALS: BP 156/88; TEMP 97.9
--- NOTE | 2022-07-19 12:12 | Magnetic Resonance Report ---
MR brain wo/w con CLINICAL HISTORY: Dizziness TECHNIQUE: Multiplanar and multisequence MR images of the brain were obtained prior to and following administration of gadolinium contrast. Comparison: Comparison is made to CTA head and neck 07/16/2022 FINDINGS: No abnormal restricted diffusion is identified. Foci of T2 and FLAIR hyperintensity are noted in the paraventricular areas consistent with chronic small vessel ischemic disease. Ex vacuo ventriculomegal y and sulcal enlargement is noted compatible with diffuse encephalomalacia. No mass or abnormal enhan cement is seen. There is no mass effect or midline shift. There is no evidence of acute intraparenchy mal hemorrhage. No extra axial fluid collections are seen. The corpus callosum, pituitary gland, and cerebellar tonsils appear grossly unremarkable. Flow voids of the major intracranial arterial vessels are identified. The imaged portions of the para nasal sinuses, mastoid air cells, and orbits are unremarkable. IMPRESSION: No acute abnormalities. ACT 112: Negative or not required by law. Electronically signed by: Stefan Max M.D. 07/19/2022 12:11 PM
[2022-07-19] MEDS: DICLOFENAC SOD 1% GEL 100 GM TUBE EXT PRN (12:52)
[2022-07-19] MEDS ORDERED: lisinopril 2.5 MG TAB PO SCH (13:30)
--- NOTE | 2022-07-19 13:32 | Hospitalist Progress Note ---
Date of Service July 19, 2022 Assessment & Plan (1) Acute hypoxemic respiratory failure: Plan: Acute hypoxic respiratory failure Acute on Chronic COPD CXR: Emphysematous change with no acute cardiopulmonary abnormality identified. Discontinued prednisone after short course Nebs PRN Wean off of supplemental oxygen to keep saturations 88-92 % Dizziness Likely due to uncontrolled hypertension ? Compliance, family has concerns about patient's ability to take home medications, possible functional disability --CT Head/Head and Neck CTA:There is no hemorrhage, mass effect, or evidence of acute territorial ischemia by CT criteria. Unremarkable CT angiogram of the brain. Unremarkable CT angiogram of the neck. --MRI brain:No acute abnormalities. 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 H/O displaced and slightly comminuted fracture involving the proximal to mid shaft of the right humerus Incidental finding on CT Started on Aspirin Appreciate Vascular Surgery Input: No surgical intervention suggested at this time Lung Opacity CT :There is a 3.7 cm subpleural opacity at the lateral right apex. This likely represents scarring/fibrosis, but this has increased from a [address] Und erlying neoplasm would be impossible to exclude. Outpatient follow-up with pulmonology is recommended for further evaluation/workup. -H/O breast Cancer Needs follow-up with pulmonology upon discharge Chronic Hyponatremia ? SIADH No change in mental status Monitor sodium levels Sodium 134 today Hypertension ? Anxiety contributing Continue amlodipine Added Lisinopril 2.5 mg daily Monitor Hyperlipidemia H/O statin intolerance Breast cancer S/P surgery/chemoradiation In remission H/O Memory impairment Ambulatory dysfunction Ongoing tobacco abuse Counselled to quit smoking PT/OT May benefit from SNF Placement Anxiety disorder Continue home meds DVT Px: Heparin SQ Code Status Full code Admission and Anticipated Discharge Date Admission Date: July 17, 2022 Subjective Patient is seen and examined at bedside Dizziness much improved . "It comes and goes" Nausea resolved Chronic cough with intermittent expectoration Denies any chest pain, dyspnea, nausea, abdominal pain Updated patient's daughter over the phone Review of Systems Review of Systems: All systems reviewed & are unremarkable except as noted in Subjective Physical Exam Physical Exam: Physical Exam: Vitals signs as noted above General Appearance:Thin, no apparent distress Head: normocephalic, Atraumatic Eyes: normal inspection, EOMI Neck: supple, Trachea midline Respiratory/Chest: Decreased breath sounds, CTA, No accessory muscle use B/L Mastectomy Cardiovascular: S1, S2, No murmur Abdomen/GI:Soft, Non tender, Bowel sounds present Extremities/Musculoskeletal:normal inspection, RUE Lymphedema Neurologic/Psych:AAOX3, grossly no focal neurological deficits Skin: normal color, warm Results & Data Results & Data ([facility]) Vital Signs (Past 12 Hours) Vital Signs Temp Pulse Resp BP Pulse Ox Pulse Ox O2 Del Method 07/19/22 11:32 36.6 C 66 18 156/88 H 92 Room Air 07/19/22 08:00 Room Air 07/19/22 06:35 36.7 C 78 18 146/74 H 92 Room Air 07/19/22 04:32 36.7 C 73 20 146/78 H 90 Room Air 07/19/22 02:00 98 O2 Del Method 07/19/22 11:32 07/19/22 08:00 07/19/22 06:35 07/19/22 04:32 07/19/22 02:00 Room Air Laboratory Results [facility] 07/19/22 05:24 Sodium 134 L Potassium 3.5 Chloride 98 Carbon Dioxide 30 BUN 18 Creatinine 0.63 Glucose 80 Calcium 9.9
--- NOTE | 2022-07-19 14:51 | Discharge Summary ---
Date of Service July 19, 2022 Admission HPI Per Admitting Provider History obtained from patient, family, and records. Medical history significant for hypertension, hyperlipidemia/statin intolerance, COPD, breast cancer status post surgery/chemoradiation, pulmonary nodule, GERD, anxiety disorder, history memory impairment, ambulatory dysfunction, ongoing tobacco abuse. Last confinement September 2020 for RUE cellulitis. Patient has not been well the last few months as per daughter. Dizziness described as lightheadedness, not spinning as per patient. Patient somewhat off balanced when walking as per daughter. History of fall about 6 months ago with right humeral fracture and possible head trauma. Did not need surgery or confinement as per daughter. Patient somewhat more anxious and sad given limited ability to move around since injury. Patient denies suicidality. Last ER visit last month for generalized weakness. With cough and shortness of breath symptoms. Patient discharged on prednisone and steroid course for COPD exacerbation. Patient family communicated concerns about patient's mental status, forgetfulness at home to PCP following ER visit. Family worried about patient possibly not taking her medications. 1 week history of dizziness symptoms described as lightheadedness and feeling a little out of balance. Not spinning as per patient. No unusual headache symptoms. Not worse with movement. Usual cough symptoms, shortness of breath on exertion as per patient. No chest pain. Patient started smoking again as per daughter. Patient more anxious than usual as per daughter Patient brought to urgent care center yesterday. Patient directed to ER for further evaluation. Patient given Decadron, doxycycline, neb treatment for possible COPD exacerbation. SBP 190s at the highest during ER stay. Transient hypoxemia O2 sats 70s to 80s on ambulation at the ER. Patient denies unusual shortness of breath symptoms. Medical History as above Surgical History : Hysterectomy, BTL, bladder tuck, cataract surgery, left knee surgery, lithotripsy, dental surgery, a port surgery, bilateral mastectomy, breast implant placement and removal, tonsillectomy Family History : DM, breast cancer Personal/Social history : Few cigarettes from time to time, occasional EtOH intake, homemaker in her younger years, lives with Admission Exam Per Admitting Provider Physical Exam Physical Exam: GENERAL: Slightly anxious, pleasant, no respiratory distress SKIN: Normal color, warm HEENT: [place] palpebral conjunctivae, no ptosis, dry buccal mucosa, nasal cannula in place NECK : Supple, no tenderness CHEST : Decreased breath sounds, no wheezes, no tenderness HEART : RRR, no obvious murmurs ABDOMEN: no distention, nontender EXTREMITIES : No LE swelling/tenderness, no other conspicuous deformities noted NEUROLOGIC : Coherent, no facial asymmetry, gait and stance not assessed Principal Diagnosis Acute hypoxic respiratory failure Acute on Chronic COPD Dizziness Hypertension 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 Lung Opacity Chronic Hyponatremia Anxiety Disorder Discharge Data Allergies Allergy/AdvReac Type Severity Reaction Status Date / Time tetanus toxoid, adsorbed Allergy Severe Anaphylaxis Verified 07/16/22 20:34 vancomycin Allergy Severe throat Verified 07/16/22 20:34 swelling Penicillins Allergy Intermediate Rash Verified 07/16/22 20:34 erythromycin base Allergy Mild Rash Verified 07/16/22 20:34 Sulfa (Sulfonamide Allergy Mild RASH Verified 07/16/22 20:34 Antibiotics) Zgzoylu-OZA-CmA Reductase AdvReac Mild Leg cramps Verified 07/16/22 20:34 Inhibitor [Mbeknku-Sun-Jkn Reductase Inhibitor] Consultations 07/16/22 23:31 ED Decision to Admit Stat 07/17/22 09:18 Consult Vascular Surgery Routine Procedures Performed Laboratory Results WBC 7.82 K/ul (4.8-10.8) 07/17/22 05:49 RBC 4.77 M/uL (3.93-5.22) 07/17/22 05:49 Hgb 14.0 g/dl (12.0-16.0) 07/17/22 05:49 Hct 40.1 % (34.1-44.9) 07/17/22 05:49 MCV 84.1 fL (80.0-100.0) 07/17/22 05:49 MCH 29.4 pg (25.0-34.0) 07/17/22 05:49 MCHC 34.9 g/dL (32.0-36.0) 07/17/22 05:49 RDW Std Deviation 51.0 fL (36.4-46.3) H 07/17/22 05:49 RDW Coeff of [place] 16.6 % (11.5-14.5) H 07/17/22 05:49 Plt Count 275 K/uL (130-400) 07/17/22 05:49 MPV 8.9 fL (9.4-12.3) L 07/17/22 05:49 Immature Gran % (Auto) 0.3 % 07/17/22 05:49 Neut % (Auto) 92.4 % 07/17/22 05:49 Lymph % (Auto) 6.1 % 07/17/22 05:49 Falls % (Auto) 0.9 % 07/17/22 05:49 Eos % (Auto) 0.0 % 07/17/22 05:49 Baso % (Auto) 0.3 % 07/17/22 05:49 Neut # (Auto) 7.23 K/uL (1.4-6.5) H 07/17/22 05:49 Lymph # (Auto) 0.48 K/uL (1.2-3.4) L 07/17/22 05:49 Falls # (Auto) 0.07 K/uL (0.24-0.82) L 07/17/22 05:49 Eos # (Auto) 0.00 K/uL (0-0.50) 07/17/22 05:49 Baso # (Auto) 0.02 K/uL (0-0.2) 07/17/22 05:49 Immature Gran # (Auto) 0.02 K/uL (0.00-0.02) 07/17/22 05:49 Toxic Vacuolation 1+ 07/17/22 05:49 Echinocytes 1+ 07/17/22 05:49 APTT Cancelled 07/17/22 00:14 PTT Ratio Cancelled 07/17/22 00:14 ABG pH 7.46 (7.35-7.45) H 07/17/22 00:14 ABG pCO2 40 mmHg (35-46) 07/17/22 00:14 ABG pO2 70 mmHg (80-95) L 07/17/22 00:14 ABG HCO3 28 mmol/L (19-24) H 07/17/22 00:14 ABG O2 Saturation 96.1 % (90-95) H 07/17/22 00:14 ABG Base Excess 4.2 mEq/L (-9-1.8) H 07/17/22 00:14 Yusuf Test Pos (Pos) 07/17/22 00:14 Oxygen Given RA 07/17/22 00:14 Sodium 134 mmol/L (136-145) L 07/19/22 05:24 Potassium 3.5 mmol/L (3.5-5.1) 07/19/22 05:24 Chloride 98 mmol/L (98-107) 07/19/22 05:24 Carbon Dioxide 30 mmol/L (21-32) 07/19/22 05:24 Anion Gap 6 (3-11) 07/19/22 05:24 BUN 18 mg/dl (6-23) 07/19/22 05:24 Creatinine 0.63 mg/dl (0.6-1.2) 07/19/22 05:24 Est Cr Clr Drug Dosing 55.4 ml/min 07/19/22 05:24 Est GFR ( Amer) 97.5 ml/min 07/19/22 05:24 Est GFR (Non-Af Amer) 84.1 ml/min 07/19/22 05:24 BUN/Creatinine Ratio 28.6 (10-20) H 07/19/22 05:24 Glucose 80 mg/dl (70-99(Fasting)) 07/19/22 05:24 Osmolality 280 mOsm/kg (280-300) 07/17/22 05:49 Calcium 9.9 mg/dl (8.5-10.1) 07/19/22 05:24 Phosphorus 3.6 mg/dl (2.5-4.9) 07/16/22 19:28 Magnesium 1.9 mg/dl (1.7-2.4) 07/16/22 19:28 Total Bilirubin 0.5 mg/dl (0.2-1.0) 07/16/22 19:28 AST 17 U/L (13-39) 07/16/22 19:28 ALT 15 U/L (7-52) 07/16/22 19:28 Alkaline Phosphatase 84 U/L (34-104) 07/16/22 19:28 Troponin I High Sens 11.1 pg/ml (0-14) 07/16/22 19:28 Total Protein 7.4 gm/dl (6.0-8.3) 07/16/22 19:28 Albumin 4.1 gm/dl (3.4-5.0) 07/16/22 19:28 Globulin 3.3 gm/dl (2.5-4.0) 07/16/22 19:28 Albumin/Globulin Ratio 1.2 (0.9-2) 07/16/22 19:28 TSH 3.312 uIu/ml (0.300-4.500) 07/16/22 19:28 Urine Color Yellow 07/16/22 20: Urine Appearance Clear (Clear) 07/16/22 20: Urine pH 7.0 (4.5-7.5) 07/16/22 20:01 Ur Specific [place] 1.009 (1.000-1.030) 07/16/22 20:01 Urine Protein Trace (Negative) H 07/16/22 20: Urine Glucose (UA) Negative (Negative) 07/16/22 20: Urine Ketones Negative (Negative) 07/16/22 20: Urine Blood Negative (Negative) 07/16/22 20: Urine Nitrite Negative (Negative) 07/16/22 20: Urine Bilirubin Negative (Negative) 07/16/22 20: Urine Urobilinogen Negative (Negative) 07/16/22 20: Ur Leukocyte Esterase Negative (Negative) 07/16/22 20:01 Urine WBC (Auto) 1-5 /hpf (0-5) 07/16/22 20:01 Urine RBC (Auto) 0-4 /hpf (0-4) 07/16/22 20: U Hyaline Cast (Auto) 0 /lpf (0-5) 07/16/22 20:01 U Epithel Cells (Auto) 0-5 /lpf (0-5) 07/16/22 20:01 Urine Bacteria (Auto) Negative (Negative) 07/16/22 20: Urine Osmolality 416 mOsm/kg (500-800) L 07/17/22 06:00 Ur Random Sodium 101 mmol/L 07/17/22 06:10 SARS-CoV-2 (PCR) NEGATIVE (Negative) 07/16/22 19:31 Influenza Type A (PCR) Negative (Neg) 07/16/22 19: Influenza Type B (PCR) Negative (Neg) 07/16/22: RSV (RT-PCR) Negative (Neg) 07/16/22 19: Impressions Head CT 07/16/22 19: UNENHANCED CT OF THE BRAIN; CT ANGIOGRAM OF THE BRAIN; CT ANGIOGRAM OF THE NECK CLINICAL HISTORY: Dizziness. COMPARISON STUDY: CT of the brain dated 05/28/2022. Chest CT dated 01/04/2020. TECHNIQUE: Unenhanced axial CT scan of the brain is performed. Subsequently, following the IV administration of 111 of Optiray 320, CT angiogram of the head and neck was performed from the aortic arch to the vertex. Images are reviewed in the axial, sagittal, and coronal planes. 3-D MIPS images are created and assessed. IV contrast was administered without complication. All measurements were calculated based on NASCET criteria. A dose lowering technique was utilized adhering to the principles of ALARA. CT DOSE: 1013.22 mGy.cm FINDINGS: Brain parenchyma: There is age-related involutional change noting mild subcortical and periventricular microangiopathic disease. There is no hemorrhage, mass effect, or evidence of acute territorial ischemia by CT criteria. There is no evidence of enhancing mass lesion on the angiogram phase images. The ventricles, sulci, and cisterns are prominent secondary to involutional change. Lazar-white matter differentiation is preserved. No extra- axial fluid collection is seen. Thoracic aorta: There is atherosclerotic calcification of the thoracic aorta. Visualized portions of the thoracic aorta are normal in caliber. The aortic arch demonstrates standard 3-vessel anatomy. Right carotid arterial system: The right common carotid artery is widely patent, as are the right internal and external carotid arteries. Calcified plaque is noted in the carotid bulb. Left carotid arterial system: The left common carotid artery is widely patent, as are the left internal and external carotid arteries. Calcified plaque is noted in the carotid bulb. Vertebral arteries: The vertebral arteries are patent bilaterally Left-sided dominance. Subclavian arteries: The subclavian arteries are patent bilaterally noting atherosclerotic plaque and irregularity. There is moderate stenosis of the right axillary artery seen on image #76. Intracranial vasculature: There is atherosclerotic calcification of the cavernous carotid and vertebral arteries. The internal carotid arteries are patent at the skull base, as are the anterior and middle cerebral arteries bilaterally. There is a left posterior communicating artery. The vertebrobasilar system and posterior cerebral arteries are widely patent. The left vertebral artery is dominant. There is no aneurysm, high-grade stenosis, or focal vessel cut off seen throughout the intracranial circulation. Jugular veins: Patent bilaterally. Dural sinuses: Patent. Lung apices: Emphysematous change is noted. A subpleural opacity at the lateral right apex measures approximately 3.7 x 1.6 cm. Soft tissues: The visualized pharyngeal soft tissues are normal in appearance noting angiographic phase technique. The oropharyngeal airway appears widely patent. The thyroid gland is heterogeneous. The salivary glands are normal in appearance. No cervical lymphadenopathy is seen. Skeletal structures: The skeletal structures are osteopenic. The calvarium appears intact. The cervical spine is maintained noting multilevel spondylosis. No lytic or blastic lesion is seen. Orbits: The bony orbits are intact. Orbital contents are normal as visualized noting bilateral ocular lens implants. Sinuses and mastoids: The paranasal sinuses are clear. The mastoid air cells are well pneumatized. IMPRESSION: 1. There is no hemorrhage, mass effect, or evidence of acute territorial ischemia by CT criteria. 2. Unremarkable CT angiogram of the brain. 3. Unremarkable CT angiogram of the neck. 4. 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 5. Emphysema. 6. There is a 3.7 cm subpleural opacity at the lateral right apex. This likely represents scarring/fibrosis, but this has increased from a [address] Underlying neoplasm would be impossible to exclude. Outpatient follow-up with pulmonology is recommended for further evaluation/workup. ACT 112: Positive. There are findings on this exam that require communication between the performing entity and the patient following Patient Test Result Information Act ([place] Act 112) guidelines. Electronically signed by: Rashid Jarvis M.D. 07/16/2022 10:25 PM Head CTA 07/16/22 19:[address] OF THE BRAIN; CT ANGIOGRAM OF THE BRAIN; CT ANGIOGRAM OF THE NECK CLINICAL HISTORY: Dizziness. COMPARISON STUDY: CT of the brain dated 05/28/2022. Chest CT dated 01/04/2020. TECHNIQUE: Unenhanced axial CT scan of the brain is performed. Subsequently, following the IV administration of 111 of Optiray 320, CT angiogram of the head and neck was performed from the aortic arch to the vertex. Images are reviewed in the axial, sagittal, and coronal planes. 3-D MIPS images are created and assessed. IV contrast was administered without complication. All measurements were calculated based on NASCET criteria. A dose lowering technique was utilized adhering to the principles of ALARA. CT DOSE: 1013.22 mGy.cm FINDINGS: Brain parenchyma: There is age-related involutional change noting mild subcortical and periventricular microangiopathic disease. There is no hemorrhage, mass effect, or evidence of acute territorial ischemia by CT criteria. There is no evidence of enhancing mass lesion on the angiogram phase images. The ventricles, sulci, and cisterns are prominent secondary to involutional change. Lazar-white matter differentiation is preserved. No extra- axial fluid collection is seen. Thoracic aorta: There is atherosclerotic calcification of the thoracic aorta. Vi sualized portions of the thoracic aorta are normal in caliber. The aortic arch demonstrates standard 3-vessel anatomy. Right carotid arterial system: The right common carotid artery is widely patent, as are the right internal and external carotid arteries. Calcified plaque is noted in the carotid bulb. Left carotid arterial system: The left common carotid artery is widely patent, as are the left internal and external carotid arteries. Calcified plaque is noted in the carotid bulb. Vertebral arteries: The vertebral arteries are patent bilaterally Left-sided dominance. Subclavian arteries: The subclavian arteries are patent bilaterally noting atherosclerotic plaque and irregularity. There is moderate stenosis of the right axillary artery seen on image #76. Intracranial vasculature: There is atherosclerotic calcification of the cavernous carotid and vertebral arteries. The internal carotid arteries are patent at the skull base, as are the anterior and middle cerebral arteries bi laterally. There is a left posterior communicating artery. The vertebrobasilar system and posterior cerebral arteries are widely patent. The left vertebral artery is dominant. There is no aneurysm, high-grade stenosis, or focal vessel cut off seen throughout the intracranial circulation. Jugular veins: Patent bilaterally. Dural sinuses: Patent. Lung apices: Emphysematous change is noted. A subpleural opacity at the lateral right apex measures approximately 3.7 x 1.6 cm. Soft tissues: The visualized pharyngeal soft tissues are normal in appearance noting angiographic phase technique. The oropharyngeal airway appears widely patent. The thyroid gland is heterogeneous. The salivary glands are normal in appearance. No cervical lymphadenopathy is seen. Skeletal structures: The skeletal structures are osteopenic. The calvarium appears intact. The cervical spine is maintained noting multilevel spondylosis. No lytic or blastic lesion is seen. Orbits: The bony orbits are intact. Orbital contents are normal as visualized noting bilateral ocular lens implants. Sinuses and mastoids: The paranasal sinuses are clear. The mastoid air cells are well pneumatized. IMPRESSION: 1. There is no hemorrhage, mass effect, or evidence of acute territorial ischemia by CT criteria. 2. Unremarkable CT angiogram of the brain. 3. Unremarkable CT angiogram of the neck. 4. 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 5. Emphysema. 6. There is a 3.7 cm subpleural opacity at the lateral right apex. This likely represents scarring/fibrosis, but this has increased from a [address] Underlying neoplasm would be impossible to exclude. Outpatient follow-up with pulmonology is recommended for further evaluation/workup. ACT 112: Positive. There are findings on this exam that require communication between the performing entity and the patient following Patient Test Result Information Act ([place] Act 112) guidelines. Electronically signed by: Rashid Jarvis M.D. 07/16/2022 10:25 PM Neck CTA 07/16/22 19:[address] OF THE BRAIN; CT ANGIOGRAM OF THE BRAIN; CT ANGIOGRAM OF THE NECK CLINICAL HISTORY: Dizziness. COMPARISON STUDY: CT of the brain dated 05/28/2022. Chest CT dated 01/04/2020. TECHNIQUE: Unenhanced axial CT scan of the brain is performed. Subsequently, following the IV administration of 111 of Optiray 320, CT angiogram of the head and neck was performed from the aortic arch to the vertex. Images are reviewed in the axial, sagittal, and coronal planes. 3-D MIPS images are created and assessed. IV contrast was administered without complication. All measurements were calculated based on NASCET criteria. A dose lowering technique was utilized adhering to the principles of ALARA. CT DOSE: 1013.22 mGy.cm FINDINGS: Brain parenchyma: There is age-related involutional change noting mild subcortical and periventricular microangiopathic disease. There is no hemorrhage, mass effect, or evidence of acute territorial ischemia by CT criteria. There is no evidence of enhancing mass lesion on the angiogram phase images. The ventricles, sulci, and cisterns are prominent secondary to involuti onal change. Lazar-white matter differentiation is preserved. No extra-axial fluid collection is seen. Thoracic aorta: There is atherosclerotic calcification of the thoracic aorta. Visualized portions of the thoracic aorta are normal in caliber. The aortic arch demonstrates standard 3-vessel anatomy. Right carotid arterial system: The right common carotid artery is widely patent, as are the right internal and external carotid arteries. Calcified plaque is noted in the carotid bulb. Left carotid arterial system: The left common carotid artery is widely patent, as are the left internal and external carotid arteries. Calcified plaque is noted in the carotid bulb. Vertebral arteries: The vertebral arteries are patent bilaterally Left-sided dominance. Subclavian arteries: The subclavian arteries are patent bilaterally noting atherosclerotic plaque and irregularity. There is moderate stenosis of the right axillary artery seen on image #76. Intracranial vasculature: There is atherosclerotic calcification of the cavernous carotid and vertebral arteries. The internal carotid arteries are patent at the skull base, as are the anterior and middle cerebral arteries bilaterally. There is a left posterior communicating artery. The vertebrobasilar system and posterior cerebral arteries are widely patent. The left vertebral artery is dominant. There is no aneurysm, high-grade stenosis, or focal vessel cut off seen throughout the intracranial circulation. Jugular veins: Patent bilaterally. Dural sinuses: Patent. Lung apices: Emphysematous change is noted. A subpleural opacity at the lateral right apex measures approximately 3.7 x 1.6 cm. Soft tissues: The visualized pharyngeal soft tissues are normal in appearance noting angiographic phase technique. The oropharyngeal airway appears widely patent. The thyroid gland is heterogeneous. The salivary glands are normal in appearance. No cervical lymphadenopathy is seen. Skeletal structures: The skeletal structures are osteopenic. The calvarium appears intact. The cervical spine is maintained noting multilevel spondylosis. No lytic or blastic lesion is seen. Orbits: The bony orbits are intact. Orbital contents are normal as visualized noting bilateral ocular lens implants. Sinuses and mastoids: The paranasal sinuses are clear. The mastoid air cells are well pneumatized. IMPRESSION: 1. There is no hemorrhage, mass effect, or evidence of acute territorial ischemia by CT criteria. 2. Unremarkable CT angiogram of the brain. 3. Unremarkable CT angiogram of the neck. 4. 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 5. Emphysema. 6. There is a 3.7 cm subpleural opacity at the lateral right apex. This likely represents scarring/fibrosis, but this has increased from a [address] Underlying neoplasm would be impossible to exclude. Outpatient follow-up with pulmonology is recommended for further evaluation/workup. ACT 112: Positive. There are findings on this exam that require communication between the performing entity and the patient following Patient Test Result Information Act ([place] Act 112) guidelines. Electronically signed by: Rashid Jarvis M.D. 07/16/2022 10:25 PM Chest X-Ray 07/17/22 23:58 SINGLE VIEW CHEST CLINICAL HISTORY: Wheezing. FINDINGS: An AP, portable, upright chest radiograph is compared to chest x-ray dictated 07/16/2022 and correlated with chest CT dated 05/28/2022. The cardiomediastinal silhouette is top normal for projection noting atherosclerotic calcification of the thoracic aorta. Emphysema and chronic interstitial thickening is similar to previous. Foci of parenchymal scarring are seen throughout both lungs. No airspace consolidation or large pleural effusion is identified. No pneumothorax is seen. The skeletal structures are osteopenic. Again seen is a comminuted fracture of the right proximal humerus with displaced fragments. Surgical clips project over the axilla bilaterally. IMPRESSION: Emphysematous change with no acute cardiopulmonary abnormality identified. ACT 112: Negative or not required by law. Electronically signed by: Rashid Jarvis M.D. 07/18/2022 8:08 AM Brain MRI 07/18/22 16:46 MR brain wo/w con CLINICAL HISTORY: Dizziness TECHNIQUE: Multiplanar and multisequence MR images of the brain were obtained prior to and following administration of gadolinium contrast. Comparison: Comparison is made to CTA head and neck 07/16/2022 FINDINGS: No abnormal restricted diffusion is identified. Foci of T2 and FLAIR hyperintensity are noted in the paraventricular areas consistent with chronic small vessel ischemic disease. Ex vacuo ventriculomegaly and sulcal enlargement is noted compatible with diffuse encephalomalacia. No mass or abnormal enhancement is seen. There is no mass effect or midline shift. There is no evidence of acute intraparenchymal hemorrhage. No extra axial fluid collections are seen. The corpus callosum, pituitary gland, and cerebellar tonsils appear grossly unremarkable. Flow voids of the major intracranial arterial vessels are identified. The imaged portions of the paranasal sinuses, mastoid air cells, and orbits are unremarkable. IMPRESSION: No acute abnormalities. ACT 112: Negative or not required by law. Electronically signed by: Stefan Max M.D. 07/19/2022 12:11 PM Ordered Studies 07/16/22 19:31 CT angio head w con Stat CT angio neck with con Stat CT head/brain wo con Stat 07/18/22 16:46 MRI Brain [MR brain wo/w con] Routine Hospital Course (1) Acute hypoxemic respiratory failure: Acute hypoxic respiratory failure Acute on Chronic COPD CXR: Emphysematous change with no acute cardiopulmonary abnormality identified. Discontinued prednisone after short course Nebs PRN Wean off of supplemental oxygen to keep saturations 88-92 % Dizziness Likely due to uncontrolled hypertension ? Compliance, family has concerns about patient's ability to take home medications, possible functional disability --CT Head/Head and Neck CTA:There is no hemorrhage, mass effect, or evidence of acute territorial ischemia by CT criteria. Unremarkable CT angiogram of the brain. Unremarkable CT angiogram of the neck. --MRI brain:No acute abnormalities. 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 H/O displaced and slightly comminuted fracture involving the proximal to mid shaft of the right humerus Incidental finding on CT Started on Aspirin Appreciate Vascular Surgery Input: No surgical intervention suggested at this time Lung Opacity CT :There is a 3.7 cm subpleural opacity at the lateral right apex. This likely represents scarring/fibrosis, but this has increased from a [address] Underlying neoplasm would be impossible to exclude. Outpatient follow-up with pulmonology is recommended for further evaluation/workup. -H/O breast Cancer Needs follow-up with pulmonology upon discharge Chronic Hyponatremia ? SIADH No change in mental status Monitor sodium levels Sodium 134 today Hypertension ? Anxiety contributing Continue amlodipine Added Lisinopril 2.5 mg daily Monitor Hyperlipidemia H/O statin intolerance Breast cancer S/P surgery/chemoradiation In remission H/O Memory impairment Ambulatory dysfunction Ongoing tobacco abuse Counselled to quit smoking PT/OT May benefit from SNF Placement Anxiety disorder Continue home meds DVT Px: Heparin SQ Code Status Full code Disposition Refused SNF Plan to discharge home with home health Total Time Total Time Spent Total Time Spent (In Minutes): 48 minutes Discharge Plan Discharge Items Patient Disposition: Home - Home Health Services Reason For Visit: RESP FAILURE Discharge Diagnosis: Acute hypoxic respiratory failure Acute on Chronic COPD Dizziness Hypertension 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 Lung Opacity Chronic Hyponatremia Anxiety Disorder Condition on Discharge: Good Activity: Per Instructions section Exercise/Sports: Gradually increase as tolerated Non-emergency contact: Primary Care Provider and Neurologist Call non-emergency contact if: you have any medication questions, your symptoms worsen, your pain is concerning for you and you have a fever Follow-up/Referrals: Ladarius Dudley MD [Primary Care Provider] - Diet: Heart Healthy Fluids: 2000ml (8 cups) Diet Texture: Easy to Chew Addtl Attending Provider Instructions: Follow-up with your primary care physician in 1 week Follow up with your Neurologist and ENT for further evaluation of dizziness as advised Consider following with your psychiatrist for management of your anxiety. --You are noted to have lung opacity which is increased from prior CT chest in 2019. Follow-up with your senior [employer] developer for further evaluation and work-up. --Start taking lisinopril 2.5 mg daily for better control of blood pressure. Discuss with your physician for further adjustment of medications to control of blood pressure as needed ---Quit smoking tobacco as advised. Seek immediate medical attention if your symptoms reoccur or worsen Please take all medications as instructed on discharge list below. Please call if you have any questions or problems. You can reach a [facility] hospitalist on duty at [facility] 24 hours a day by calling [phone] Pending Studies at Discharge: No Stand-Alone Forms: My [facility], Smoking Cessation Medications and DC Order Prescriptions: New lisinopril 2.5 mg Tablet 2.5 mg PO QAM Qty: 30 0RF aspirin [Children's Aspirin] 81 mg Tablet,Chewable 81 mg PO DAILY Qty: 30 0RF Continued omeprazole 20 mg capsule,delayed release(DR/EC) 20 mg PO BID Qty: 180 3RF diclofenac sodium 1 % gel 2 g TOPICAL QID PRN (Reason: arthralgia) Qty: 100 3RF alprazolam 1 mg tablet 1 mg PO BID PRN (Reason: anxiety) Qty: 180 0RF amlodipine 5 mg tablet 5 mg PO DAILY Qty: 90 3RF Label Comments: TAKES QAM ondansetron HCl 4 mg tablet 4 mg PO Q8H PRN (Reason: nausea and vomiting) Qty: 90 0RF docusate sodium 100 mg capsule 100 mg PO BID Qty: 180 3RF magnesium oxide 400 mg magnesium tablet 400 mg PO DAILY melatonin 10 mg tablet 10 mg PO HS PRN (Reason: Sleep) albuterol sulfate [Proventil HFA] 90 mcg/actuation HFA aerosol inhaler 2 inh inhalation Q6H PRN (Reason: shortness of breath or wheezing) Qty: 8.5 0RF fluticasone propionate 50 mcg/actuation spray,suspension 2 spray INTRANASAL DAILY amoxicillin 500 mg capsule 2,000 mg PO DIRECTED PRN (Reason: PRIOR TO DENTAL APPT.) triamcinolone acetonide 0.025 % cream 1 applic TOP .COMPLEX PRN (Reason: Skin Irritation) Rx Instructions: APPLY SPARINGLY TO AFFECTED AREA(S) 2-3 TIMES DAILY. Discharge Orders: Discharge Order (Routine); Ordered 07/19/22 Ordered By: Al Mcgill Admission Data Admit Date/Time: 07/17/22 00:49 Attending Provider: Al Mcgill Admit Provider: Jonn Kat Primary Care Provider: Ladarius Dudley Other Providers: Jonn Kat ; [facility] ; [place]
[2022-07-19 15:27] VITALS: PULSE 91
== END 2022-07-19 18:49 | disposition home health service (06) | DRG 190 ==
LOC: ED 18:38 → SUATTDRO 07-17 00:49 → 2W 07-17 00:49
DX: Z71.6 Tobacco abuse counseling; Z79.899 Other long term (current) drug therapy; F41.9 Anxiety disorder, unspecified; E86.0 Dehydration; Z88.2 Allergy status to sulfonamides; I73.9 Peripheral vascular disease, unspecified; F17.210 Nicotine dependence, cigarettes, uncomplicated; E22.2 Syndrome of inappropriate secretion of antidiuretic hormone; Z91.81 History of falling; J44.1 Chronic obstructive pulmonary disease with (acute) exacerbation; N18.9 Chronic kidney disease, unspecified; R26.2 Difficulty in walking, not elsewhere classified; R42 Dizziness and giddiness; Z87.81 Personal history of (healed) traumatic fracture; E78.5 Hyperlipidemia, unspecified; Z88.1 Allergy status to other antibiotic agents; R41.3 Other amnesia; Z88.8 Allergy status to other drugs, medicaments and biological substances; R91.8 Other nonspecific abnormal finding of lung field; Z20.822 Contact with and (suspected) exposure to COVID-19; I12.9 Hypertensive chronic kidney disease with stage 1 through stage 4 chronic kidney disease, or unspecified chronic kidney disease; Z88.0 Allergy status to penicillin; I77.1 Stricture of artery; Z88.7 Allergy status to serum and vaccine; J96.01 Acute respiratory failure with hypoxia; Z23 Encounter for immunization; K21.9 Gastro-esophageal reflux disease without esophagitis